=== PATIENT | male | born 1950 | race Caucasian/White ===

== ENCOUNTER 2019-12-31 11:15 | Outpatient (RCR) | payer OTHER, SELFPAY ==
[2019-12-31 13:33] LABS: Abs Immature Grans 0.07 k/cumm (0.0-0.09); Absolute Basophil Count 0.01 k/cumm (0.0-0.2); Absolute Eosinophil Count 0.03 k/cumm (0.0-0.7); Absolute Monocyte Count 1.25 k/cumm (0.11-0.7); Basophils % 0.1; Eosinophils % 0.3; HCT 24.9 % (40.0-50.0); HGB 8.2 g/dL (13.5-17.5); Immature Grans % 0.6 %; Lymphocytes % 14.2; Mean Corp. HGB Concentration 32.9 g/dL (32.0-36.0); Mean Corpuscular Hemoglobin 32.2 pg (27.0-33.0); Mean Corpuscular Volume 97.6 fL (80-95); Mean Platelet Volume 8.4 fL (8.0-11.0); Monocytes % 11.1; Neutrophils % 73.7; Platelet Count 506 x1000/uL (130-400); RBC 2.55 m/cumm (4.50-6.00); RBC Distribution Width 17.7 % (11.8-14.1); White Blood Cell Count 11.28 k/cumm (4.4-10.8)
[2019-12-31 13:38] LABS: Absolute Neutrophil Count 8.31 k/cumm (1.2-6.7)
[2019-12-31 13:56] LABS: Anion Gap 9.5 mmol/L (3-11); BUN 7 mg/dL (7-18); CO2 28.5 mmol/L (21.0-32.0); CREATININE 0.78 mg/dL (0.70-1.30); Chloride 94 mmol/L (98-107); Glucose 120 mg/dL (74-106); Sodium 132 mmol/L (136-145)
[2019-12-31 14:11] LABS: Potassium 2.6 mmol/L (3.5-5.1)
[2019-12-31 14:13] LABS: Diff Comment Diff Reviewed; Hypochromasia 1+; Polychromasia Present
[2020-01-02 13:12] LABS: COVID-19 RT-PCR Result NEGATIVE (Negative)
== END 2020-01-27 23:59 | disposition home or self-care (01) ==
LOC: INF 11:15
PROVIDERS: PCP Family Medicine; Visit Provider Family Medicine
DX: C34.91 Malignant neoplasm of unspecified part of right bronchus or lung (principal); Z11.59 Encounter for screening for other viral diseases
CPT/HCPCS: 80048; U0003; 85025

== ENCOUNTER 2019-12-31 15:17 | Inpatient (IN) | payer OTHER, SELFPAY ==
[2019-12-31] VITALS (71 sets, daily range): BP systolic 105–148; BP diastolic 47–106; PULSE 82–111; RESP 12–28; TEMP 37–37.6; O2SAT 86–97
--- NOTE | 2019-12-31 16:32 | W.ED.GENAD ---
Discharge Plan Disposition Patient Disposition: [facility] INPATIENT Condition: Serious Discharge Details Chief Complaint: GenMedical Clinical Impression: Anemia, Hypokalemia, Hypomagnesemia, Hypocalcemia Primary Care Provider: Mat Mix ED Provider: Ramesh Smith Home Meds and New Rx's Prescriptions: No Action albuterol sulfate [Proventil HFA] 6.7 GM HFA aerosol inhaler 2 puff Inhalation QID PRNQty: 3 RF: 1 Fluticasone/Umeclidin/Vilanter [Trelegy Ellipta 100-62.5-25] 1 EACH BLST.W.DEV 1 ea Inhalation DAILY RF: 0 albuterol sulfate 2.5 mg /3 mL (0.083 %) solution for nebulization 2.5 mg Inhalation Q6H PRN Qty: 180 RF: 4 atorvastatin [Lipitor] 40 mg tablet 20 mg PO DAILY Qty: 45 RF: 4 diltiazem HCl [Cartia XT] 240 mg capsule,extended release 24hr 240 mg PO DAILY Qty: 90 RF: 4 lansoprazole [Prevacid] 30 mg capsule,delayed release(DR/EC) 30 mg PO DAILY Qty: 90 RF: 4 losartan 25 mg tablet 25 mg PO DAILY Qty: 90 RF: 4 oxybutynin chloride 5 mg tablet extended release 24hr 5 mg PO DAILY Qty: 90 RF: 4 tamsulosin 0.4 mg capsule 0.4 mg PO DAILY Qty: 90 RF: 4 sertraline 100 mg tablet 100 mg PO DAILY Qty: 90 RF: 4 aspirin [Ecotrin Low Strength] 81 mg tablet,delayed release (DR/EC) 81 mg PO DAILY Qty: 90 RF: 4 loratadine 10 MG tablet 1 tab PO DAILY PRNRF: 0 fish,bora,flax oils-om3,6,9no1 [[place] 3-6-9 Complex] 400 MG capsule 1 tab PO DAILY RF: 0 Medical Decision Making 69-year-old gentleman presenting after routine blood draw reveals hypokalemia. Patient is currently asymptomatic. He does have recent history of sepsis, right arm PICC line, receiving ceftriaxone daily. He denies any chest pain, fever, dysuria whatsoever. Will obtain EKG, CBC, CMP, magnesium. We will give both p.o. and IV magnesium and reassess. Laboratory values reveal WBC of 12.04 hemoglobin 7.7 hematocrit 23.9 platelet count 449. Sodium 132 potassium 2.7 chloride 95, estimated GFR greater than 60. Creatinine 0.85. Calcium 6.8 magnesium 0.8. Patient given IV potassium, magnesium, calcium. Discussed patient's laboratory values with him. He reports that he has not been eating well lately. He denies any history of anemia or requiring blood transfusion. As above patient is a rather vague and poor historian and I certainly feel as though there is more to the story. He is unable to tell me the exact time when he finished his chemotherapy or what medication he was taking. I attempted to review the annual physical yesterday provided by Dr. Mix however unable to obtain much more information. I spoke with the patient's on the phone, she did have records from [place]. She provided these to me. At the moment the ER is rather busy, I did not have time to read through all the records extremely carefully. Reviewing laboratory values from approximately 2 months ago at that time his hematocrit and hemoglobin were normal. Type and screen obtained, will give the patient 2 units of blood products. Of note after the H&H did result, I did a rectal examination. Normal rectal tone. Stool color brown. Heme negative. Given his multiple electrolyte abnormalities, what appears to be new anemia, I do believe that the patient is likely best served admitted to our facility to receive blood products and align his electrolytes. Patient already has a COVID test pending Case, work-up, addition discussed with Dr. Brody I discussed the case with Dr. Hutchison who evaluated the patient here in the ER, is agreeable to admission. Medical Records Medical records reviewed: Yes I reviewed the patient's medical records. Lab Data Lab results reviewed: Yes I reviewed the patient's lab results. Lab results narrative: Laboratory Tests Range/Units 12/31/19 12/31/19 12/31/19 16:37 16:37 17:59 WBC (4.4-10.8) k/cumm 12.04 H RBC (4.50-6.00) m/cumm 2.46 L Hgb (13.5-17.5) g/dL 7.7 L Hct (40.0-50.0) % 23.9 L MCV (80-95) fL 97.2 H MCH (27.0-33.0) pg 31.3 MCHC (32.0-36.0) g/dL 32.2 RDW (11.8-14.1) % 17.7 H Plt Count (130-400) x1000/uL 449 H MPV (8.0-11.0) fL 8.3 Immature Gran % % 0.6 Neutrophils % 72.5 Band Neutrophils % Lymphocytes % 15.6 Atypical Lymphs % Monocytes % 11.0 Eosinophils % 0.2 Basophils % 0.1 Metamyelocytes % Myelocytes % Promyelocytes % Absolute Neutrophils (1.2-6.7) k/cumm 8.73 H Absolute Lymphocytes (1.2-3.4) k/cumm 1.88 Absolute Monocytes (0.11-0.7) k/cumm 1.32 H Absolute Eosinophils (0.0-0.7) k/cumm 0.02 Absolute Basophils (0.0-0.2) k/cumm 0.01 Nucleated RBCs Differential Comment Other Cell Type RBC Morphology Polychromasia Hypochromasia Poikilocytosis Basophilic Stippling Anisocytosis Microcytosis Macrocytosis Spherocytes Target Cells Tear Drop Cells Ovalocytes Stomatocytes Heredia-[place] Bodies Maribel Cells Acanthocytes (Spur) Schistocytes Sodium (136-145) mmol/L 132 L Cancelled Potassium (3.5-5.1) mmol/L 2.7 L* Cancelled Chloride (98-107) mmol/L 95 L Cancelled Carbon Dioxide (21.0-32.0) mmol/L 29.4 Cancelled Anion Gap (3-11) mmol/L 7.6 Cancelled BUN (7-18) mg/dL 8 Cancelled Creatinine (0.70-1.30) mg/dL 0.85 Cancelled Estimated GFR/1.73 m2 (mL/min/1.73m2) >= 60.00 Cancelled Glucose (74-106) mg/dL 106 Cancelled Calcium (8.5-10.1) mg/dL 6.8 L Cancelled Magnesium (1.8-2.4) mg/dL 0.8 L Cancelled Total Bilirubin (0.2-1.0) mg/dL 0.6 Cancelled AST (15-37) U/L 29 Cancelled ALT (16-63) U/L 27 Cancelled Alkaline Phosphatase (46-116) U/L 75 Cancelled Troponin I Cancelled Total Protein (6.4-8.2) g/dL 6.8 Cancelled Albumin (3.4-5.0) g/dL 2.0 L Cancelled Patient ABO/Rh Antibody Screen Crossmatch Range/Units 12/31/19 12/31/19 12/31/19 17:59 18:20 20:59 WBC (4.4-10.8) k/cumm Cancelled RBC (4.50-6.00) m/cumm Cancelled Hgb (13.5-17.5) g/dL Cancelled Hct (40.0-50.0) % Cancelled MCV (80-95) fL Cancelled MCH (27.0-33.0) pg Cancelled MCHC (32.0-36.0) g/dL Cancelled RDW (11.8-14.1) % Cancelled Plt Count (130-400) x1000/uL Cancelled MPV (8.0-11.0) fL Cancelled Immature Gran % % Cancelled Neutrophils % Cancelled Band Neutrophils % Cancelled Lymphocytes % Cancelled Atypical Lymphs % Cancelled Monocytes % Cancelled Eosinophils % Cancelled Basophils % Cancelled Metamyelocytes % Cancelled Myelocytes % Cancelled Promyelocytes % Cancelled Absolute Neutrophils (1.2-6.7) k/cumm Cancelled Absolute Lymphocytes (1.2-3.4) k/cumm Cancelled Absolute Monocytes (0.11-0.7) k/cumm Cancelled Absolute Eosinophils (0.0-0.7) k/cumm Cancelled Absolute Basophils (0.0-0.2) k/cumm Cancelled Nucleated RBCs Cancelled Differential Comment Cancelled Other Cell Type Cancelled RBC Morphology Cancelled Polychromasia Cancelled Hypochromasia Cancelled Poikilocytosis Cancelled Basophilic Stippling Cancelled Anisocytosis Cancelled Microcytosis Cancelled Macrocytosis Cancelled Spherocytes Cancelled Target Cells Cancelled Tear Drop Cells Cancelled Ovalocytes Cancelled Stomatocytes Cancelled Heredia-[place] Bodies Cancelled Maribel Cells Cancelled Acanthocytes (Spur) Cancelled Schistocytes Cancelled Sodium (136-145) mmol/L Potassium (3.5-5.1) mmol/L Chloride (98-107) mmol/L Carbon Dioxide (21.0-32.0) mmol/L Anion Gap (3-11) mmol/L BUN (7-18) mg/dL Creatinine (0.70-1.30) mg/dL Estimated GFR/1.73 m2 (mL/min/1.73m2) Glucose (74-106) mg/dL Calcium (8.5-10.1) mg/dL Magnesium (1.8-2.4) mg/dL Total Bilirubin (0.2-1.0) mg/dL AST (15-37) U/L ALT (16-63) U/L Alkaline Phosphatase (46-116) U/L Troponin I Cancelled Total Protein (6.4-8.2) g/dL Albumin (3.4-5.0) g/dL Patient ABO/Rh O Positive Antibody Screen Negative Crossmatch See Detail ECG Data Attestation: I personally reviewed and interpreted this ECG (s) as follows: Interpretation: EKG performed at 1628. Sinus tachycardia, ventricular rate 105. Low voltage. No STEMI. Reviewed and interpreted with Dr. Brody HPI General Mode of arrival: ambulatory. Date/Time Provider Initiated Documentation: 12/31/19 15:18. Limitations to Documentation: no limitations. Information obtained by: patient. HPI Narrative: This is a 69-year-old gentleman with history of small cell carcinoma, GERD, smoker, chronic back pain, morbid obesity, hypertension, anxiety, recently diagnosed with sepsis in [place], PICC line in his right arm, receiving ceftriaxone daily. He was scheduled for routine laboratory draw today, subsequently received a phone call from his primary care office telling him to come to the ER for a low potassium. Patient reports that he generally feels well, just overall mild fatigue.. Denies headache, fever, chest pain. He reports a chronic dry cough secondary to his COPD but no acute changes of his cough or dyspnea. Denies abdominal pain, nausea, vomiting. Does report chronic back pain. Patient reports that he is scheduled to receive his antibiotics for another few days and then had his PICC line removed on Sunday here at this facility. He denies any dysuria or diarrhea. He tells me that he has never had low potassium before. The patient reports that he had 2- COVID test in [place], was tested again today, results pending. Patient is a very vague and poor historian. Related Data Home Medications Medication Instructions Recorded Confirmed fish,bora,flax oils-om3,6,9no1 1 tab PO DAILY 01/07/15 12/31/19 [[place] 3-6-9 Complex] loratadine 1 tab PO DAILY PRN 01/07/15 12/31/19 albuterol sulfate [Proventil Hfa] 2 puff INHALATION QID PRN #3 ea 05/31/16 12/31/19 Fluticasone/Umeclidin/Vilanter 1 ea INHALATION DAILY 12/18/17 12/31/19 [Trelegy Ellipta 100-62.5-25] albuterol sulfate 2.5 mg INHALATION Q6H PRN #180 ea 01/14/19 12/31/19 atorvastatin 40 mg tablet 20 mg PO DAILY #45 tab 01/14/19 12/31/19 diltiazem HCl 240 mg 240 mg PO DAILY #90 tab-cap 01/14/19 12/31/19 capsule,extended release 24 hr lansoprazole 30 mg capsule,delayed 30 mg PO DAILY #90 tab-cap 01/14/19 12/31/19 release losartan 25 mg tablet 25 mg PO DAILY #90 tab-cap 01/14/19 12/31/19 oxybutynin chloride 5 mg 5 mg PO DAILY #90 tab-cap 01/14/19 12/31/19 tablet,extended release 24 hr tamsulosin 0.4 mg capsule 0.4 mg PO DAILY #90 tab-cap 01/14/19 12/31/19 sertraline 100 mg tablet 100 mg PO DAILY #90 tab-cap 02/04/19 12/31/19 aspirin 81 mg tablet,delayed 81 mg PO DAILY #90 tab-cap 03/18/19 12/31/19 release Previous Rx's Medication Instructions Recorded albuterol sulfate 2.5 mg INHALATION Q6H PRN #180 ea 01/14/19 atorvastatin 40 mg tablet 20 mg PO DAILY #45 tab 01/14/19 diltiazem HCl 240 mg 240 mg PO DAILY #90 tab-cap 01/14/19 capsule,extended release 24 hr lansoprazole 30 mg capsule,delayed 30 mg PO DAILY #90 tab-cap 01/14/19 release losartan 25 mg tablet 25 mg PO DAILY #90 tab-cap 01/14/19 oxybutynin chloride 5 mg 5 mg PO DAILY #90 tab-cap 01/14/19 tablet,extended release 24 hr tamsulosin 0.4 mg capsule 0.4 mg PO DAILY #90 tab-cap 01/14/19 sertraline 100 mg tablet 100 mg PO DAILY #90 tab-cap 02/04/19 aspirin 81 mg tablet,delayed 81 mg PO DAILY #90 tab-cap 03/18/19 release Allergies Allergy/AdvReac Type Severity Reaction Status Date / Time lansoprazole Allergy Severe SKIN RASH Unverified 12/31/19 15:38 General Stated Complaint: GenMedical BEATRIZ: 2 Review of Systems Constitutional Constitutional: Denies fatigue, Denies fever(s) and Denies weakness ENT Ears, Nose, Mouth, and Throat: Denies sore throat Cardiovascular Cardiovascular: Denies chest pain and Denies dyspnea Respiratory Respiratory: Reports cough (Chronic) and Denies dyspnea Gastrointestinal Gastrointestinal: Denies abdominal pain, Denies nausea and Denies vomiting Genitourinary Genitourinary: Denies dysuria Musculoskeletal Musculoskeletal: Reports back pain, Denies numbness and Denies tingling Integumentary/Breasts Skin/Breast: Denies rash Neurologic Neurologic: Denies numbness, Denies tingling and Denies weakness Endocrine Endocrine: Denies fatigue PFS Surgical History Open Carpal Tunnel release right Repair, ACL (~1991) Family History Mother , 53 Essential hypertension Heart disease Stroke Father , 79 Essential hypertension Asthma Prostate cancer COPD (chronic obstructive pulmonary disease) Sister No problems noted. Sister Essential hypertension Brother Essential hypertension Maternal Grandfather No problems noted. Paternal Grandfather Prostate cancer Maternal Grandmother Diabetes Essential hypertension Paternal Grandmother Diabetes Essential hypertension Heart disease Son Essential hypertension Daughter Essential hypertension Social History Smoking/Tobacco Use Status: Former Tobacco Use Quit Date: 11/27/12 Alcohol Intake: current Alcohol Intake frequency: a few times a week Alcohol type: beer Drug use: Socially Substance use type: does not use Counseling given: Yes Household members: spouse Housing: other Details: Camper Pets and animals: No Sexually active: No Do you think of yourself as: straight/heterosexual Current gender identity: male What is your relationship status?: How often do you talk on the phone with friends or family?: decline to answer How often do you get together with friends or relatives?: once per week How often do you attend mormonism or bahai services?: decline to answer Do you belong to any clubs or organized social groups?: yes Panel score (0-1 are the most socially isolated patients): 2 Duration: 45-60 minutes/day Frequency: daily Munira/Restoration: Latter-Day Special munira needs: Yes Details: Last rites Seatbelt use: always Drive intox or ride w/intox hook up driver: No Do you feel safe at home: Yes Do you feel safe in your relationship?: Yes Exam Const General: cooperative, healthy appearing, comfortable and no acute distress Orientation: alert, awake and oriented x3 HENMT Head: normal to inspection, normocephalic and atraumatic Mouth: moist mucous membranes Throat: posterior oropharynx normal Eyes Conjunctivae: conjunctivae normal Neck Neck: normal visual inspection, full ROM, trachea midline, supple and nontender Resp Effort & Inspection: normal respiratory effort and able to speak in complete sentences Auscultation: diminished lung sounds bilaterally in the lower lung armendariz (Otherwise unremarkable) Cardio Rate: regular rate (94) Rhythm: regular rhythm GI Inspection: normal to inspection and obesity Palpation: soft and nontender Back/Spine/Pelvis Back: back tenderness (Diffuse lumbar, slightly worse in the left) Skin General skin exam: no rashes or lesions noted Neuro General: patient alert, patient awake, patient oriented x3, moves all extremities and no focal motor deficits Motor: muscle tone normal throughout and strength 5/5 throughout Sensory Exam: no sensory deficits noted Extrem General: normal to inspection, full ROM, capillary refill normal and other (Right upper extremity PICC line in place) Psych Appearance: grossly normal Mental Status: mental status grossly normal Course Vital Signs Vital signs: Vital Signs Temperature 37.6 C 12/31/19 15:28 Pulse 99 H 12/31/19 15:28 Respiratory Rate 17 12/31/19 15:28 Blood Pressure 121/59 L 12/31/19 15:28 Pulse Oximetry 95 12/31/19 15:28 Temperature 37.6 C 12/31/19 15:28 Temperature Source Oral 12/31/19 15:28 Pulse 99 H 12/31/19 15:28 Respiratory Rate 17 12/31/19 15:28 Respiratory Effort Pursed Lip 12/31/19 15:37 Blood Pressure 121/59 L 12/31/19 15:28 Blood Pressure Position Supine 12/31/19 15:28 Pulse Oximetry 95 12/31/19 15:28 Oxygen Delivery Method Room Air 12/31/19 15:28 Oxygen Flow Rate 0 12/31/19 15:28 Pain Level 0 12/31/19 15:28 Critical Care Time Critical Care Time Critical Care Time: Yes Total Critical Care Time: 35 Attestation: Upon my evaluation, this patient had a high probability of clinically significant, life-threatening deterioration due to their current medical conditions, which required my direct attention, intervention, and personal management. I have personally provided greater than 30 minutes of critical care time exclusive of the time spend on separately billable procedures. Time includes obtaining a history, examining the patient, pulse oximetry, review of laboratory data, radiology results, discussion with consultants, arranging urgent treatment with development of a management plan, evaluation of patient's response to treatment, and monitoring for potential decompensation. Interventions were performed as documented above.
[2019-12-31 16:45] LABS: Abs Immature Grans 0.07 k/cumm (0.0-0.09); Absolute Basophil Count 0.01 k/cumm (0.0-0.2); Absolute Lymphocyte Count 1.88 k/cumm (1.2-3.4); Basophils % 0.1; Eosinophils % 0.2; HCT 23.9 % (40.0-50.0); HGB 7.7 g/dL (13.5-17.5); Immature Grans % 0.6 %; Lymphocytes % 15.6; Mean Corp. HGB Concentration 32.2 g/dL (32.0-36.0); Mean Corpuscular Hemoglobin 31.3 pg (27.0-33.0); Mean Corpuscular Volume 97.2 fL (80-95); Mean Platelet Volume 8.3 fL (8.0-11.0); Neutrophils % 72.5; Platelet Count 449 x1000/uL (130-400); RBC 2.46 m/cumm (4.50-6.00); RBC Distribution Width 17.7 % (11.8-14.1); White Blood Cell Count 12.04 k/cumm (4.4-10.8)
[2019-12-31 16:46] LABS: Absolute Eosinophil Count 0.02 k/cumm (0.0-0.7); Absolute Monocyte Count 1.32 k/cumm (0.11-0.7); Absolute Neutrophil Count 8.73 k/cumm (1.2-6.7)
[2019-12-31] MEDS: Potassium Chloride 20 MEQ TABCR 40 MEQ PO (16:46)
[2019-12-31] MEDS: POTASSIUM CHLORIDE 20 MEQ/100 ML BAG 50 MEQ IVPB (16:47)
[2019-12-31 17:00] LABS: ALT 27 U/L (16-63); AST 29 U/L (15-37); Alkaline Phosphatase 75 U/L (46-116); Anion Gap 7.6 mmol/L (3-11); BUN 8 mg/dL (7-18); Bilirubin, Total 0.6 mg/dL (0.2-1.0); CO2 29.4 mmol/L (21.0-32.0); CREATININE 0.85 mg/dL (0.70-1.30); Chloride 95 mmol/L (98-107); Glucose 106 mg/dL (74-106); Sodium 132 mmol/L (136-145); Total Protein 6.8 g/dL (6.4-8.2)
[2019-12-31] MEDS: Normal Saline 1,000 ML 150 ML IV ×2 (17:00→21:09)
[2019-12-31 17:05] LABS: Potassium 2.7 mmol/L (3.5-5.1)
[2019-12-31 17:06] LABS: Calcium 6.8 mg/dL (8.5-10.1); Magnesium 0.8 mg/dL (1.8-2.4)
[2019-12-31] MEDS: MAGNESIUM SULFATE 2 GM/50 ML BAG IVPB (17:46)
--- NOTE | 2019-12-31 19:08 | W.PM.HP.N ---
Date of service: 12/31/19 Time of Service: 19:08 Assessment and Plan Assessment and plan (1) Weakness: Status: Acute Assessment and plan: 1. Weakness. No doubt multifactorial, with contributions from baseline anemia, electrolyte disturbances, generalized malnutrition, sequelae of recent sepsis -- and underlying malignancy. 2. Sepsis: continue Rocephin 3. Hypokalemia: replace and monitor 4. Hypomag: replace and monitor 5. Hypocalcemia: corrects to normal, no treatment required 6. Anemia: follow for now, unclear if related to recent chemo or disease or other 7. 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 Was seen PCP tday, labs drawn and then asked to come to ER for various abnormalities: K 2.7, Ca 6.8 (alb 2.0), Mg 0.8, Hct 23 (this is similar to most recent from [place]). States he feels generally weak, but actually better since he has been here; has received amp Ca; 2 gm Mg; KCl (20 IV, 40 PO). Admitted for further management. Review of Systems All systems reviewed & are unremarkable except as noted in HPI and below PFSH Surgical History Open Carpal Tunnel release right Repair, ACL (~1991) Family History Mother , 53 Essential hypertension Heart disease Stroke Father , 79 Essential hypertension Asthma Prostate cancer COPD (chronic obstructive pulmonary disease) Sister No problems noted. Sister Essential hypertension Brother Essential hypertension Maternal Grandfather No problems noted. Paternal Grandfather Prostate cancer Maternal Grandmother Diabetes Essential hypertension Paternal Grandmother Diabetes Essential hypertension Heart disease Son Essential hypertension Daughter Essential hypertension Social History Smoking/Tobacco Use Status: Former Tobacco Use Quit Date: 11/27/12 Alcohol Intake: current Alcohol Intake frequency: a few times a week Alcohol type: beer Drug use: Socially Substance use type: does not use Counseling given: Yes Household members: spouse Housing: other Details: Camper Pets and animals: No Sexually active: No Do you think of yourself as: straight/heterosexual Current gender identity: male What is your relationship status?: How often do you talk on the phone with friends or family?: decline to answer How often do you get together with friends or relatives?: once per week How often do you attend islam or rastafari services?: decline to answer Do you belong to any clubs or organized social groups?: yes Panel score (0-1 are the most socially isolated patients): 2 Duration: 45-60 minutes/day Frequency: daily Munira/Nondenominational: Caodaism Special munira needs: Yes Details: Last rites Seatbelt use: always Drive intox or ride w/intox delivery driver: No Do you feel safe at home: Yes Do you feel safe in your relationship?: Yes Meds Home Medications and Allergies Home Medications Medication Instructions Recorded Confirmed Type fish,bora,flax oils-om3,6,9no1 1 tab PO DAILY 01/07/15 12/31/19 History [[place] 3-6-9 Complex] loratadine 1 tab PO DAILY PRN 01/07/15 12/31/19 History albuterol sulfate [Proventil Hfa] 2 puff INHALATION QID PRN #3 ea 05/31/16 12/31/19 History Fluticasone/Umeclidin/Vilanter 1 ea INHALATION DAILY 12/18/17 12/31/19 History [Trelegy Ellipta 100-62.5-25] albuterol sulfate 2.5 mg INHALATION Q6H PRN #180 ea 01/14/19 12/31/19 Rx atorvastatin 40 mg tablet 20 mg PO DAILY #45 tab 01/14/19 12/31/19 Rx diltiazem HCl 240 mg 240 mg PO DAILY #90 tab-cap 01/14/19 12/31/19 Rx capsule,extended release 24 hr lansoprazole 30 mg capsule,delayed 30 mg PO DAILY #90 tab-cap 01/14/19 12/31/19 Rx release losartan 25 mg tablet 25 mg PO DAILY #90 tab-cap 01/14/19 12/31/19 Rx oxybutynin chloride 5 mg 5 mg PO DAILY #90 tab-cap 06/18/19 06/03/20 Rx tablet,extended release 24 hr tamsulosin 0.4 mg capsule 0.4 mg PO DAILY #90 tab-cap 01/14/19 12/31/19 Rx sertraline 100 mg tablet 100 mg PO DAILY #90 tab-cap 02/04/19 12/31/19 Rx aspirin 81 mg tablet,delayed 81 mg PO DAILY #90 tab-cap 03/18/19 12/31/19 Rx release Allergies Allergy/AdvReac Type Severity Reaction Status Date / Time lansoprazole Allergy Severe SKIN RASH Unverified 12/31/19 15:38 Exam Narrative Exam Narrative: 112/71, 95, 22, 37.6, 96% 1L. HEENT atraumatic; neck supple; lungs clear; heart distant, frequent ectopic; abdomen soft and NT; extremities w/o edema; neuro ox3, non-focal Results Labs Result diagrams: 12/31/19 16:37 12/31/19 16:37 Labs: Laboratory Results - last 24 hr 12/31/19 12/31/19 12/31/19 16:37 16:37 17:59 WBC 12.04 H RBC 2.46 L Hgb 7.7 L Hct 23.9 L MCV 97.2 H MCH 31.3 MCHC 32.2 RDW 17.7 H Plt Count 449 H MPV 8.3 Immature Gran % 0.6 Neutrophils % 72.5 Band Neutrophils % Lymphocytes % 15.6 Atypical Lymphs % Monocytes % 11.0 Eosinophils % 0.2 Basophils % 0.1 Metamyelocytes % Myelocytes % Promyelocytes % Absolute Neutrophils 8.73 H Absolute Lymphocytes 1.88 Absolute Monocytes 1.32 H Absolute Eosinophils 0.02 Absolute Basophils 0.01 Nucleated RBCs Differential Comment Other Cell Type RBC Morphology Polychromasia Hypochromasia Poikilocytosis Basophilic Stippling Anisocytosis Microcytosis Macrocytosis Spherocytes Target Cells Tear Drop Cells Ovalocytes Stomatocytes Heredia-[place] Bodies [place] Cells Acanthocytes (Spur) Schistocytes Sodium 132 L Cancelled Potassium 2.7 L* Cancelled Chloride 95 L Cancelled Carbon Dioxide 29.4 Cancelled Anion Gap 7.6 Cancelled BUN 8 Cancelled Creatinine 0.85 Cancelled Estimated GFR/1.73 m2 >= 60.00 Cancelled Glucose 106 Cancelled Calcium 6.8 L Cancelled Magnesium 0.8 L Cancelled Total Bilirubin 0.6 Cancelled AST 29 Cancelled ALT 27 Cancelled Alkaline Phosphatase 75 Cancelled Troponin I Cancelled Total Protein 6.8 Cancelled Albumin 2.0 L Cancelled Crossmatch 12/31/19 12/31/19 12/31/19 17:59 18:20 20:59 WBC Cancelled RBC Cancelled Hgb Cancelled Hct Cancelled MCV Cancelled MCH Cancelled MCHC Cancelled RDW Cancelled Plt Count Cancelled MPV Cancelled Immature Gran % Cancelled Neutrophils % Cancelled Band Neutrophils % Cancelled Lymphocytes % Cancelled Atypical Lymphs % Cancelled Monocytes % Cancelled Eosinophils % Cancelled Basophils % Cancelled Metamyelocytes % Cancelled Myelocytes % Cancelled Promyelocytes % Cancelled Absolute Neutrophils Cancelled Absolute Lymphocytes Cancelled Absolute Monocytes Cancelled Absolute Eosinophils Cancelled Absolute Basophils Cancelled Nucleated RBCs Cancelled Differential Comment Cancelled Other Cell Type Cancelled RBC Morphology Cancelled Polychromasia Cancelled Hypochromasia Cancelled Poikilocytosis Cancelled Basophilic Stippling Cancelled Anisocytosis Cancelled Microcytosis Cancelled Macrocytosis Cancelled Spherocytes Cancelled Target Cells Cancelled Tear Drop Cells Cancelled Ovalocytes Cancelled Stomatocytes Cancelled Heredia-[place] Bodies Cancelled [place] Cells Cancelled Acanthocytes (Spur) Cancelled Schistocytes Cancelled Sodium Potassium Chloride Carbon Dioxide Anion Gap BUN Creatinine Estimated GFR/1.73 m2 Glucose Calcium Magnesium Total Bilirubin AST ALT Alkaline Phosphatase Troponin I Cancelled Total Protein Albumin Crossmatch See Detail Last Vital Signs Temp 37.6 C 12/31/19 15:28 Pulse 95 H 12/31/19 18:02 Resp 22 12/31/19 18:02 BP 112/71 12/31/19 18:02 Pulse Ox 96 12/31/19 18:05 COVID-19 Screening In the past 14 days, have you traveled outside of [place] or [place]?: YES Had IN PERSON contact w/suspected or confirmed C-19 person: No
[2020-01-01] VITALS (12 sets, daily range): BP systolic 110–140; BP diastolic 61–80; PULSE 78–98; RESP 16–24; TEMP 36.3–37.8; O2SAT 87–94
[2020-01-01] MEDS: Acetaminophen 325 MG TAB 650 MG PO ×2 (03:08→18:32)
[2020-01-01] MEDS: POTASSIUM CHLORIDE/0.9% NACL 1,000 ML 100 MEQ IV ×2 (04:31→14:09)
[2020-01-01 06:52] LABS: HCT 25.8 % (40.0-50.0); HGB 8.4 g/dL (13.5-17.5); Mean Corp. HGB Concentration 32.6 g/dL (32.0-36.0); Mean Corpuscular Hemoglobin 31.2 pg (27.0-33.0); Mean Corpuscular Volume 95.9 fL (80-95); Mean Platelet Volume 8.5 fL (8.0-11.0); Platelet Count 401 x1000/uL (130-400); RBC 2.69 m/cumm (4.50-6.00); RBC Distribution Width 17.6 % (11.8-14.1); White Blood Cell Count 9.81 k/cumm (4.4-10.8)
[2020-01-01 07:03] LABS: Anion Gap 9.3 mmol/L (3-11); BUN 8 mg/dL (7-18); CO2 25.7 mmol/L (21.0-32.0); CREATININE 0.83 mg/dL (0.70-1.30); Calcium 6.9 mg/dL (8.5-10.1); Chloride 98 mmol/L (98-107); Glucose 114 mg/dL (74-106); Magnesium 1.2 mg/dL (1.8-2.4); Sodium 133 mmol/L (136-145)
[2020-01-01 07:15] LABS: Potassium 2.9 mmol/L (3.5-5.1)
[2020-01-01] MEDS: dilTIAZem CD 120 MG CAPCR 240 MG PO (08:25)
[2020-01-01] MEDS: Tamsulosin 0.4 MG CAPCR PO (08:25)
[2020-01-01] MEDS: Oxybutynin-CR 5 MG TABCR PO (08:25)
[2020-01-01] MEDS: Sertraline 50 MG TAB 100 MG PO (08:25)
[2020-01-01] MEDS: Lansoprazole 30 MG CAPCR PO (08:25)
[2020-01-01] MEDS: Aspirin E.C. 81 MG TABEC PO (08:25)
[2020-01-01] MEDS: Losartan 25 MG TAB PO (08:25)
[2020-01-01] MEDS: MAGNESIUM SULFATE 2 GM/50 ML BAG IVPB (10:04)
[2020-01-01] MEDS: Potassium Chloride 20 MEQ TABCR 40 MEQ PO (10:04)
--- NOTE | 2020-01-01 11:03 | W.PM.PROGNOT ---
Date of Service Date of service: 01/01/20 Time of Service: 11:04 Assessment and Plan Assessment and plan (1) Hypokalemia: Status: Acute Assessment and plan: Etiology for this is not entirely clear, perhaps a consequence of recent sepsis episode plus chemotherapy? He is not on any medications that lead to potassium loss through GI or urinary sources. Continue p.o. and IV supplementation and recheck potassium later today. (2) Hypomagnesemia: Status: Acute Assessment and plan: As with his potassium level, the cause for his hypomagnesemia is not clear, perhaps GI losses? His recent bout of possible diverticulitis in [place] with septicemia might have been a cause? In any event, continue IV replacement and recheck levels. (3) Anemia: Status: Chronic Assessment and plan: Modest amount transfusion. Suspect he has some marrow suppression from his recent chemotherapy. Heme-negative stool in the ER. Monitor hemoglobin and hematocrit and hopefully he will not require further transfusion. (4) Weakness: Status: Acute Assessment and plan: Improving with correction of his metabolic problems. I do not think there is a primary neurologic issue. (5) Small cell carcinoma of lung: Status: Acute Assessment and plan: No pain complaints, no nausea. No unusual shortness of breath. States that his sense of taste and smell are improving following completion of his most recent round of chemotherapy. Treatment plan yet to be defined with appointment locally in the works but not yet completed. (6) GERD (gastroesophageal reflux disease): Status: Chronic Assessment and plan: Symptoms controlled with chronic PPI, no changes planned. (7) Essential hypertension: Status: Chronic Assessment and plan: Blood pressure acceptable on his outpatient medications, no changes indicated at this time. (8) Chronic obstructive lung disease: Status: Chronic Assessment and plan: Subjectively feels back to his baseline with regard to breathing. Known to have hypoxemia when he is sleeping but not during the daytime. Unlikely he will qualify for home oxygen and it probably is not indicated. Continue his home trilogy inhaler. (9) Obstructive sleep apnea: Status: Chronic Assessment and plan: Carries a label, I do not have documentation as to a formal diagnostic work-up. He plans on borrowing a CPAP unit from an extended family member. (10) History of E. coli septicemia: Status: Acute Assessment and plan: I do not have documentation but by report from patient and his he will be completing 10 days of IV ceftriaxone tomorrow after which his PICC line can be pulled. E. coli bacteremia presumably from an episode of diverticulitis while he was in [place]. (11) Person under investigation for COVID-19: Status: Acute Assessment and plan: No symptoms clearly indicating active infection. Chronic COPD with chronic cough does not seem to be different from his baseline by his report. Not more short of breath. Has not been febrile. Loss of smell and taste probably from recent chemo. This getting better spontaneously. Nasal swab from admission still pending. Will repeat tomorrow in hopes that we can and quarantine sooner. Subjective Subjective Interval history since last seen: 69-year-old man who [place] in [place] who returned to [place] from [place] 6 days ago admitted because of weakness and metabolic abnormalities with hypokalemia hypomagnesemia and worsening anemia. Recent diagnosis of small cell lung cancer and has undergone chemotherapy. This on a background of COPD and untreated sleep apnea. Feels better today than he did yesterday. His potassium is a little bit better, magnesium a little better. His calcium is low but correcting for his low albumin places him in the normal range. He received 2 units of packed red cells overnight with no complications and his hemoglobin has gone from 7.7-8.4. He has not had any overt bleeding. There is been no fever overnight. He has a nonproductive mild cough. His oxygen saturations when he is asleep dropped into the 87% range. He tells me this is not new, he has known sleep apnea and his oxygen levels go low when he is lying down but are fine when he is upright. This is confirmed by his who I speak with on his phone. Denies pain anywhere. Reports appetite improving. States that he had poor sense of smell and taste but that seems to be getting better with time. No nausea. No abdominal pain. No dysuria. He does complain of bilateral sciatica which is chronic and nothing different from past. He has gotten up, still feels a little weak but definitely better compared to yesterday. Results of COVID testing from admission still pending. Telemetry has shown sinus rhythm. Exam Narrative Exam Narrative: Overweight man lying in bed in no respiratory distress with oxygen at 1 L/min, SaO2 temperature normal, blood pressure 140/80. Sclera clear. Cannot see neck veins because of his neck size. His lungs have initial coarse expiratory wheezing in both lung armendariz but after a few deep breaths these clear, diminished breath sounds throughout. No rub. No crackles. Heart tones soft regular no murmur S3 or S4. Abdomen obese with no tenderness to palpation in any quadrant. Normal bowel sounds. Extremities warm, no pitting edema. Sits up with a little bit of assistance. Gets a little winded doing so. No tremor. Symmetric movement of all extremities. Oriented x4. Objective Objective Clinical Data: Abnormal lab results 12/31/19 12/31/19 12/31/19 Range/Units 16:37 16:37 18:20 WBC 12.04 H (4.4-10.8) k/cumm RBC 2.46 L (4.50-6.00) m/cumm Hgb 7.7 L (13.5-17.5) g/dL Hct 23.9 L (40.0-50.0) % MCV 97.2 H (80-95) fL RDW 17.7 H (11.8-14.1) % Plt Count 449 H (130-400) x1000/uL Absolute Neutrophils 8.73 H (1.2-6.7) k/cumm Absolute Monocytes 1.32 H (0.11-0.7) k/cumm Sodium 132 L (136-145) mmol/L Potassium 2.7 L* (3.5-5.1) mmol/L Chloride 95 L (98-107) mmol/L Glucose (74-106) mg/dL Calcium 6.8 L (8.5-10.1) mg/dL Magnesium 0.8 L (1.8-2.4) mg/dL Albumin 2.0 L (3.4-5.0) g/dL Crossmatch See Detail 01/01/20 01/01/20 Range/Units 06:30 06:30 WBC (4.4-10.8) k/cumm RBC 2.69 L (4.50-6.00) m/cumm Hgb 8.4 L (13.5-17.5) g/dL Hct 25.8 L (40.0-50.0) % MCV 95.9 H (80-95) fL RDW 17.6 H (11.8-14.1) % Plt Count 401 H (130-400) x1000/uL Absolute Neutrophils (1.2-6.7) k/cumm Absolute Monocytes (0.11-0.7) k/cumm Sodium 133 L (136-145) mmol/L Potassium 2.9 L* (3.5-5.1) mmol/L Chloride (98-107) mmol/L Glucose 114 H (74-106) mg/dL Calcium 6.9 L (8.5-10.1) mg/dL Magnesium 1.2 L (1.8-2.4) mg/dL Albumin (3.4-5.0) g/dL Crossmatch Vital Signs Temperature 36.6 C 01/01/20 08:25 Temperature Source Tympanic 01/01/20 08:25 Pulse 78 01/01/20 08:25 Pulse Rhythm Regular 01/01/20 08:40 Pulse 94 H 12/31/19 20:01 Respiratory Rate 20 01/01/20 08:25 Respiratory Effort 01/01/20 08:40 Respiratory Depth Normal 01/01/20 08:40 Respiratory Pattern Normal 01/01/20 08:40 Blood Pressure 140/80 01/01/20 08:25 Blood Pressure Mean 62 12/31/19 20:01 Blood Pressure Position Supine 12/31/19 15:28 Pulse Oximetry 92 L 01/01/20 08:25 Oxygen Delivery Method Nasal Cannula 01/01/20 08:25 Oxygen Flow Rate 1 01/01/20 08:25 Pain Level 4 01/01/20 03:08 Intake & Output 12/31/19 12/31/19 01/01/20 11:59 23:59 11:59 Intake Total 1132.5 / 1132.5 2154 / 2154 Output Total 400 / 400 650 / 650 Balance 732.5 / 732.5 1504 / 1504 Weight 112.6 kg 114.8 kg Intake: IV 882.5 / 882.5 1000 / 1000 Oral 250 / 250 450 / 450 Blood Product 560 / 560 Rbc Leuko Reduced Unit 280 / 280 [id number] Rbc Leuko Reduced Unit 280 / 280 [id number] Other 144 / 144 Rbc Leuko Reduced Unit 100 / 100 [id number] Rbc Leuko Reduced Unit 44 / 44 [id number] Output: Urine 400 / 400 650 / 650 Other: Urine Color Yellow Yellow Urine Appearance Clear Clear Urine Odor Normal Normal Stool Occult Blood Negative Stool Size Small Large Stool Characteristics Soft Soft Formed Liquid Brown Voiding Methods Bedside Commode Bedside Commode Laboratory Results WBC 9.81 k/cumm (4.4-10.8) 01/01/20 06:30 RBC 2.69 m/cumm (4.50-6.00) L 01/01/20 06:30 Hgb 8.4 g/dL (13.5-17.5) L 01/01/20 06:30 Hct 25.8 % (40.0-50.0) L 01/01/20 06:30 MCV 95.9 fL (80-95) H 01/01/20 06:30 MCH 31.2 pg (27.0-33.0) 01/01/20 06:30 MCHC 32.6 g/dL (32.0-36.0) 01/01/20 06:30 RDW 17.6 % (11.8-14.1) H 01/01/20 06:30 Plt Count 401 x1000/uL (130-400) H 01/01/20 06:30 MPV 8.5 fL (8.0-11.0) 01/01/20 06:30 Immature Gran % Cancelled 12/31/19 17:59 Neutrophils % Cancelled 12/31/19 17:59 Band Neutrophils % Cancelled 12/31/19 17:59 Lymphocytes % Cancelled 12/31/19 17:59 Atypical Lymphs % Cancelled 12/31/19 17:59 Monocytes % Cancelled 12/31/19 17:59 Eosinophils % Cancelled 12/31/19 17:59 Basophils % Cancelled 12/31/19 17:59 Metamyelocytes % Cancelled 12/31/19 17:59 Myelocytes % Cancelled 12/31/19 17:59 Promyelocytes % Cancelled 12/31/19 17:59 Absolute Neutrophils Cancelled 12/31/19 17:59 Absolute Lymphocytes Cancelled 12/31/19 17:59 Absolute Monocytes Cancelled 12/31/19 17:59 Absolute Eosinophils Cancelled 12/31/19 17:59 Absolute Basophils Cancelled 12/31/19 17:59 Nucleated RBCs Cancelled 12/31/19 17:59 Differential Comment Cancelled 12/31/19 17:59 Other Cell Type Cancelled 12/31/19 17:59 RBC Morphology Cancelled 12/31/19 17:59 Polychromasia Cancelled 12/31/19 17:59 Hypochromasia Cancelled 12/31/19 17:59 Poikilocytosis Cancelled 12/31/19 17:59 Basophilic Stippling Cancelled 12/31/19 17:59 Anisocytosis Cancelled 12/31/19 17:59 Microcytosis Cancelled 12/31/19 17:59 Macrocytosis Cancelled 12/31/19 17:59 Spherocytes Cancelled 12/31/19 17:59 Target Cells Cancelled 12/31/19 17:59 Tear Drop Cells Cancelled 12/31/19 17:59 Ovalocytes Cancelled 12/31/19 17:59 Stomatocytes Cancelled 12/31/19 17:59 Heredia-Parmelee Bodies Cancelled 12/31/19 17:59 Maribel Cells Cancelled 12/31/19 17:59 Acanthocytes (Spur) Cancelled 12/31/19 17:59 Schistocytes Cancelled 12/31/19 17:59 Sodium 133 mmol/L (136-145) L 01/01/20 06:30 Potassium 2.9 mmol/L (3.5-5.1) L* 01/01/20 06:30 Chloride 98 mmol/L (98-107) 01/01/20 06:30 Carbon Dioxide 25.7 mmol/L (21.0-32.0) 01/01/20 06:30 Anion Gap 9.3 mmol/L (3-11) 01/01/20 06:30 BUN 8 mg/dL (7-18) 01/01/20 06:30 Creatinine 0.83 mg/dL (0.70-1.30) 01/01/20 06:30 Estimated GFR/1.73 m2 >= 60.00 (mL/min/1.73m2) 01/01/20 06:30 Glucose 114 mg/dL (74-106) H 01/01/20 06:30 Calcium 6.9 mg/dL (8.5-10.1) L 01/01/20 06:30 Magnesium 1.2 mg/dL (1.8-2.4) L 06/04/20 06:30 Total Bilirubin Cancelled 12/31/19 17:59 AST Cancelled 12/31/19 17:59 ALT Cancelled 12/31/19 17:59 Alkaline Phosphatase Cancelled 12/31/19 17:59 Troponin I Cancelled 12/31/19 20:59 Total Protein Cancelled 12/31/19 17:59 Albumin Cancelled 12/31/19 17:59 COVID-19 PCR Cancelled 12/31/19 19:48 Nasopharyn COVID-19 PCR Cancelled 12/31/19 19:48 Ref Test Perform Site Cancelled 12/31/19 19:48 Patient ABO/Rh O Positive 12/31/19 18:20 Antibody Screen Negative 12/31/19 18:20 Crossmatch See Detail 12/31/19 18:20
--- NOTE | 2020-01-01 12:21 | PHA.REVIEW ---
Pharmacy Admission Review - Admission Clinical Review (Last Updated 01/01/20 @ 11:06 by Evin Barnes MD) Person under investigation for COVID-19 (Acute) History of E. coli septicemia (Acute) Hypokalemia (Acute) Hypomagnesemia (Acute) Hypocalcemia (Acute) Weakness (Acute) Small cell carcinoma of lung (Acute) lansoprazole Allergy (Severe, Unverified 12/31/19 15:38) SKIN RASH Height 5 ft 10 in Weight 114.8 kg - Renal Dosing Renal Dosing: BUN 8 mg/dL (7-18) 01/01/20 06:30 Creatinine 0.83 mg/dL (0.70-1.30) 01/01/20 06:30 Medications needing adjustments: Reviewed - Anticoagulation Anticoagulation: Hgb 8.4 g/dL (13.5-17.5) L 01/01/20 06:30 Hct 25.8 % (40.0-50.0) L 01/01/20 06:30 Plt Count 401 x1000/uL (130-400) H 01/01/20 06:30 Creatinine 0.83 mg/dL (0.70-1.30) 01/01/20 06:30 DVT Prohphylaxis: Reviewed Medications: Aspirin Therapeutic Anticoagulation: N/A - Opiate Usage Evaluate Pain Scale/Pains Meds: N/A - Relevant Labs Sodium 133 mmol/L (136-145) L 01/01/20 06:30 Potassium 2.9 mmol/L (3.5-5.1) L* 01/01/20 06:30 Chloride 98 mmol/L (98-107) 01/01/20 06:30 Magnesium 1.2 mg/dL (1.8-2.4) L 01/01/20 06:30 Electrolytes, C-Reactive P, ESR: Reviewed (Required Calcium Gluconate in the ED; replaced magnesium and potassium x2) - DM Control DM Control: Glucose 114 mg/dL (74-106) H 01/01/20 06:30 Insulin Dosing: Reviewed - Heart Failure/CT Heart Failure/CT: Troponin I Cancelled 12/31/19 20:59 - BP Control BP Control: Blood Pressure 126/72 Blood Pressure 140/80 Blood Pressure 133/74 Blood Pressure 133/74 Blood Pressure 137/77 Blood Pressure 122/76 Blood Pressure 113/61 Blood Pressure 120/63 If elevated: Reviewed - Qtc Review If Elevated: Reviewed (QTc 470) - IV to PO Switch IV Medications: Reviewed - Home Meds Home Med List reviewed: Reviewed (Patient's own Trelegy is ordered -- asked nursing to check with patient about bringing in, if not then will have MD order formulary inhalers which would be symbicort plus spiriva or incruse) - Current meds Current Medication Order Review: Reviewed
--- NOTE | 2020-01-01 12:50 | INITIAL_ITS ---
- If Service Date Differs Date of service: 01/01/20 Time of Service: 14:33 Care Management Initial Assess REASON FOR HOSPITALIZATION:: Weakness PAST MEDICAL HISTORY/PAST SURGICAL HISTORY:: History of E. Coli septicemia, KIM, open carpal tunnel release, ACL repair PREVIOUS FUNCTIONAL STATUS/SOCIAL/FAMILY SUPPORTS:: Blair resides in [place], [place] with his , Elena. The couple recently returned to [place] from [place] in the last few days. Blair is independent at baseline in the community. CURRENT FUNCTIONAL STATUS:: Blair is on CV-19 precautions awaiting results of Covid screening and period of isolation as he returned from [place] within the last few days. ADVANCE DIRECTIVES:: None on file at [facility] Has patient been provided with information about the portal?: Yes Did the patient sign up for the portal?: Yes (Previously) CODE STATUS:: Full Code INSURANCE COVERAGE / FINANCIAL ISSUES:: MCR Replacement: [facility] CURRENT HOME/COMMUNITY SERVICES/EQUIPMENT:: No current services or equipment. PRIMARY CARE PHYSICIAN:: Mat Mix MD POTENTIAL DISCHARGE NEEDS:: Repeat CV-19 testing, evaluation of further needs, PCP follow up. PATIENT/FAMILY EDUCATION NEEDS:: Review of discharge instructions, discuss Ask Me Three. ANTICIPATED BARRIERS TO DISCHARGE:: None identified. TRANSPORTATION:: Via private vehicle with family. PLAN:: Blair continues to be closely monitored and treated in the CV-19 isolation area. Anticipate he will require re-testing on day #7, per ID. CM continues to follow.
[2020-01-01 15:50] LABS: HCT 26.5 % (40.0-50.0); HGB 8.6 g/dL (13.5-17.5)
[2020-01-01 15:57] LABS: Magnesium 1.4 mg/dL (1.8-2.4); Potassium 3.4 mmol/L (3.5-5.1)
[2020-01-01] MEDS: MAGNESIUM SULFATE 1 GM/100 ML BAG IVPB (18:20)
[2020-01-01] MEDS: Atorvastatin 20 MG TAB PO (20:55)
[2020-01-01] MEDS: Budesonide/Formoterol 160/4.5 6 GM 60 PUFF INH IH (21:02)
[2020-01-01] MEDS: cefTRIAXone 2 GM/50 ML BAG 100 GM (21:15)
[2020-01-02] MEDS: POTASSIUM CHLORIDE/0.9% NACL 1,000 ML 100 MEQ IV (01:05)
[2020-01-02 02:00] VITALS: BP 130/64; PULSE 88; RESP 22; TEMP 36.2; O2SAT 92
[2020-01-02 06:41] LABS: HCT 26.2 % (40.0-50.0); HGB 8.1 g/dL (13.5-17.5); Mean Corp. HGB Concentration 30.9 g/dL (32.0-36.0); Mean Corpuscular Hemoglobin 30.1 pg (27.0-33.0); Mean Corpuscular Volume 97.4 fL (80-95); Mean Platelet Volume 8.4 fL (8.0-11.0); Platelet Count 412 x1000/uL (130-400); RBC 2.69 m/cumm (4.50-6.00); RBC Distribution Width 17.2 % (11.8-14.1); White Blood Cell Count 10.23 k/cumm (4.4-10.8)
[2020-01-02 06:45] LABS: Anion Gap 4.7 mmol/L (3-11); BUN 5 mg/dL (7-18); CO2 29.3 mmol/L (21.0-32.0); Calcium 7.9 mg/dL (8.5-10.1); Chloride 99 mmol/L (98-107); Glucose 106 mg/dL (74-106); Magnesium 1.3 mg/dL (1.8-2.4); Potassium 3.6 mmol/L (3.5-5.1); Sodium 133 mmol/L (136-145)
[2020-01-02] MEDS: Budesonide/Formoterol 160/4.5 6 GM 60 PUFF INH IH (07:53)
[2020-01-02 07:54] VITALS: O2SAT 95; O2SAT 99
[2020-01-02] MEDS: Umeclidinium 7 CAP INHALER 1 CAP IH (07:54)
[2020-01-02] MEDS: MAGNESIUM SULFATE 2 GM/50 ML BAG IVPB (08:04)
[2020-01-02] MEDS: Normal Saline Flush 10 ML SYR IVP (08:04)
[2020-01-02] MEDS: dilTIAZem CD 120 MG CAPCR 240 MG PO (08:06)
[2020-01-02] MEDS: Lansoprazole 30 MG CAPCR PO (08:07)
[2020-01-02] MEDS: Tamsulosin 0.4 MG CAPCR PO (08:07)
[2020-01-02] MEDS: Losartan 25 MG TAB PO (08:07)
[2020-01-02] MEDS: Sertraline 50 MG TAB 100 MG PO (08:07)
[2020-01-02] MEDS: Aspirin E.C. 81 MG TABEC PO (08:07)
[2020-01-02] MEDS: Oxybutynin-CR 5 MG TABCR PO (08:07)
[2020-01-02 08:46] VITALS: BP 143/80; PULSE 86; RESP 18; TEMP 36.7; O2SAT 95
[2020-01-02 10:13] LABS: Iron 17 ug/dL (65-175); Total Iron Binding Capacity 145 ug/dL (250-450); Transferrin Sat 12 % (20-55)
--- NOTE | 2020-01-02 10:28 | IN_ITS ---
Date of service: 01/02/20 Time of Service: 09:55 PT Notes Visit Reasons: Weakness Inpatient Physical Therapy Evaluation Date: 01/02/20 Referring Doctor: Dr. Barnes PT Orders: PT CONSULT: deconditioned/chronically ill. Multi-level dwelling Precautions: COVID-19 test pending Patient Profile/Admitting Diagnosis: Patient admitted from ED for management of hypokalemia in the presence of lung cancer (last chemo 12/19/19) and recent hosp ital admission in [place] for sepsis. Previous COVID-19 testing performed in NH was (-), per patient report. PMHX: lung CA; GERD, COPD; diverticulosis; Legionnaires disease, 1997; spinal stenosis; hyperlipidemia; hydrocele; anxiety Social History/Home Situation: Patient lives with his , and reports that they divide their time between [place] and [place]. During summer months, they reside in a camper with multiple steps inside. There are 3 LAURE[address] onto a deck, with bilat rails. Equipment Owned/DME: none Subjective: Patient reports feeling fatigued and short of breath. Admits that he actually feels better since his admission here at [facility], and that he's had shortness of breath and fatigue chronically. He relates this to his COPD and his chemo treatments. He plans to return home tomorrow, stating the he is nervous about going home too soon. Denies concerns regarding stair management or mobility. Denies h/o falls within the past year. Objective: General Observation: Resting in bed with IV in LUE at initiation of session. Mental Status: A&Ox3 Pain: denies ROM: Right Upper Extremity: WFL Left Upper Extremity: WFL Right Lower Extremity: WFL Left Lower Extremity: WFL Strength: Right Upper Extremity: Shoulder flexion 3/5 or greater. Biceps 3/5 or greater. Left Upper Extremity: Shoulder flexion 3/5 or greater. Biceps 3/5 or greater. Right Lower Extremity: Hip flexion 4/5. Quads 4+/5. Ankle DF 5/5 Left Lower Extremity: Hip flexion 4/5. Quads 4+/5. Ankle DF 5/5 Bed Mobility/Transfers: supine-sit: independent with HOB at 20 degrees sit->supine: independent sit->stand: independent stand->sit: independent Gait: Patient ambulates 25' with supervision only, unilateral UE support to IV pole. He reports GR, and oxygen saturation shows 83%, which rapidly returns to 94% with seated rest. Balance: Static Sitting: Normal Dynamic Sitting: normal Static Standing: good Dynamic Standing: good Special Tests: 4-Position Balance Screen: 09/30, with patient demonstrating increased sway with tandem stance. He is able to maintain position x 10 seconds, but unable to progress to single leg stance. Mobility Limitations Standardized Measure [facility] AM-PAC 6 clicks Basic Mobility Inpatient Short Form: Raw Score: 24% CMS Score: 0% deficit Informed Consent/Education: Patient instructed in purpose of PT consult and plan of care. Treatment: Patient was instructed in seated exercises to be performed hourly at edge of bed. Discussed concerns regarding return home, and encouraged patient to take his time with transfers and allow for rest periods to prevent desaturation. Assessment: Patient is a 69 year old male referred to physical therapy services for safety evaluation for potential discharge. Patient presents with deconditioning related to acute and chronic medical issues, as demonstrated by the following impairment level findings: 1. oxygen desaturation with ambulation 2. LE weakness Impairments are contributing to the following functional limitations: 1. decreased activity tolerance 2. GR with ambulation Patient is assessed as a Moderate 10298 complexity based on the following: History: 69 year old male with underlying lung CA and COPD, presenting with deconditioning and anxiety about hospital discharge. He demonstrates good safety and mobility, despite his GR and oxygen desaturation, which I suspect is chronic. He is appropriate for discharge home once medically stable and is in agreement with this plan. Examination: functional limitations as noted above Presentation: evolving Decision Making: moderate complexity Plan of Care/Treatment Plan: No further PT indicated in acute care setting. Patient demonstrates effective safety and mobility to allow for safe return home once medically stable. DISCHARGE RECOMMENDATIONS: home, without anticipated equipment needs TREATMENT CODE/TIME: 9:55-10:30 ([id number]) Michelle Moran, PT, DPT [facility]
[2020-01-02 11:09] LABS: Vitamin B12 1865 pg/mL (193-986)
--- NOTE | 2020-01-02 11:17 | W.PM.PROGNOT ---
Date of Service Date of service: 01/02/20 Time of Service: 10:45 Assessment and Plan Assessment and plan (1) Hypokalemia: Status: Acute Assessment and plan: Potassium is normalized with supplementation. Stop IV fluids with potassium and continue to monitor potassium level. Cause for his hypokalemia not clear to me as he is not on any medications that typically cause hypokalemia. Perhaps related to recent chemotherapy? (2) Hypomagnesemia: Status: Acute Assessment and plan: Further history makes this sound like this is a chronic problem. Continue magnesium IV bolus and likely discharged on magnesium supplement. (3) Anemia: Status: Chronic Assessment and plan: Iron levels are low, B12 level high. Will place on oral iron supplement. Stool was heme-negative on digital exam in the emergency room. (4) Weakness: Status: Acute Assessment and plan: He remains anxious that his strength is not sufficient for him to be safely independent with transfers and ambulation at home. Lives in a camper here in the summer with multiple levels. We will get PT involved. (5) Small cell carcinoma of lung: Status: Acute Assessment and plan: No pain complaints, no nausea. No unusual shortness of breath. States that his sense of taste and smell are improving following completion of his most recent round of chemotherapy. Treatment plan yet to be defined with appointment locally in the works but not yet completed. (6) GERD (gastroesophageal reflux disease): Status: Chronic Assessment and plan: Symptoms controlled with chronic PPI, no changes planned. (7) Essential hypertension: Status: Chronic Assessment and plan: Blood pressure acceptable on his outpatient medications, no changes indicated at this time. (8) Chronic obstructive lung disease: Status: Chronic Assessment and plan: Subjectively feels back to his baseline with regard to breathing. Known to have hypoxemia when he is sleeping but not during the daytime. Unlikely he will qualify for home oxygen and it probably is not indicated. Continue his home trielegy inhaler. (9) Obstructive sleep apnea: Status: Chronic Assessment and plan: Reports he was diagnosed with sleep apnea years ago but never tolerated CPAP. At this point is interested in trying it again. He will need to have sleep study set up as an outpatient as it has been many years since his original study and diagnosis made. He voiced plans to use a friend's CPAP unit, discouraged to do so given uncertainty of the settings and hygiene concerns. (10) History of E. coli septicemia: Status: Acute Assessment and plan: Per report from patient, E. coli bacteremia presumably due to diverticulitis. Completes ceftriaxone per [place] discharge plans verbally reported by patient, today. We will have the PICC line pulled tomorrow prior to plan to discharge home. (11) Person under investigation for COVID-19: Status: Acute Assessment and plan: No symptoms clearly indicating active infection. Chronic COPD with chronic cough does not seem to be different from his baseline by his report. Not more short of breath. Has not been febrile. Loss of smell and taste probably from recent chemo. This getting better spontaneously. His reports she received a call this morning that he had a negative COVID test and I am not sure if this is from [place]. Still awaiting the results obtained here on admission and a repeat result today. If all negative he can discontinue self quarantine. Subjective Subjective Interval history since last seen: Still feeling a bit weak and concerned about going home prematurely. He has had no dysrhythmias on telemetry. No fevers. Blood pressures have been acceptable on his outpatient medications. His potassium level has normalized. His magnesium is still a little low. His hemoglobin has drifted down slightly. Reports no significant change in his breathing. He does have mild cough with some clear phlegm. No dysuria. No abdominal pain. No diarrhea. Does not get lightheaded when he sits up but still feels generally weak. When he is in [place] he lives in a camper that has 3 steps to get into and has to climb another few steps to go from the main living area to the bathroom. Exam Narrative Exam Narrative: No acute emotional or physical distress. Speaks in full sentences. Afebrile. Blood pressure this morning 143/80 SaO2 on room air 95%. Sclera clear. Cannot see neck veins because of his neck size. His lungs have distant breath sounds with some coarse expiratory wheezing in all lung armendariz, no crackles or rub. Regular heart rhythm no S3-S4 or murmur. Abdomen obese soft no tenderness to palpation. Sits up with effort but can do so without assistance. I did not observe him walk. Objective Objective Clinical Data: Abnormal lab results 01/01/20 01/01/20 01/02/20 Range/Units 15:44 15:44 06:20 RBC (4.50-6.00) m/cumm Hgb 8.6 L (13.5-17.5) g/dL Hct 26.5 L (40.0-50.0) % MCV (80-95) fL MCHC (32.0-36.0) g/dL RDW (11.8-14.1) % Plt Count (130-400) x1000/uL Sodium 133 L (136-145) mmol/L Potassium 3.4 L (3.5-5.1) mmol/L BUN 5 L (7-18) mg/dL Calcium 7.9 L (8.5-10.1) mg/dL Magnesium 1.4 L 1.3 L (1.8-2.4) mg/dL Iron (65-175) ug/dL TIBC (250-450) ug/dL Transferrin % Sat (20-55) % Vitamin B12 (193-986) pg/mL 01/02/20 01/02/20 01/02/20 Range/Units : 06: 06:20 RBC 2.69 L (4.50-6.00) m/cumm Hgb 8.1 L (13.5-17.5) g/dL Hct 26.2 L (40.0-50.0) % MCV 97.4 H (80-95) fL MCHC 30.9 L (32.0-36.0) g/dL RDW 17.2 H (11.8-14.1) % Plt Count 412 H (130-400) x1000/uL Sodium (136-145) mmol/L Potassium (3.5-5.1) mmol/L BUN (7-18) mg/dL Calcium (8.5-10.1) mg/dL Magnesium (1.8-2.4) mg/dL Iron 17 L (65-175) ug/dL TIBC 145 L (250-450) ug/dL Transferrin % Sat 12 L (20-55) % Vitamin B12 1865 H (193-986) pg/mL Vital Signs Temperature 36.7 C 01/02/20 08:46 Temperature Source Tympanic 01/02/20 08:46 Pulse 86 01/02/20 08:46 Pulse Rhythm Regular 01/02/20 08:49 Pulse 94 H 12/31/19 20:01 Respiratory Rate 18 01/02/20 08:46 Respiratory Effort 01/02/20 08:49 Respiratory Depth Normal 01/02/20 08:49 Respiratory Pattern Normal 01/02/20 08:49 Blood Pressure 143/80 H 01/02/20 08:46 Blood Pressure Mean 62 12/31/19 20:01 Blood Pressure Position Supine 12/31/19 15:28 Pulse Oximetry 95 01/02/20 08:46 Oxygen Delivery Method Room Air 01/02/20 08:46 Oxygen Flow Rate 0 01/02/20 08:46 Pain Level 0 01/02/20 08:46 Comment 01/01/20 15:32 Intake & Output 01/01/20 01/01/20 01/02/20 11:59 23:59 11:59 Intake Total 2394 / 4227.333 1833.333 / 4227.333 1570 / 1570 Output Total 900 / 1100 200 / 1100 1200 / 1200 Balance 1494 / 3127.333 1633.333 / 3127.333 370 / 370 Weight 114.8 kg Intake: IV 999 / 1982.333 983.333 / 5541.983 6779 / 1020 Oral 690 / 1540 850 / 1540 550 / 550 Blood Product 560 / 560 Rbc Leuko Reduced Unit 280 / 280 [id number] Rbc Leuko Reduced Unit 280 / 280 [id number] Other 144 / 144 Rbc Leuko Reduced Unit 100 / 100 [id number] Rbc Leuko Reduced Unit 44 / 44 [id number] Output: Urine 900 / 1100 200 / 1100 1200 / 1200 Other: Urine Color Yellow Yellow Yellow Urine Appearance Clear Clear Clear Urine Odor None None Comment Pt was using urinal and commode, and knocked the commode over spilling a large amt of unmeasurable urine Stool Occult Blood Negative Stool Size Small Small Small Stool Characteristics Liquid Soft Soft Brown Brown Brown Voiding Methods Urinal Urinal Urinal Laboratory Results WBC 10.23 k/cumm (4.4-10.8) 01/02/20 06:20 RBC 2.69 m/cumm (4.50-6.00) L 01/02/20 06:20 Hgb 8.1 g/dL (13.5-17.5) L 01/02/20 06:20 Hct 26.2 % (40.0-50.0) L 01/02/20 06:20 MCV 97.4 fL (80-95) H 01/02/20 06:20 MCH 30.1 pg (27.0-33.0) 01/02/20 06:20 MCHC 30.9 g/dL (32.0-36.0) L 01/02/20 06:20 RDW 17.2 % (11.8-14.1) H 01/02/20 06:20 Plt Count 412 x1000/uL (130-400) H 01/02/20 06:20 MPV 8.4 fL (8.0-11.0) 01/02/20 06:20 Immature Gran % Cancelled 12/31/19 17:59 Neutrophils % Cancelled 12/31/19 17:59 Band Neutrophils % Cancelled 12/31/19 17:59 Lymphocytes % Cancelled 12/31/19 17:59 Atypical Lymphs % Cancelled 12/31/19 17:59 Monocytes % Cancelled 12/31/19 17:59 Eosinophils % Cancelled 12/31/19 17:59 Basophils % Cancelled 12/31/19 17:59 Metamyelocytes % Cancelled 12/31/19 17:59 Myelocytes % Cancelled 12/31/19 17:59 Promyelocytes % Cancelled 12/31/19 17:59 Absolute Neutrophils Cancelled 12/31/19 17:59 Absolute Lymphocytes Cancelled 12/31/19 17:59 Absolute Monocytes Cancelled 12/31/19 17:59 Absolute Eosinophils Cancelled 12/31/19 17:59 Absolute Basophils Cancelled 12/31/19 17:59 Nucleated RBCs Cancelled 12/31/19 17:59 Differential Comment Cancelled 12/31/19 17:59 Other Cell Type Cancelled 12/31/19 17:59 RBC Morphology Cancelled 12/31/19 17:59 Polychromasia Cancelled 12/31/19 17:59 Hypochromasia Cancelled 12/31/19 17:59 Poikilocytosis Cancelled 12/31/19 17:59 Basophilic Stippling Cancelled 12/31/19 17:59 Anisocytosis Cancelled 12/31/19 17:59 Microcytosis Cancelled 12/31/19 17:59 Macrocytosis Cancelled 12/31/19 17:59 Spherocytes Cancelled 12/31/19 17:59 Target Cells Cancelled 12/31/19 17:59 Tear Drop Cells Cancelled 12/31/19 17:59 Ovalocytes Cancelled 12/31/19 17:59 Stomatocytes Cancelled 12/31/19 17:59 [place]redia[place] Bodies Cancelled 12/31/19 17:59 Oscar Cells Cancelled 12/31/19 17:59 Acanthocytes (Spur) Cancelled 12/31/19 17:59 Schistocytes Cancelled 12/31/19 17:59 Sodium 133 mmol/L (136-145) L 01/02/20 06:20 Potassium 3.6 mmol/L (3.5-5.1) 01/02/20 06:20 Chloride 99 mmol/L (98-107) 01/02/20 06:20 Carbon Dioxide 29.3 mmol/L (21.0-32.0) 01/02/20 06:20 Anion Gap 4.7 mmol/L (3-11) 01/02/20 06:20 BUN 5 mg/dL (7-18) L 01/02/20 06:20 Creatinine 0.70 mg/dL (0.70-1.30) 01/02/20 06:20 Estimated GFR/1.73 m2 >= 60.00 (mL/min/1.73m2) 01/02/20 06:20 Glucose 106 mg/dL (74-106) 01/02/20 06:20 Calcium 7.9 mg/dL (8.5-10.1) L 01/02/20 06:20 Magnesium 1.3 mg/dL (1.8-2.4) L 01/02/20 06:20 Iron 17 ug/dL (65-175) L 01/02/20 06:20 TIBC 145 ug/dL (250-450) L 01/02/20 06:20 Transferrin % Sat 12 % (20-55) L 01/02/20 06:20 Total Bilirubin Cancelled 12/31/19 17:59 AST Cancelled 12/31/19 17:59 ALT Cancelled 12/31/19 17:59 Alkaline Phosphatase Cancelled 12/31/19 17:59 Troponin I Cancelled 12/31/19 20:59 Total Protein Cancelled 12/31/19 17:59 Albumin Cancelled 12/31/19 17:59 Vitamin B12 1865 pg/mL (193-986) H 01/02/20 06:20 COVID-19 PCR Cancelled 12/31/19 19:48 Nasopharyn COVID-19 PCR Cancelled 12/31/19 19:48 Ref Test Perform Site Cancelled 12/31/19 19:48 Patient ABO/Rh O Positive 12/31/19 18:20 Antibody Screen Negative 12/31/19 18:20 Crossmatch See Detail 12/31/19 18:20
[2020-01-02] MEDS: Ferrous Gluconate 324 MG TAB PO ×2 (12:14→20:54)
--- NOTE | 2020-01-02 13:52 | PDOC.CMPRO ---
Care Management Progress Note S/O: Blair remains in the Covid Isolation area pending test results. CM spoke with his , Elena who reported Blair had been on IV ABX for ten days, and today would have been his tenth day for a blood infection. She reported managing the IV ABX herself, and using [employer] out of [place], [place]. Elena shared that she had been in close contact with Dr. Mix of [facility] and due to Blair's four previous Covid negative results, Elena's own testing was not pursued. Per MD, Blair remains weak, and will likely remain at [facility] overnight and return home as soon as tomorrow. CM continues to follow. A: 69 year old male admitted to [facility] 01/01/20 for weakness, anemia, hypo P: Blair continues to be closely monitored and treated in the CV-19 isolation area. He had re-testing day #7, per [facility] ID recommendation. Anticipate he will return home as soon as tomorrow, he will have a PT consult to determine discharge recommendations. Elena will transport him home via private vehicle.
[2020-01-02 17:05] VITALS: BP 135/74; PULSE 81; RESP 18; TEMP 36.9; O2SAT 97
[2020-01-02] MEDS: Atorvastatin 20 MG TAB PO (20:53)
[2020-01-02] MEDS: cefTRIAXone 2 GM/50 ML BAG IVPB (20:54)
[2020-01-02 22:01] LABS: COVID-19 RT-PCR UVMMC Result Negative (Negative)
[2020-01-03] VITALS (7 sets, daily range): BP systolic 119–148; BP diastolic 70–77; PULSE 78–99; RESP 17–20; TEMP 36.2–37.5; O2SAT 85–96
[2020-01-03 07:16] LABS: HCT 27.5 % (40.0-50.0); HGB 8.8 g/dL (13.5-17.5); Mean Corpuscular Hemoglobin 31.2 pg (27.0-33.0); Mean Corpuscular Volume 97.5 fL (80-95); Mean Platelet Volume 8.7 fL (8.0-11.0); Platelet Count 426 x1000/uL (130-400); RBC 2.82 m/cumm (4.50-6.00); RBC Distribution Width 17.1 % (11.8-14.1)
[2020-01-03 07:25] LABS: Anion Gap 8.7 mmol/L (3-11); BUN 4 mg/dL (7-18); CO2 30.3 mmol/L (21.0-32.0); Calcium 8.3 mg/dL (8.5-10.1); Chloride 97 mmol/L (98-107); Glucose 100 mg/dL (74-106); Potassium 3.4 mmol/L (3.5-5.1); Sodium 136 mmol/L (136-145)
[2020-01-03 07:41] LABS: Magnesium 1.2 mg/dL (1.8-2.4)
[2020-01-03] MEDS: Ferrous Gluconate 324 MG TAB PO ×2 (08:01→20:13)
[2020-01-03] MEDS: Aspirin E.C. 81 MG TABEC PO (08:01)
[2020-01-03] MEDS: Oxybutynin-CR 5 MG TABCR PO (08:01)
[2020-01-03] MEDS: Tamsulosin 0.4 MG CAPCR PO (08:02)
[2020-01-03] MEDS: dilTIAZem CD 120 MG CAPCR 240 MG PO (08:02)
[2020-01-03] MEDS: Losartan 25 MG TAB PO (08:02)
[2020-01-03] MEDS: Sertraline 50 MG TAB 100 MG PO (08:02)
[2020-01-03] MEDS: Magnesium Chloride 64 MG TABCR PO ×3 (08:35→20:29)
[2020-01-03] MEDS: Potassium Chloride 20 MEQ TABCR 40 MEQ PO ×2 (08:35→13:47)
[2020-01-03] MEDS: MAGNESIUM SULFATE 4 GM/100 ML BAG IVPB (08:36)
--- NOTE | 2020-01-03 09:36 | PDOC.CMPRO ---
- If Service Date Differs Date of service: 01/03/20 Time of Service: 09:36 Care Management Progress Note S/O: Blair was sitting up in a chair when CM came to see him. He was pleasant and friendly and readily engaged in conversation. Blair discussed his recent hospitalizations both in [place] and [place] and the fact that he has had 7 Covid tests to date. He expressed that he was not fond of them, but understands the necessity. Blair shared that his course of IV antibiotics should be completed today and that he hopes to be able to go home soon. He states he feels much better than when he was admitted but feels that he will do better once he gets home. He is not anxious to day discharge however, if it is necessary for him to stay. Alfredo asked CM if any snacks were available and CM provided him with Popsicles and luis enrique crackers and peanut butter after verifying his diet order with nursing. A: 69 year old male admitted to [facility] 01/01/20 for weakness, anemia, hypo P: Blair return home as soon as tomorrow, he will have a PT consult to determine discharge recommendations. Elena will transport him home via private vehicle. CM will continue to provide support to patient, family and discharge planning concerns.
--- NOTE | 2020-01-03 10:41 | PGE_ITS ---
Date of Service Date of service: 01/03/20 Time of Service: 10:42 Assessment and Plan Assessment and plan (1) Hypokalemia: Start date: 01/03/20 Start time: 10:57 Status: Acute Assessment and plan: Potassium 3.4, will supplement with PO potassium. Denies Diarrhea, n/v will keep overnight and monitor. (2) Hypomagnesemia: Start date: 01/03/20 Start time: 10:57 Status: Acute Assessment and plan: Further history makes this sound like this is a chronic problem. Mag 1.2. Placed on teley, mag IV and PO. Will d/c home with PO supplementation, will keep overnight and recheck magnesium level in am (3) Anemia: Start date: 01/03/20 Start time: 10:58 Status: Chronic Assessment and plan: Iron levels are low, B12 level high. Will place on oral iron supplement. Stool was heme-negative on digital exam in the emergency room. (4) Weakness: Start date: 01/03/20 Start time: 10:59 Status: Acute Assessment and plan: Feels stable when ambulating. Continue working with PT. Home without anticipated equipment needs per PT> (5) Small cell carcinoma of lung: Start date: 01/03/20 Start time: 11:05 Status: Acute Assessment and plan: No pain complaints, no nausea. No unusual shortness of breath. States that his sense of taste and smell are improving following completion of his most recent round of chemotherapy. Treatment plan yet to be defined with appointment locally in the works but not yet completed. (6) GERD (gastroesophageal reflux disease): Start date: 01/03/20 Start time: 11:05 Status: Chronic Assessment and plan: Symptoms controlled with chronic PPI, no changes planned. Qualifiers: Esophagitis presence: esophagitis presence not specified Qualified Code(s): K21.9 - Gastro-esophageal reflux disease without esophagitis (7) Essential hypertension: Start date: 01/03/20 Start time: 11:06 Status: Chronic Assessment and plan: Blood pressure acceptable on his outpatient medications, no changes indicated at this time. (8) Chronic obstructive lung disease: Start date: 01/03/20 Start time: 11:07 Status: Chronic Assessment and plan: Subjectively feels back to his baseline with regard to breathing. Known to have hypoxemia when he is sleeping but not during the daytime. Unlikely he will qualify for home oxygen and it probably is not indicated. Continue his home trielegy inhaler. (9) Obstructive sleep apnea: Start date: 01/03/20 Start time: 11:08 Status: Chronic Assessment and plan: Reports he was diagnosed with sleep apnea years ago but never tolerated CPAP. At this point is interested in trying it again. He will need to have sleep study set up as an outpatient as it has been many years since his original study and diagnosis made. He voiced plans to use a friend's CPAP unit, discouraged to do so given uncertainty of the settings and hygiene concerns. (10) History of E. coli septicemia: Start date: 01/03/20 Start time: 11:09 Status: Acute Assessment and plan: Per report from patient, E. coli bacteremia presumably due to diverticulitis. Completes ceftriaxone per [place] discharge plans verbally reported by patient on 01/02/2020. We will have the PICC line pulled prior to plan to discharge home. (11) Person under investigation for COVID-19: Start date: 01/03/20 Start time: 11:09 Status: Ruled-out Assessment and plan: Negative Subjective Subjective Patient reports: other Interval history since last seen: Doing well. SOB with ambulation to BR, which is not a new finding, patient states COPD. Wants to start using his CPAP, has not had PFT in approx. 5 years. He states he is voiding with difficulty have soft BM, tolerating diet, minimal pain. Possible discharge in am. Exam Narrative Exam Narrative: No acute emotional or physical distress. Speaks in full sentences. Afebrile. Sclera clear. Cannot see neck veins because of his neck size. His lungs have distant breath sounds with some coarse expiratory wheezing in all lung armendariz, no crackles or rub. Regular heart rhythm no S3-S4 or murmur. Abdomen obese soft no tenderness to palpation. Sits up with effort but can do so without assistance. I did not observe him walk. Objective Objective Clinical Data: Abnormal lab results 01/02/20 01/03/20 01/03/20 Range/Units :16 01: 06: RBC (4.50-6.00) m/cumm Hgb (13.5-17.5) g/dL Hct (40.0-50.0) % MCV (80-95) fL RDW (11.8-14.1) % Plt Count (130-400) x1000/uL Potassium 3.4 L (3.5-5.1) mmol/L Chloride 97 L (98-107) mmol/L BUN 4 L (7-18) mg/dL Calcium 8.3 L (8.5-10.1) mg/dL Magnesium 1.2 L (1.8-2.4) mg/dL Vitamin B12 1865 H (193-986) pg/mL 01/03/20 Range/Units 06: RBC 2.82 L (4.50-6.00) m/cumm Hgb 8.8 L (13.5-17.5) g/dL Hct 27.5 L (40.0-50.0) % MCV 97.5 H (80-95) fL RDW 17.1 H (11.8-14.1) % Plt Count 426 H (130-400) x1000/uL Potassium (3.5-5.1) mmol/L Chloride (98-107) mmol/L BUN (7-18) mg/dL Calcium (8.5-10.1) mg/dL Magnesium (1.8-2.4) mg/dL Vitamin B12 (193-986) pg/mL Vital Signs Temperature 36.8 C 01/03/20 07:40 Temperature Source Tympanic 01/03/20 07:40 Pulse 83 01/03/20 07:40 Pulse Rhythm Regular 01/03/20 08:05 Pulse 94 H 12/31/19 20:01 Respiratory Rate 17 01/03/20 07:40 Respiratory Effort 01/03/20 08:05 Respiratory Depth Normal 01/03/20 08:05 Respiratory Pattern Normal 01/03/20 08:05 Blood Pressure 148/76 H 01/03/20 07:40 Blood Pressure Mean 62 12/31/19 20:01 Blood Pressure Position Supine 12/31/19 15:28 Pulse Oximetry 90 L 01/03/20 08:00 Oxygen Delivery Method Room Air 01/03/20 08:00 Oxygen Flow Rate 0 01/03/20 08:00 Pain Level 0 01/03/20 07:40 Comment 01/01/20 15:32 Intake & Output 01/02/20 01/02/20 01/03/20 11:59 23:59 11:59 Intake Total 1570 / 3070 1500 / 3070 Output Total 1200 / 2200 1000 / 2200 750 / 750 Balance 370 / 870 500 / 870 -750 / -750 Weight 113 kg Intake: IV 1020 / 2040 1020 / 2040 Oral 550 / 1030 480 / 1030 Output: Urine 1200 / 2200 1000 / 2200 750 / 750 Other: Urine Color Yellow Straw Yellow Urine Appearance Clear Clear Clear Urine Odor None Comment Pt was using urinal and commode, and knocked the commode over spilling a large amt of unmeasurable urine unmeasured, mixed with stool Stool Size Small Small Stool Characteristics Soft Soft Soft Brown Formed Formed Brown Brown Voiding Methods Urinal Toilet Toilet Urinal Urinal Laboratory Results WBC 8.90 k/cumm (4.4-10.8) 01/03/20 06:20 RBC 2.82 m/cumm (4.50-6.00) L 01/03/20 06:20 Hgb 8.8 g/dL (13.5-17.5) L 01/03/20 06:20 Hct 27.5 % (40.0-50.0) L 01/03/20 06:20 MCV 97.5 fL (80-95) H 01/03/20 06:20 MCH 31.2 pg (27.0-33.0) 01/03/20 06:20 MCHC 32.0 g/dL (32.0-36.0) 01/03/20 06:20 RDW 17.1 % (11.8-14.1) H 01/03/20 06:20 Plt Count 426 x1000/uL (130-400) H 01/03/20 06:20 MPV 8.7 fL (8.0-11.0) 01/03/20 06:20 Immature Gran % Cancelled 12/31/19 17:59 Neutrophils % Cancelled 12/31/19 17:59 Band Neutrophils % Cancelled 12/31/19 17:59 Lymphocytes % Cancelled 12/31/19 17:59 Atypical Lymphs % Cancelled 12/31/19 17:59 Monocytes % Cancelled 12/31/19 17:59 Eosinophils % Cancelled 12/31/19 17:59 Basophils % Cancelled 12/31/19 17:59 Metamyelocytes % Cancelled 12/31/19 17:59 Myelocytes % Cancelled 12/31/19 17:59 Promyelocytes % Cancelled 12/31/19 17:59 Absolute Neutrophils Cancelled 12/31/19 17:59 Absolute Lymphocytes Cancelled 12/31/19 17:59 Absolute Monocytes Cancelled 12/31/19 17:59 Absolute Eosinophils Cancelled 12/31/19 17:59 Absolute Basophils Cancelled 12/31/19 17:59 Nucleated RBCs Cancelled 12/31/19 17:59 Differential Comment Cancelled 12/31/19 17:59 Other Cell Type Cancelled 12/31/19 17:59 RBC Morphology Cancelled 12/31/19 17:59 Polychromasia Cancelled 12/31/19 17:59 Hypochromasia Cancelled 12/31/19 17:59 Poikilocytosis Cancelled 12/31/19 17:59 Basophilic Stippling Cancelled 12/31/19 17:59 Anisocytosis Cancelled 12/31/19 17:59 Microcytosis Cancelled 12/31/19 17:59 Macrocytosis Cancelled 12/31/19 17:59 Spherocytes Cancelled 12/31/19 17:59 Target Cells Cancelled 12/31/19 17:59 Tear Drop Cells Cancelled 12/31/19 17:59 Ovalocytes Cancelled 12/31/19 17:59 Stomatocytes Cancelled 12/31/19 17:59 Heredia-[place] Bodies Cancelled 12/31/19 17:59 Maribel Cells Cancelled 12/31/19 17:59 Acanthocytes (Spur) Cancelled 12/31/19 17:59 Schistocytes Cancelled 12/31/19 17:59 Sodium 136 mmol/L (136-145) 01/03/20 06:20 Potassium 3.4 mmol/L (3.5-5.1) L 01/03/20 06:20 Chloride 97 mmol/L (98-107) L 01/03/20 06:20 Carbon Dioxide 30.3 mmol/L (21.0-32.0) 01/03/20 06:20 Anion Gap 8.7 mmol/L (3-11) 01/03/20 06:20 BUN 4 mg/dL (7-18) L 01/03/20 06:20 Creatinine 0.70 mg/dL (0.70-1.30) 01/03/20 06:20 Estimated GFR/1.73 m2 >= 60.00 (mL/min/1.73m2) 01/03/20 06:20 Glucose 100 mg/dL (74-106) 01/03/20 06:20 Calcium 8.3 mg/dL (8.5-10.1) L 01/03/20 06:20 Magnesium 1.2 mg/dL (1.8-2.4) L 01/03/20 06:20 Iron 17 ug/dL (65-175) L 01/02/20 06:20 TIBC 145 ug/dL (250-450) L 01/02/20 06:20 Transferrin % Sat 12 % (20-55) L 01/02/20 06:20 Total Bilirubin Cancelled 12/31/19 17:59 AST Cancelled 12/31/19 17:59 ALT Cancelled 12/31/19 17:59 Alkaline Phosphatase Cancelled 12/31/19 17:59 Troponin I Cancelled 12/31/19 20:59 Total Protein Cancelled 12/31/19 17:59 Albumin Cancelled 12/31/19 17:59 Vitamin B12 1865 pg/mL (193-986) H 01/02/20 06:20 COVID-19 PCR Negative (Negative) 01/02/20 08:15 Nasopharyn COVID-19 PCR Not Applicable 01/02/20 08:15 Ref Test Perform Site [facility] lab 01/02/20 08:15 Patient ABO/Rh O Positive 12/31/19 18:20 Antibody Screen Negative 12/31/19 18:20 Crossmatch See Detail 12/31/19 18:20
[2020-01-03] MEDS: Atorvastatin 20 MG TAB PO (20:29)
[2020-01-03] MEDS: Acetaminophen 325 MG TAB 650 MG PO (20:32)
[2020-01-04 03:35] VITALS: BP 130/73; PULSE 85; RESP 16; TEMP 36.7; O2SAT 85
[2020-01-04 03:45] VITALS: O2SAT 94
[2020-01-04 07:22] VITALS: BP 138/89; PULSE 82; RESP 20; TEMP 36.4; O2SAT 92
[2020-01-04] MEDS: dilTIAZem CD 120 MG CAPCR 240 MG PO (07:36)
[2020-01-04] MEDS: Tamsulosin 0.4 MG CAPCR PO (07:36)
[2020-01-04] MEDS: Ferrous Gluconate 324 MG TAB PO ×2 (07:36→19:24)
[2020-01-04] MEDS: Sertraline 50 MG TAB 100 MG PO (07:36)
[2020-01-04] MEDS: Losartan 25 MG TAB PO (07:36)
[2020-01-04] MEDS: Aspirin E.C. 81 MG TABEC PO (07:37)
[2020-01-04] MEDS: Magnesium Chloride 64 MG TABCR PO ×2 (07:37→09:25)
[2020-01-04] MEDS: Oxybutynin-CR 5 MG TABCR PO (07:37)
[2020-01-04] MEDS: Lansoprazole 30 MG CAPCR PO (07:37)
[2020-01-04 08:03] LABS: Anion Gap 6.5 mmol/L (3-11); BUN 5 mg/dL (7-18); CO2 31.5 mmol/L (21.0-32.0); CREATININE 0.81 mg/dL (0.70-1.30); Calcium 8.9 mg/dL (8.5-10.1); Chloride 99 mmol/L (98-107); Glucose 101 mg/dL (74-106); Potassium 3.7 mmol/L (3.5-5.1); Sodium 137 mmol/L (136-145)
[2020-01-04 08:04] LABS: Magnesium 1.4 mg/dL (1.8-2.4)
[2020-01-04] MEDS: MAGNESIUM SULFATE 4 GM/100 ML BAG IVPB (08:32)
--- NOTE | 2020-01-04 09:03 | PDOC.CMPRO ---
- If Service Date Differs Date of service: 01/04/20 Time of Service: 09:03 Care Management Progress Note S/O: Blair was sitting up in bed when CM came to see him. He was pleasant and friendly and readily engaged in conversation. Blair's magnesium levels remain low despite IV Magnesium replacement. It will be necessary for him to remain hospitalized for at least another day. He states he feels much better than when he was admitted but feels that he will do better once he gets home. He is not anxious to day discharge however, if it is necessary for him to stay. I came here to get better. I am not leaving if I am not ready. Blair again spoke of his many Covid tests, all of which were negative. He also shared information about his cancer, how/when it came to be diagnosed (07/23/19) and what the treatment plan is. He also informed CM that his [id number] was diagnosed with the same kind of cancer (metastatic with a possible primary of lung) at the same time and that he has since . Blair seemed to feel his zeixitg-si-scm gave up, which he asserts, he has no intention of doing. Blair and Elena, his , split their time between [place] and [facility]. living in mobile/camping communities. He stated that he has a daughter (with their families) living on either side of his camper at the campground in [place] and that is why they summer here.Blair was also willing to discuss use of CPAP which has been recommended in the past. He has a plan to get additional information from his [place] providers so that he can possibly get a new machine. A: 69 year old male admitted to [facility] 01/01/20 for weakness, anemia, hypomagnesemia P: Blair will be discharged home as soon as his magnesium levels normalize. He was evaluated by PT who determined that he is safe to go home without additional treatment. Elena will transport him home via private vehicle. CM will continue to provide support to patient, family and discharge planning concerns.
--- NOTE | 2020-01-04 10:19 | PGE_ITS ---
Date of Service Date of service: 01/04/20 Time of Service: 10:19 Assessment and Plan Assessment and plan (1) Hypomagnesemia: Start date: 01/04/20 Start time: 10:23 Status: Acute Assessment and plan: Mag 1.4, teley on, mag IV and PO. Will d/c home with PO supplementation when ready, will likely need weekly labs to monitor magnesium level, will keep overnight and recheck magnesium level in am (2) Hypokalemia: Start date: 01/04/20 Start time: : Status: Acute Assessment and plan: Improved. Potassium 3.7, continue to monitor (3) Anemia: Start date: 01/04/20 Start time: 10:28 Status: Chronic Assessment and plan: Iron levels are low, B12 level high. Will place on oral iron supplement. Stool was heme-negative on digital exam in the emergency room. (4) Weakness: Start date: 01/04/20 Start time: 10:28 Status: Acute Assessment and plan: Improving, Feels stable when ambulating. Continue working with PT. Home without anticipated equipment needs per PT (5) Small cell carcinoma of lung: Start date: 01/04/20 Start time: 10:28 Status: Acute Assessment and plan: No pain complaints, no nausea. No unusual shortness of breath. States that his sense of taste and smell are improving following completion of his most recent round of chemotherapy. Treatment plan yet to be defined with appointment locally in the works but not yet completed. (6) GERD (gastroesophageal reflux disease): Start date: 01/04/20 Start time: 10:28 Status: Chronic Assessment and plan: Symptoms controlled with chronic PPI, no changes planned. Qualifiers: Esophagitis presence: esophagitis presence not specified Qualified Code(s): K21.9 - Gastro-esophageal reflux disease without esophagitis (7) Essential hypertension: Start date: 01/04/20 Start time: 10:28 Status: Chronic Assessment and plan: Blood pressure acceptable on his outpatient medications, no changes indicated at this time. (8) Chronic obstructive lung disease: Start date: 01/04/20 Start time: 10:29 Status: Chronic Assessment and plan: Subjectively feels back to his baseline with regard to breathing. Known to have hypoxemia when he is sleeping but not during the daytime. Will obtain overnight oximetery. Unlikely he will qualify for home oxygen and it probably is not indicated. Continue his home trielegy inhaler. (9) Obstructive sleep apnea: Start date: 01/04/20 Start time: 10:29 Status: Chronic Assessment and plan: Understands he will need sleep study with PFT as an outpatient. Will do overnight oximetery. He is suppose to use CPAP but at this time does not. (10) History of E. coli septicemia: Start date: 01/04/20 Start time: 10:30 Status: Acute Assessment and plan: From E. Coli due to diverticulitis. Ceftriaxone dcd end date verbally reported by patient on 01/02/2020. We will have the PICC line pulled prior to plan to discharge home. (11) Right lower quadrant abdominal pain: Start date: 01/04/20 Start time: 10:31 Status: Acute Assessment and plan: C/o RLQ pain that is sharp radiating down abd to mid abd. Will obtain CT scan and U/A. Tenderness with palpation. Above case discussed with Dr. Gonzalez who is in agreement. Subjective Subjective Patient reports: other Interval history since last seen: Continues to have a low magnesium level. Also c/o RLQ abdominal pain with pain on palpation. Will obtain CT abd with contrast. U/A r/o uti. He is agreeable to staying. He denies CP, SOB, N/V/D. Exam Narrative Exam Narrative: No acute emotional or physical distress. Speaks in full sentences. Afebrile. Sclera clear. Cannot see neck veins because of his neck size. His lungs have distant breath sounds with some coarse rhonchi in RUL, no crackles or rub. Regular heart rhythm no S3-S4 or murmur. Abdomen obese soft with tenderness toRLQ on palpation. Sits up with effort but can do so without assistance. Requiring oxygen at night Objective Objective Clinical Data: Abnormal lab results 01/04/20 01/04/20 Range/Units 06:43 06:43 BUN 5 L (7-18) mg/dL Magnesium 1.4 L (1.8-2.4) mg/dL Vital Signs Temperature 36.4 C L 01/04/20 07:22 Temperature Source Temporal Artery Scan 01/04/20 07:22 Pulse 82 01/04/20 07:22 Pulse Rhythm Regular 06/07/20 07:47 Pulse 94 H 12/31/19 20:01 Respiratory Rate 20 01/04/20 07:22 Respiratory Effort 01/04/20 07:47 Respiratory Depth Normal 01/04/20 07:47 Respiratory Pattern Normal 01/04/20 07:47 Blood Pressure 138/89 01/04/20 07:22 Blood Pressure Mean 62 12/31/19 20:01 Blood Pressure Position Supine 12/31/19 15:28 Pulse Oximetry 92 L 01/04/20 07:22 Oxygen Delivery Method Room Air 01/04/20 07:22 Oxygen Flow Rate 0 01/04/20 07:22 Pain Level 0 01/04/20 07:22 Comment 01/04/20 03:45 Intake & Output 01/03/20 01/03/20 01/04/20 11:59 23:59 11:59 Intake Total 600 / 1100 500 / 1100 Output Total 750 / 750 200 / 200 Balance -150 / 350 500 / 350 -180 / -180 Weight 113 kg Intake: IV Oral 600 / 1080 480 / 1080 Output: Urine 750 / 750 200 / 200 Other: Urine Color Yellow Yellow Urine Appearance Clear Clear Clear Urine Odor None Stool Characteristics Soft Formed Brown Voiding Methods Toilet Toilet Urinal Laboratory Results WBC 8.90 k/cumm (4.4-10.8) 01/03/20 06:20 RBC 2.82 m/cumm (4.50-6.00) L 01/03/20 06:20 Hgb 8.8 g/dL (13.5-17.5) L 01/03/20 06:20 Hct 27.5 % (40.0-50.0) L 01/03/20 06:20 MCV 97.5 fL (80-95) H 01/03/20 06:20 MCH 31.2 pg (27.0-33.0) 01/03/20 06:20 MCHC 32.0 g/dL (32.0-36.0) 01/03/20 06:20 RDW 17.1 % (11.8-14.1) H 01/03/20 06:20 Plt Count 426 x1000/uL (130-400) H 01/03/20 06:20 MPV 8.7 fL (8.0-11.0) 01/03/20 06:20 Immature Gran % Cancelled 12/31/19 17:59 Neutrophils % Cancelled 12/31/19 17:59 Band Neutrophils % Cancelled 12/31/19 17:59 Lymphocytes % Cancelled 12/31/19 17:59 Atypical Lymphs % Cancelled 12/31/19 17:59 Monocytes % Cancelled 12/31/19 17:59 Eosinophils % Cancelled 12/31/19 17:59 Basophils % Cancelled 12/31/19 17:59 Metamyelocytes % Cancelled 12/31/19 17:59 Myelocytes % Cancelled 12/31/19 17:59 Promyelocytes % Cancelled 12/31/19 17:59 Absolute Neutrophils Cancelled 12/31/19 17:59 Absolute Lymphocytes Cancelled 12/31/19 17:59 Absolute Monocytes Cancelled 12/31/19 17:59 Absolute Eosinophils Cancelled 12/31/19 17:59 Absolute Basophils Cancelled 12/31/19 17:59 Nucleated RBCs Cancelled 12/31/19 17:59 Differential Comment Cancelled 12/31/19 17:59 Other Cell Type Cancelled 12/31/19 17:59 RBC Morphology Cancelled 12/31/19 17:59 Polychromasia Cancelled 12/31/19 17:59 Hypochromasia Cancelled 12/31/19 17:59 Poikilocytosis Cancelled 12/31/19 17:59 Basophilic Stippling Cancelled 12/31/19 17:59 Anisocytosis Cancelled 12/31/19 17:59 Microcytosis Cancelled 12/31/19 17:59 Macrocytosis Cancelled 12/31/19 17:59 Spherocytes Cancelled 12/31/19 17:59 Target Cells Cancelled 12/31/19 17:59 Tear Drop Cells Cancelled 12/31/19 17:59 Ovalocytes Cancelled 12/31/19 17:59 Stomatocytes Cancelled 12/31/19 17:59 [place] Bodies Cancelled 12/31/19 17:59 Maribel Cells Cancelled 12/31/19 17:59 Acanthocytes (Spur) Cancelled 12/31/19 17:59 Schistocytes Cancelled 12/31/19 17:59 Sodium 137 mmol/L (136-145) 01/04/20 06:43 Potassium 3.7 mmol/L (3.5-5.1) 01/04/20 06:43 Chloride 99 mmol/L (98-107) 01/04/20 06:43 Carbon Dioxide 31.5 mmol/L (21.0-32.0) 01/04/20 06:43 Anion Gap 6.5 mmol/L (3-11) 01/04/20 06:43 BUN 5 mg/dL (7-18) L 01/04/20 06:43 Creatinine 0.81 mg/dL (0.70-1.30) 01/04/20 06:43 Estimated GFR/1.73 m2 >= 60.00 (mL/min/1.73m2) 01/04/20 06:43 Glucose 101 mg/dL (74-106) 01/04/20 06:43 Calcium 8.9 mg/dL (8.5-10.1) 01/04/20 06:43 Magnesium 1.4 mg/dL (1.8-2.4) L 01/04/20 06:43 Iron 17 ug/dL (65-175) L 01/02/20 06:20 TIBC 145 ug/dL (250-450) L 01/02/20 06:20 Transferrin % Sat 12 % (20-55) L 01/02/20 06:20 Total Bilirubin Cancelled 12/31/19 17:59 AST Cancelled 12/31/19 17:59 ALT Cancelled 12/31/19 17:59 Alkaline Phosphatase Cancelled 12/31/19 17:59 Troponin I Cancelled 12/31/19 20:59 Total Protein Cancelled 12/31/19 17:59 Albumin Cancelled 12/31/19 17:59 Vitamin B12 1865 pg/mL (193-986) H 01/02/20 06:20 COVID-19 PCR Negative (Negative) 01/02/20 08:15 Nasopharyn COVID-19 PCR Not Applicable 01/02/20 08:15 Ref Test Perform Site [facility] lab 01/02/20 08:15 Patient ABO/Rh O Positive 12/31/19 18:20 Antibody Screen Negative 12/31/19 18:20 Crossmatch See Detail 12/31/19 18:20
[2020-01-04 11:20] VITALS: BP 130/74; PULSE 87; RESP 22; TEMP 36.8; O2SAT 90
[2020-01-04] MEDS: Omnipaque 350 MG/ML 100 ML BTL IJ (12:50)
[2020-01-04] MEDS: Normal Saline - Diluent 50 ML VIAL IV (12:59)
[2020-01-04] MEDS: Omnipaque 350 MG/ML 50 ML BTL PO (13:01)
--- NOTE | 2020-01-04 13:03 | DI.CT_ITS ---
EXAM: CT ABDOMEN PELVIS W CLINICAL HISTORY: RLQ pain and tenderness TECHNIQUE: Imaging Protocol: Axial computed tomography images with coronal and sagittal reformatted images were created and reviewed CONTRAST MATERIAL: Intravenous: Omnipaque 350 Contrast volume:100 mL Oral: Yes COMPARISON: CT ABD PELVIS WITH CONTRAST from 03/19/2017 FINDINGS: ABDOMEN: Lung Bases: Emphysematous changes are seen in the lung bases. There is a tiny pericardial effusion. Liver: Diffuse decreased attenuation of the liver consistent with fatty infiltration. No measurable mass. Portal, Superior Mesenteric, and Splenic Veins: Unremarkable. Gallbladder and Biliary Tract: No radiodense calculus or dilation. Pancreas: Normal density, no abnormal calcifications or inflammatory process. Spleen: Normal. Adrenals: Interval development of a 4.5 x 3.4 cm heterogeneous right adrenal mass. The left adrenal gland is unremarkable. Kidneys: Normal size, contour and axis. Mild dilatation of the right renal collecting system to the l evel of the inflammatory process in the pelvis. No obstructing stone is identified. Tiny hypodensit y in the superior pole of the left kidney. It is too small for further characterization but likely r eflects a small cyst. No stones or obstructive uropathy on the left. Abdominal Aorta: Abdominal portion non-dilated. Atherosclerosis. Bowel: No evidence of obstruction. There is diverticulosis of the colon. No evidence of acute appen dicitis. Bowel wall thickening and pericolonic inflammatory changes are seen in the mid to distal si gmoid colon and proximal rectum. Peritoneal Cavity: No ascites. Inflammatory stranding seen in the presacral region. Lymph Nodes: Mildly enlarged lymph nodes in the pelvis. Bones: Degenerative changes are seen in the spine. There is L5 spondylolysis with grade 1 spondyloli sthesis of L5 on S1. Soft Tissues: Unremarkable. PELVIS: Bladder: There is diffuse thickening of the wall of the urinary bladder with surrounding inflammation of the soft tissues. Reproductive Organs: Unremarkable as visualized. Lymph Nodes: Mildly enlarged lymph nodes in the pelvis. Bones: Please see above. IMPRESSION: 1. Bowel wall thickening and pericolonic inflammatory stranding seen in the distal sigmoid colon and rectum suggesting a colitis. This may represent an infectious or inflammatory process. Acute divert iculitis or neoplasm cannot be excluded. 2. Mild dilatation of the right renal collecting system to the level of the inflammatory process in t he pelvis. No obstructing stone is identified. 3. Urinary bladder wall thickening and adjacent inflammatory stranding suspicious for an infectious o r inflammatory cystitis. 4. Interval development of a 4.5 cm right adrenal mass. Follow-up examination with an MRI and/or CT scan is recommended using the adrenal protocol. Metastatic disease cannot be excluded. 5. Emphysematous changes the lung bases. RADIATION DOSE DELIVERED: 1,513.04mGy.cm Total DLP DATA REPOSITORY: All CT scans at this facility are submitted to the National Radiology Data Registry (NRDR) Dose Index Registry (DIR) with the [employer] ([employer]). RADIATION OPTIMIZATION: All CT scans at this facility use at least one of these dose optimization te chniques: automated exposure control; mA and/or kV adjustment per patient size (includes targeted exa ms where dose is matched to clinical indication); or iterative reconstruction.
--- NOTE | 2020-01-04 13:26 | DI.VRAD_ITS ---
PROCEDURE INFORMATION: Exam: CT Abdomen And Pelvis With Contrast Exam date and time: 01/04/2020 12:57 PM Age: 69 years old Clinical indication: Abdominal pain; Localized; Right lower quadrant (rlq); Patient HX: Rlq pain and tenderness. Patient sts has HX of cancer PT unsure of the HX of CA. TECHNIQUE: Imaging protocol: Computed tomography of the abdomen and pelvis with intravenous contrast. Radiation optimization: All CT scans at this facility use at least one of these dose optimization techniques: automated exposure control; mA and/or kV adjustment per patient size (includes targeted exams where dose is matched to clinical indication); or iterative reconstruction. Contrast material: OMNIPAQUE 350; Contrast volume: 100 ml; Contrast route: IV; COMPARISON: CT ABD PELVIS WITH CONTRAST 03/19/2017 9:18 AM FINDINGS: Chronic lung disease at the lung bases with emphysematous change. Inflammatory process involving the mid to distal sigmoid colon with marked surrounding fatty inflammation. This suggests a somewhat focal colitis although the exact form is uncertain. Dilatation of the right intrarenal collecting system and ureter to the level of the pelvic inflammatory process. No evidence of bowel obstruction. No significant free fluid. IMPRESSION: Marked inflammatory process in the pelvis which appears to be related to some form of colitis resulting also in some obstructive uropathy of the right kidney. Dictated and Authenticated by: Domingo Mathis MD. Ordering:KALEB Jaime MD
[2020-01-04] MEDS: CIPROFLOXACIN 400 MG/200 ML BAG 200 MG IVPB (15:22)
[2020-01-04 15:26] LABS: HCT 28.4 % (40.0-50.0); HGB 9.3 g/dL (13.5-17.5)
[2020-01-04] MEDS: Normal Saline Flush 10 ML SYR IVP ×3 (15:32→19:25)
[2020-01-04 16:51] VITALS: BP 112/65; PULSE 86; RESP 18; TEMP 36.8; O2SAT 90
[2020-01-04] MEDS: metroNIDAZOLE 500 MG/100 ML BAG 100 MG IVPB (17:54)
[2020-01-04 18:58] LABS: Bilirubin Negative (Negative); Blood Trace-intact (Negative); Clarity Clear (Clear); Glucose Negative (Negative); Ketones Negative (Negative); Leukocyte Esterase Negative (Negative); Nitrite Negative (Negative); Urobilinogen 0.2 EU/dL (Up TO 0.2)
[2020-01-04 19:18] LABS: Bacteria Negative HPF (Negative); C & S Indicated? No; Casts Negative LPF (Negative); Crystals Negative HPF (Negative); Epithelial Cells Negative HPF (Negative); Mucus Negative (Negative); Other Cells Negative (Negative)
[2020-01-04] MEDS: Magnesium Chloride 64 MG TABCR 128 MG PO (19:24)
[2020-01-04] MEDS: Atorvastatin 20 MG TAB PO (19:24)
[2020-01-04] MEDS: Pantoprazole 40 MG VIAL IVP (19:25)
[2020-01-04 20:32] VITALS: BP 125/75; PULSE 81; RESP 18; TEMP 36.3; O2SAT 91
[2020-01-04] MEDS: Acetaminophen 325 MG TAB 650 MG PO (21:27)
[2020-01-05] MEDS: metroNIDAZOLE 500 MG/100 ML BAG 100 MG IVPB ×3 (02:03→18:43)
[2020-01-05] MEDS: Normal Saline Flush 10 ML SYR IVP ×3 (02:04→07:28)
[2020-01-05] MEDS: CIPROFLOXACIN 400 MG/200 ML BAG 200 MG IVPB ×2 (04:39→17:08)
[2020-01-05 06:47] LABS: Abs Immature Grans 0.09 k/cumm (0.0-0.09); Absolute Basophil Count 0.02 k/cumm (0.0-0.2); Absolute Eosinophil Count 0.12 k/cumm (0.0-0.7); Absolute Lymphocyte Count 1.26 k/cumm (1.2-3.4); Absolute Monocyte Count 0.98 k/cumm (0.11-0.7); Basophils % 0.3; Eosinophils % 1.6; HGB 8.9 g/dL (13.5-17.5); Immature Grans % 1.2 %; Lymphocytes % 16.9; Mean Corp. HGB Concentration 31.8 g/dL (32.0-36.0); Mean Corpuscular Hemoglobin 30.8 pg (27.0-33.0); Mean Corpuscular Volume 96.9 fL (80-95); Mean Platelet Volume 8.3 fL (8.0-11.0); Monocytes % 13.1; Neutrophils % 66.9; Platelet Count 419 x1000/uL (130-400); RBC 2.89 m/cumm (4.50-6.00); RBC Distribution Width 16.8 % (11.8-14.1); White Blood Cell Count 7.47 k/cumm (4.4-10.8)
[2020-01-05 06:50] LABS: Anion Gap 8.4 mmol/L (3-11); BUN 5 mg/dL (7-18); CO2 29.6 mmol/L (21.0-32.0); Calcium 8.6 mg/dL (8.5-10.1); Chloride 97 mmol/L (98-107); Glucose 118 mg/dL (74-106); Magnesium 1.4 mg/dL (1.8-2.4); Potassium 3.5 mmol/L (3.5-5.1); Sodium 135 mmol/L (136-145)
[2020-01-05 07:20] VITALS: BP 118/78; PULSE 81; RESP 17; TEMP 36.7; O2SAT 91
[2020-01-05] MEDS: Pantoprazole 40 MG VIAL IVP ×2 (07:28→20:29)
[2020-01-05 07:33] VITALS: BP 134/73; PULSE 77; RESP 18; TEMP 36; O2SAT 91
[2020-01-05 07:46] VITALS: O2SAT 96
[2020-01-05] MEDS: MAGNESIUM SULFATE 4 GM/100 ML BAG IVPB (07:57)
[2020-01-05] MEDS: Ferrous Gluconate 324 MG TAB PO (09:09)
[2020-01-05] MEDS: Oxybutynin-CR 5 MG TABCR PO (09:09)
[2020-01-05] MEDS: Tamsulosin 0.4 MG CAPCR PO (09:09)
[2020-01-05] MEDS: Sertraline 50 MG TAB 100 MG PO (09:09)
[2020-01-05] MEDS: dilTIAZem CD 120 MG CAPCR 240 MG PO (09:09)
--- NOTE | 2020-01-05 10:28 | W.SURGCON ---
Date of service: 01/05/20 Time of Service: 10:29 Assessment and Plan Assessment and plan (1) Primary malignant neoplasm of bladder: Status: Chronic (2) Essential hypertension: Status: Chronic (3) Hyperlipidemia: Status: Chronic (4) Chronic obstructive lung disease: Status: Chronic (5) Smoker: Status: Acute (6) Diverticulosis of colon without diverticulitis: Status: Acute (7) GERD (gastroesophageal reflux disease): Status: Chronic Qualifiers: Esophagitis presence: esophagitis presence not specified Qualified Code(s): K21.9 - Gastro-esophageal reflux disease without esophagitis (8) Small cell carcinoma of lung: Status: Acute Assessment and plan: pt was on posterior medial pleural based RUlobe [id number] mass posterior to mediastinum. close to esophagus. 9mm L. node 5.7cm R adrenal mass He was in the [facility] [address]. w/ Carboplatinum adn etoposide and Atezolizumab. I believe he completed 3/4 cycles. His last chemo was 12/18. He was admitted 12/12 in [place] and Dg w/ E coli bactremia originating from his colon. He had a PICC placed and was being treated w/ Rocephin daily. Looking at his CT today- this does appear to becoming worse- and is now extending into his R kidney. and causing a mild hydro. 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 It is difficult to say if this is infectious or some postchemo inflammatory reaction that has b/c a secondary bacterial infection. Either way- would continue to treat w/ abx. cipro and flagyl currently. Clinically he looks better. Currently he has no diarrhea adn no pain and would like to eat. I am unclear if this represent infection or drug reaction. It does not appear that he is worse clinically, although his CT is much worse. We are trying to track down the CE and Bx he had done in August of 2019. Dr. Gonzalez is going to talk to hem-onc and see what there thoughts are- if this still could be drug reaction from the atezolizumab. ALthough he has been off of this for 3 wks. And if steriods we be recommended to treat this. Additionally Sx could do a flex sig and bx to see if this is infectious or inflammatory. -Uro will eval to see if a stent is required. (9) Obstructive sleep apnea: Status: Chronic (10) Colitis: Status: Acute Assessment and plan: MPRESSION: 1. Bowel wall thickening and pericolonic inflammatory stranding seen in the distal sigmoid colon and rectum suggesting a colitis. This may represent an infectious or inflammatory process. Acute diverticulitis or neoplasm cannot be excluded. 2. Mild dilatation of the right renal collecting system to the level of the inflammatory process in the pelvis. No obstructing stone is identified. 3. Urinary bladder wall thickening and adjacent inflammatory stranding suspicious for an infectious or inflammatory cystitis. 4. Interval development of a 4.5 cm right adrenal mass. Follow-up examination with an MRI and/or CT scan is recommended using the adrenal protocol. Metastatic disease cannot be excluded. 5. Emphysematous changes the lung bases. (11) Uropathy, obstructive: Status: Acute (12) Fe deficiency anemia: Status: Acute Assessment and plan: prob multi-factorial. Fe is low prob due to suppression from chemo and chronic dx from acute infection History of Present Illness Narrative: ask to see pt regarding abdominal pain. Pt has a very complex Hx. It sounds like he had been having problems w/ diverticulitis off/on for three months ago and that was per his heme-onc in November of 2019. He had a CE and Bx w/ a Dr. Sanchez in GI somewhere in [place]. He developed E. coli bactremia and was on Rocephin via a PICC line daily. His was giving the ABx at home. He saw his PCP for weekeness and was sent to ED. While he was in out hosp- he developed RLQ pain and repeat CT was done. As I am seeing the pt today- he says he has no pain. He says he is not having diarrhea. no bleeding. He states he is hungry. I cannot find any record of his CE w/ Bx that he had in [facility] hosp. He was Dg w/ small cell lung ca. lg R sided mass near the esoph and diaphragmn. also in the R adrenal gland. He had a PET scan 08/27/19. This showed the 4cm in R lung and 5cm R adrenal mass. it also highlighted in the area of diverticulitis. He did have a CE sometime in August and had a Bx done. I don't have the results of this Bx. He was treated w/ abx. I don't have records of which and for how long. After reviewing the CT from [place] and comparing to the recent CT done 01/04/20. It appears that whatever is in his colon- inflammatory reaction/drug reaction from the Atezolizumab/infection from divertiuclitis/ or malignancy is worsening. Clinically the pt says he is fine. He has never had any abdominal surgery. He denies any long standin ghx of abdominal problems such as IBS. He has been having severe diarrhea prior to starting the abx. No blood. He said the diarrhea was pouring out of him. His recent C. diff cult was neg. He has not had diarrhea lately, but the he has not been eating. He is not a very good historian and difficult to get info from him. Again he says he has no pain today adn is very hungry. Consults Consult date: 01/05/20 Requesting physician: Della Gonzalez Review of Systems All systems reviewed & are unremarkable except as noted in HPI and below PFSH Medical History History of E. coli septicemia (Acute) Obstructive sleep apnea (Chronic) Surgical History Open Carpal Tunnel release right Repair, ACL (~1991) Family History Mother , 53 Essential hypertension Heart disease Stroke Father , 79 Essential hypertension Asthma Prostate cancer COPD (chronic obstructive pulmonary disease) Sister No problems noted. Sister Essential hypertension Brother Essential hypertension Maternal Grandfather No problems noted. Paternal Grandfather Prostate cancer Maternal Grandmother Diabetes Essential hypertension Paternal Grandmother Diabetes Essential hypertension Heart disease Son Essential hypertension Daughter Essential hypertension Social History Smoking/Tobacco Use Status: Former Tobacco Use Quit Date: 11/27/12 Alcohol Intake: current Alcohol Intake frequency: a few times a week Alcohol type: beer Drug use: Socially Substance use type: does not use Counseling given: Yes Household members: spouse Housing: other Details: Camper Pets and animals: No Sexually active: No Do you think of yourself as: straight/heterosexual Current gender identity: male What is your relationship status?: How often do you talk on the phone with friends or family?: decline to answer How often do you get together with friends or relatives?: once per week How often do you attend nondenominational or buddhist services?: decline to answer Do you belong to any clubs or organized social groups?: yes Panel score (0-1 are the most socially isolated patients): 2 Duration: 45-60 minutes/day Frequency: daily Munira/Mandaen: Uatsdin Special munira needs: Yes Details: Last rit Seatbelt use: always Drive intox or ride w/intox bicycle taxi driver: No Do you feel safe at home: Yes Do you feel safe in your relationship?: Yes Exam HENMT Head: normal to inspection Ears: hearing grossly normal bilaterally and other (mild DOUGLAS) Mouth: oral mucosae normal Teeth and gingiva: fair dentition and multiple restorations Eyes Sclera: sclerae normal Neck Neck: no JVD Resp Effort & Inspection: normal respiratory effort and able to speak in complete sentences Auscultation: clear to auscultation bilaterally Cardio Rate: regular rate Rhythm: regular rhythm GI Inspection: normal to inspection, non-distended and no incisions Palpation: soft, no hepatosplenomegaly, hernia umbilical, nontender and No ascites Auscultation: normal bowel sounds Skin Other: intact. no decubs Extrem General: clubbing, cyanosis or edema noted Results Last Vital Signs Temp 36 C L 01/05/20 07:33 Pulse 77 01/05/20 07:33 Resp 18 01/05/20 07:33 BP 134/73 01/05/20 07:33 Pulse Ox 96 01/05/20 07:46 Labs Result diagrams: 01/05/20 06:21 01/05/20 06:21 Labs: Laboratory Results - last 24 hr 12/31/19 01/04/20 01/04/20 20:25 15:15 17:50 WBC RBC Hgb 9.3 L Hct 28.4 L MCV MCH MCHC RDW Plt Count MPV Immature Gran % Neutrophils % Lymphocytes % Monocytes % Eosinophils % Basophils % Absolute Neutrophils Absolute Lymphocytes Absolute Monocytes Absolute Eosinophils Absolute Basophils Sodium Potassium Chloride Carbon Dioxide Anion Gap BUN Creatinine Estimated GFR/1.73 m2 Glucose Calcium Magnesium Urine Color Yellow Urine Clarity Clear Urine pH 6.0 Ur Specific [place] 1.010 Urine Protein Negative Urine Ketones Negative Urine Blood Trace-intact H Urine Nitrite Negative Urine Bilirubin Negative Urine Urobilinogen 0.2 Ur Leukocyte Esterase Negative Urine RBC 10-20 H Urine WBC 3-5 Ur Epithelial Cells Negative Urine Crystals Negative Urine Bacteria Negative Urine Casts Negative Urine Mucus Negative Urine Other Negative Ur Culture Indicated? No Urine Glucose Negative COVID-19 PCR Cancelled Nasopharyn COVID-19 PCR Cancelled Ref Test Perform Site Cancelled 01/05/20 01/05/20 06:21 06:21 WBC 7.47 RBC 2.89 L Hgb 8.9 L Hct 28.0 L MCV 96.9 H MCH 30.8 MCHC 31.8 L RDW 16.8 H Plt Count 419 H MPV 8.3 Immature Gran % 1.2 Neutrophils % 66.9 Lymphocytes % 16.9 Monocytes % 13.1 Eosinophils % 1.6 Basophils % 0.3 Absolute Neutrophils 5.00 Absolute Lymphocytes 1.26 Absolute Monocytes 0.98 H Absolute Eosinophils 0.12 Absolute Basophils 0.02 Sodium 135 L Potassium 3.5 Chloride 97 L Carbon Dioxide 29.6 Anion Gap 8.4 BUN 5 L Creatinine 0.70 Estimated GFR/1.73 m2 >= 60.00 Glucose 118 H Calcium 8.6 Magnesium 1.4 L Urine Color Urine Clarity Urine pH Ur Specific [place] Urine Protein Urine Ketones Urine Blood Urine Nitrite Urine Bilirubin Urine Urobilinogen Ur Leukocyte Esterase Urine RBC Urine WBC Ur Epithelial Cells Urine Crystals Urine Bacteria Urine Casts Urine Mucus Urine Other Ur Culture Indicated? Urine Glucose COVID-19 PCR Nasopharyn COVID-19 PCR Ref Test Perform Site
[2020-01-05] MEDS: Magnesium Oxide 400 MG TAB 800 MG PO ×2 (10:48→20:29)
[2020-01-05 11:14] LABS: Iron 31 ug/dL (65-175); Total Iron Binding Capacity 140 ug/dL (250-450); Transferrin Sat 22 % (20-55)
[2020-01-05 11:15] LABS: C-Reactive Protein 8.85 mg/dL (0.0-0.3)
--- NOTE | 2020-01-05 11:36 | PDOC.CMPRO ---
Care Management Progress Note S/O: Blair will have a Urology consult with Dr. Nath to determine if his ureter is being obstructed, and if there is a need for stenting. Per MD, imaging taken in [place] will be gathered with [facility] imaging and sent to [facility] for consult and follow-up. Blair has an appointment on 01/07/20. He continues to be closely monitored and continues to require night O2 and mag replacement. A: 69 year old male admitted to [facility] 01/01/20 for weakness, anemia, hypomagnesemia P: Blair will be discharged home as soon as his magnesium levels normalize. He was evaluated by PT who determined that he is safe to go home without additional treatment. Elena will transport him home via private vehicle. He will follow up with his PCP and [facility] as scheduled. CM will continue to provide support to patient, family and discharge planning concerns.
--- NOTE | 2020-01-05 11:50 | W.PM.PROGNOT ---
Date of Service Date of service: 01/05/20 Time of Service: 11:53 Assessment and Plan Assessment and plan (1) Colitis: Start date: 01/05/20 Start time: 12:22 Status: Acute Assessment and plan: Dx known about prior to admission patient was placed on ceftriaxone for septicemia, however c/o pain yesterday from RLQ radiating across abd with tenderness on palpation. CT obtained revealing Marked inflammatory process in the pelvis which appears to be related to some form of colitis resulting also in some obstructive uropathy of the right kidney. Prior diagnostics retrieved from [place] showing colitis without uropathy. Switched to clears Surgery consulted Cipro and yl Feeling better today and would like to eat. (2) Uropathy, obstructive: Start date: 01/05/20 Start time: 12:26 Status: Acute Assessment and plan: Found by CT. Urology consulted. BUN and creatinine low-normal. no fever, WBC in range. Will defer to urology for further recommendations. He denies pain with urination or having a hard time urinating. U/A without nitrates or leuk est. (3) Right lower quadrant abdominal pain: Start date: 01/05/20 Start time: 12:22 Status: Acute Assessment and plan: Appears to be improved today see above (4) Obstructive sleep apnea: Start date: 01/05/20 Start time: 12:30 Status: Chronic Assessment and plan: Overnight oximetry revealing 524 mins of oxygen level less than 88% with 667 events of less than 88%. Patient would benefit from overnight oxygen and sleep study. Maintain o2 when sleeping. (5) Chronic obstructive lung disease: Status: Chronic Assessment and plan: Subjectively feels back to his baseline with regard to breathing. Known to have hypoxemia when he is sleeping but not during the daytime. Will obtain overnight oximetery. Unlikely he will qualify for home oxygen and it probably is not indicated. Continue his home trielegy inhaler. (6) Hypomagnesemia: Start date: 01/05/20 Start time: 12:00 Status: Acute Assessment and plan: Continues to have Mag 1.4, teley on, mag IV and PO. Will d/c home with PO supplementation when ready, will likely need weekly labs to monitor magnesium level, will keep overnight and recheck magnesium level in am (7) Hypokalemia: Start date: 01/05/20 Start time: 12:12 Status: Acute Assessment and plan: Improved. Potassium 3.5 will give PO dose to optimize potassium level. (8) Anemia: Start date: 01/05/20 Start time: 12:12 Status: Chronic Assessment and plan: Iron levels are low, B12 level high. Will place on oral iron supplement. Stool was heme-negative on digital exam in the emergency room. (9) Weakness: Start date: 01/05/20 Start time: 12:12 Status: Acute Assessment and plan: Improving, Feels stable when ambulating. Continue working with PT. Home without anticipated equipment needs per PT (10) Small cell carcinoma of lung: Start date: 01/05/20 Start time: 12:13 Status: Acute Assessment and plan: No pain complaints, no nausea. No unusual shortness of breath. States that his sense of taste and smell are improving following completion of his most recent round of chemotherapy. Treatment plan yet to be defined with appointment locally in the works but not yet completed. (11) GERD (gastroesophageal reflux disease): Start date: 01/05/20 Start time: 12:13 Status: Chronic Assessment and plan: Symptoms controlled with chronic PPI, no changes planned. Qualifiers: Esophagitis presence: esophagitis presence not specified Qualified Code(s): K21.9 - Gastro-esophageal reflux disease without esophagitis (12) Essential hypertension: Start date: 01/05/20 Start time: 12:13 Status: Chronic Assessment and plan: Blood pressure acceptable on his outpatient medications, no changes indicated at this time. (13) History of E. coli septicemia: Start date: 01/05/20 Start time: 12:13 Status: Acute Assessment and plan: From E. Coli due to diverticulitis. Ceftriaxone dcd end date verbally reported by patient on 01/02/2020. We will have the PICC line pulled prior to plan to discharge home. Above case discussed with Dr. Gonzalez who is in agreement. Subjective Subjective Patient reports: no new complaints Interval history since last seen: Hungry and wanting to eat. He was placed on clears yesterday after CT results obtained Marked inflammatory process in the pelvis which appears to be related to some form of colitis resulting also in some obstructive uropathy of the right kidney. Surgery consulted. He is not having any pain today. Urine was without nitrates and leuk est. Stool negative for cdiff and blood. He did have a sleep study overnight. He does require oxygen overnight and will need to go home with oxygen for nighttime. He should also have a sleep study. He denies CP, SOB, N/V/D. Exam Narrative Exam Narrative: No acute emotional or physical distress. Speaks in full sentences. Afebrile. Sclera clear. Cannot see neck veins because of his neck size. His lungs have distant breath sounds with some coarse rhonchi in RUL, no crackles or rub. Regular heart rhythm no S3-S4 or murmur. Abdomen obese soft today no tenderness to RLQ on palpation. Sits up with effort but can do so without assistance. Requiring oxygen at night Objective Objective Clinical Data: Abnormal lab results 01/04/20 01/04/20 01/05/20 Range/Units 15:15 17:50 06:21 RBC (4.50-6.00) m/cumm Hgb 9.3 L (13.5-17.5) g/dL Hct 28.4 L (40.0-50.0) % MCV (80-95) fL MCHC (32.0-36.0) g/dL RDW (11.8-14.1) % Plt Count (130-400) x1000/uL Absolute Monocytes (0.11-0.7) k/cumm Sodium 135 L (136-145) mmol/L Chloride 97 L (98-107) mmol/L BUN 5 L (7-18) mg/dL Glucose 118 H (74-106) mg/dL Magnesium 1.4 L (1.8-2.4) mg/dL Iron (65-175) ug/dL TIBC (250-450) ug/dL C-Reactive Protein (0.0-0.3) mg/dL Urine Blood Trace-intact H (Negative) Urine RBC 10-20 H (0-2) HPF 01/05/20 01/05/20 01/05/20 Range/Units 06:21 06:21 06:21 RBC 2.89 L (4.50-6.00) m/cumm Hgb 8.9 L (13.5-17.5) g/dL Hct 28.0 L (40.0-50.0) % MCV 96.9 H (80-95) fL MCHC 31.8 L (32.0-36.0) g/dL RDW 16.8 H (11.8-14.1) % Plt Count 419 H (130-400) x1000/uL Absolute Monocytes 0.98 H (0.11-0.7) k/cumm Sodium (136-145) mmol/L Chloride (98-107) mmol/L BUN (7-18) mg/dL Glucose (74-106) mg/dL Magnesium (1.8-2.4) mg/dL Iron 31 L (65-175) ug/dL TIBC 140 L (250-450) ug/dL C-Reactive Protein 8.85 H (0.0-0.3) mg/dL Urine Blood (Negative) Urine RBC (0-2) HPF Vital Signs Temperature 36 C L 01/05/20 07:33 Temperature Source Tympanic 01/05/20 07:33 Pulse 77 01/05/20 07:33 Pulse Rhythm Regular 01/05/20 10:31 Pulse 94 H 12/31/19 20:01 Respiratory Rate 18 01/05/20 07:33 Respiratory Effort 01/05/20 10:31 Respiratory Depth Normal 01/05/20 10:31 Respiratory Pattern Normal 01/05/20 10:31 Blood Pressure 134/73 01/05/20 07:33 Blood Pressure Mean 62 12/31/19 20:01 Blood Pressure Position Supine 12/31/19 15:28 Pulse Oximetry 96 01/05/20 07:46 Oxygen Delivery Method Room Air 01/05/20 07:46 Oxygen Flow Rate 0 01/05/20 07:46 Pain Level 0 01/05/20 07:33 Comment 01/04/20 03:45 Intake & Output 01/04/20 01/04/20 01/05/20 11:59 23:59 11:59 Intake Total 220 / 960 740 / 960 665 / 665 Output Total 500 / 750 250 / 750 875 / 875 Balance -280 / 210 490 / 210 -210 / -210 Intake: IV 20 / 320 300 / 320 300 / 300 Oral 200 / 640 440 / 640 365 / 365 Output: Urine 500 / 750 250 / 750 875 / 875 Other: Urine Color Yellow Straw Yellow Urine Appearance Clear Clear Clear Urine Odor None Normal Normal Stool Occult Blood Positive Stool Size Small Small Stool Characteristics Liquid Liquid Brown Green Voiding Methods Urinal Urinal Urinal Laboratory Results WBC 7.47 k/cumm (4.4-10.8) 01/05/20 06:21 RBC 2.89 m/cumm (4.50-6.00) L 01/05/20 06:21 Hgb 8.9 g/dL (13.5-17.5) L 01/05/20 06:21 Hct 28.0 % (40.0-50.0) L 01/05/20 06:21 MCV 96.9 fL (80-95) H 01/05/20 06:21 MCH 30.8 pg (27.0-33.0) 01/05/20 06:21 MCHC 31.8 g/dL (32.0-36.0) L 01/05/20 06:21 RDW 16.8 % (11.8-14.1) H 01/05/20 06:21 Plt Count 419 x1000/uL (130-400) H 01/05/20 06:21 MPV 8.3 fL (8.0-11.0) 01/05/20 06:21 Immature Gran % 1.2 % 01/05/20 06:21 Neutrophils % 66.9 01/05/20 06:21 Band Neutrophils % Cancelled 12/31/19 17:59 Lymphocytes % 16.9 01/05/20 06:21 Atypical Lymphs % Cancelled 12/31/19 17:59 Monocytes % 13.1 01/05/20 06:21 Eosinophils % 1.6 01/05/20 06:21 Basophils % 0.3 01/05/20 06:21 Metamyelocytes % Cancelled 12/31/19 17:59 Myelocytes % Cancelled 12/31/19 17:59 Promyelocytes % Cancelled 12/31/19 17:59 Absolute Neutrophils 5.00 k/cumm (1.2-6.7) 01/05/20 06:21 Absolute Lymphocytes 1.26 k/cumm (1.2-3.4) 01/05/20 06:21 Absolute Monocytes 0.98 k/cumm (0.11-0.7) H 01/05/20 06:21 Absolute Eosinophils 0.12 k/cumm (0.0-0.7) 01/05/20 06:21 Absolute Basophils 0.02 k/cumm (0.0-0.2) 01/05/20 06:21 Nucleated RBCs Cancelled 12/31/19 17:59 Differential Comment Cancelled 12/31/19 17:59 Other Cell Type Cancelled 12/31/19 17:59 RBC Morphology Cancelled 12/31/19 17:59 Polychromasia Cancelled 12/31/19 17:59 Hypochromasia Cancelled 12/31/19 17:59 Poikilocytosis Cancelled 12/31/19 17:59 Basophilic Stippling Cancelled 12/31/19 17:59 Anisocytosis Cancelled 12/31/19 17:59 Microcytosis Cancelled 12/31/19 17:59 Macrocytosis Cancelled 12/31/19 17:59 Spherocytes Cancelled 12/31/19 17:59 Target Cells Cancelled 12/31/19 17:59 Tear Drop Cells Cancelled 12/31/19 17:59 Ovalocytes Cancelled 12/31/19 17:59 Stomatocytes Cancelled 12/31/19 17:59 [place] Bodies Cancelled 12/31/19 17:59 Maribel Cells Cancelled 12/31/19 17:59 Acanthocytes (Spur) Cancelled 12/31/19 17:59 Schistocytes Cancelled 12/31/19 17:59 Sodium 135 mmol/L (136-145) L 01/05/20 06:21 Potassium 3.5 mmol/L (3.5-5.1) 01/05/20 06:21 Chloride 97 mmol/L (98-107) L 01/05/20 06:21 Carbon Dioxide 29.6 mmol/L (21.0-32.0) 01/05/20 06:21 Anion Gap 8.4 mmol/L (3-11) 01/05/20 06:21 BUN 5 mg/dL (7-18) L 01/05/20 06:21 Creatinine 0.70 mg/dL (0.70-1.30) 01/05/20 06:21 Estimated GFR/1.73 m2 >= 60.00 (mL/min/1.73m2) 01/05/20 06:21 Glucose 118 mg/dL (74-106) H 01/05/20 06:21 Calcium 8.6 mg/dL (8.5-10.1) 01/05/20 06:21 Magnesium 1.4 mg/dL (1.8-2.4) L 01/05/20 06:21 Iron 31 ug/dL (65-175) L 01/05/20 06:21 TIBC 140 ug/dL (250-450) L 01/05/20 06:21 Transferrin % Sat 22 % (20-55) 01/05/20 06:21 Total Bilirubin Cancelled 12/31/19 17:59 AST Cancelled 12/31/19 17:59 ALT Cancelled 12/31/19 17:59 Alkaline Phosphatase Cancelled 12/31/19 17:59 Troponin I Cancelled 12/31/19 20:59 C-Reactive Protein 8.85 mg/dL (0.0-0.3) H 01/05/20 06:21 Total Protein Cancelled 12/31/19 17:59 Albumin Cancelled 12/31/19 17:59 Vitamin B12 1865 pg/mL (193-986) H 01/02/20 06:20 Urine Color Yellow (Yellow) 01/04/20 17:50 Urine Clarity Clear (Clear) 01/04/20 17:50 Urine pH 6.0 (5-8) 01/04/20 17:50 Ur Specific [place] 1.010 (1.005-1.025) 01/04/20 17:50 Urine Protein Negative mg/dL (Negative) 01/04/20 17:50 Urine Ketones Negative mg/dL (Negative) 01/04/20 17:50 Urine Blood Trace-intact (Negative) H 01/04/20 17:50 Urine Nitrite Negative (Negative) 01/04/20 17:50 Urine Bilirubin Negative (Negative) 01/04/20 17:50 Urine Urobilinogen 0.2 EU/dL (Up TO 0.2) 01/04/20 17:50 Ur Leukocyte Esterase Negative (Negative) 01/04/20 17:50 Urine RBC 10-20 HPF (0-2) H 01/04/20 17:50 Urine WBC 3-5 HPF (0-5) 01/04/20 17:50 Ur Epithelial Cells Negative HPF (Negative) 01/04/20 17:50 Urine Crystals Negative HPF (Negative) 01/04/20 17:50 Urine Bacteria Negative HPF (Negative) 01/04/20 17:50 Urine Casts Negative LPF (Negative) 01/04/20 17:50 Urine Mucus Negative (Negative) 01/04/20 17:50 Urine Other Negative (Negative) 01/04/20 17:50 Ur Culture Indicated? No 01/04/20 17:50 Urine Glucose Negative mg/dL (Negative) 01/04/20 17:50 COVID-19 PCR Negative (Negative) 01/02/20 08:15 Nasopharyn COVID-19 PCR Not Applicable 01/02/20 08:15 Ref Test Perform Site [facility] lab 01/02/20 08:15 Patient ABO/Rh O Positive 12/31/19 18:20 Antibody Screen Negative 12/31/19 18:20 Crossmatch See Detail 12/31/19 18:20
[2020-01-05] MEDS: Potassium Chloride 20 MEQ TABCR 40 MEQ PO (12:31)
--- NOTE | 2020-01-05 13:13 | W.NUTCONSULT ---
Date of service: 01/05/20 Time of Service: 13:13 Nutritional Consult ASSESSMENT: 69 year old male admitted with colitis, sepsis, on chemo for small cell carcinoma of lung, admitted with anemia, hypokalemia, hypo mg, hypo calcemia. Has been on clear liquid diet x 5 days, nursing reports continued decrease in hgb indicating blood loss, diet to be advanced once loss of blood identified. BMI indicates class 2 obesity. Met with Lawrencepina today, he is hungry and wants mac n cheese and two grilled cheese sandwiches. Estimated Needs: 5639-2110 kcal, 80-90 g protein. NUTRITIONAL DIAGNOSIS: At risk for malnutrition in view of inadequate nutrient intake for 5 days INTERVENTION: Will provide ensure clear TID to supplement clear liquid diet in calories and protein. ensure clear 200, 15 g protein each. MONITORING AND EVALUATION: will monitor po intake, labs, weight Time Spent in Nutritional Counseling and Treatment: 10 min
[2020-01-05] MEDS: IRON SUCROSE COMPLEX 300 MG in Normal Saline 250 ML 167 MG IVPB (15:08)
[2020-01-05 15:37] VITALS: BP 133/76; PULSE 92; RESP 15; TEMP 37.1; O2SAT 91
[2020-01-05] MEDS: Atorvastatin 20 MG TAB PO (20:29)
[2020-01-05 21:52] VITALS: BP 128/76; PULSE 84; RESP 18; TEMP 36.7; O2SAT 96
[2020-01-06] MEDS: metroNIDAZOLE 500 MG/100 ML BAG 100 MG IVPB ×2 (02:17→09:15)
[2020-01-06] MEDS: CIPROFLOXACIN 400 MG/200 ML BAG 200 MG IVPB (03:28)
[2020-01-06 03:41] VITALS: BP 144/72; PULSE 75; RESP 18; TEMP 36.8; O2SAT 95
[2020-01-06] MEDS: Normal Saline Flush 10 ML SYR IVP (04:48)
--- NOTE | 2020-01-06 06:35 | UCONE_ITS ---
Date of service: 01/05/20 Time of Service: 15:35 Assessment and Plan Assessment and plan (1) Uropathy, obstructive: Status: Acute Assessment and plan: I do not have his films from [place] for comparison, but by history, it sounds like his process is progressing rather than resolving. For that reason, I would suggest that a right ureteral stent be placed. I discussed this with both the patient and his . They would prefer that any procedure necessary be performed at a larger facility. They mentioned that the patient has an appointment with the oncology team down at [facility] later this week and they would prefer that any cystoscopy and stent placement be done at [facility] instead of at our facility. I think this is quite reasonable given his complex history. I am not sure if a transfer can be arranged or if an urgent outpatient appointment would be requested. History of Present Illness History of Present Illness Chief Complaint: Right hydronephrosis Narrative: This is a 69-year-old gentleman who has been receiving most of his care down in [place]. He diagnosed with metastatic small cell carcinoma of the lung in June of this past year. 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 He was started on systemic chemotherapy while in [place]. He then developed a febrile illness with E. coli sepsis. The exact origin of the E. coli was not identified, but there was a presumptive bowel source. He was evaluated by an i nfectious disease specialist in [place]. As far as he or his are aware, there was never any indication that he had hydronephrosis on his initial evaluation. He was hospitalized for IV antibiotics for about a week while in [place]. He then transition to outpatient IV treatment and came back north to [place]. He was ultimately admitted to the hospital with weakness and electrolyte abnormali ties. At our initial CT scan at this facility shows some inflammatory changes in the pelvis and what appears to be a new finding of right hydronephrosis. 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 He believes this was diagnosed about 10 years ago. His work-up was prompted by a long history of microscopic hematuria. He was followed with surveillance cystoscopies out to 5 years and no recurrence was ever identified. After 5 years, it was decided that no additional follow-up was needed. Review of Systems Constitutional Constitutional: Reports fatigue, Denies fever(s) and Reports weakness Cardiovascular Cardiovascular: Denies chest pain and Reports dyspnea on exertion Respiratory Respiratory: Reports cough and Reports dyspnea on exertion Neurologic Neurologic: Reports weakness Endocrine Endocrine: Reports fatigue FOR[facility] Medical History (Updated 01/05/20 @ 15:58 by Ivonne Winchester DO) Fe deficiency anemia (Acute) History of E. coli septicemia (Acute) Obstructive sleep apnea (Chronic) Surgical History Open Carpal Tunnel release right Repair, ACL (~1991) Family History Mother , 53 Essential hypertension Heart disease Stroke Father , 79 Essential hypertension Asthma Prostate cancer COPD (chronic obstructive pulmonary disease) Sister No problems noted. Sister Essential hypertension Brother Essential hypertension Maternal Grandfather No problems noted. Paternal Grandfather Prostate cancer Maternal Grandmother Diabetes Essential hypertension Paternal Grandmother Diabetes Essential hypertension Heart disease Son Essential hypertension Daughter Essential hypertension Social History Smoking/Tobacco Use Status: Former Tobacco Use Quit Date: 11/27/12 Alcohol Intake: current Alcohol Intake frequency: a few times a week Alcohol type: beer Drug use: Socially Substance use type: does not use Counseling given: Yes Household members: spouse Housing: other Details: Camper Pets and animals: No Sexually active: No Do you think of yourself as: straight/heterosexual Current gender identity: male What is your relationship status?: How often do you talk on the phone with friends or family?: decline to answer How often do you get together with friends or relatives?: once per week How often do you attend druze or muslim services?: decline to answer Do you belong to any clubs or organized social groups?: yes Panel score (0-1 are the most socially isolated patients): 2 Duration: 45-60 minutes/day Frequency: daily Munira/Congregational: Anabaptism Special munira needs: Yes Details: Last rites Seatbelt use: always Drive intox or ride w/intox bus driver/monitor: No Do you feel safe at home: Yes Do you feel safe in your relationship?: Yes Exam Narrative Exam Narrative: He is a pleasant older gentleman who does not appear septic or toxic at this point His vital signs are documented elsewhere His abdomen is soft with no peritoneal signs He is awake and alert I reviewed his CT scan on the PACS system. There is a CT from 2 or 3 years ago for comparison. I do not see any intra-ureteral pathology, but there are significant inflammatory changes in the pelvis and an increase in dilation of the right renal pelvis and calyces. Results Last Vital Signs Temp 36.8 C 01/06/20 03:41 Pulse 75 01/06/20 03:41 Resp 18 01/06/20 03:41 BP 144/72 H 01/06/20 03:41 Pulse Ox 95 01/06/20 03:41 Labs Result diagrams: 01/05/20 06:21 01/05/20 06:21 Labs: Laboratory Results - last 24 hr 12/31/19 01/05/20 01/05/20 20:25 06:21 06:21 WBC 7.47 RBC 2.89 L Hgb 8.9 L Hct 28.0 L MCV 96.9 H MCH 30.8 MCHC 31.8 L RDW 16.8 H Plt Count 419 H MPV 8.3 Immature Gran % 1.2 Neutrophils % 66.9 Lymphocytes % 16.9 Monocytes % 13.1 Eosinophils % 1.6 Basophils % 0.3 Absolute Neutrophils 5.00 Absolute Lymphocytes 1.26 Absolute Monocytes 0.98 H Absolute Eosinophils 0.12 Absolute Basophils 0.02 Sodium 135 L Potassium 3.5 Chloride 97 L Carbon Dioxide 29.6 Anion Gap 8.4 BUN 5 L Creatinine 0.70 Estimated GFR/1.73 m2 >= 60.00 Glucose 118 H Calcium 8.6 Magnesium 1.4 L Iron TIBC Transferrin % Sat C-Reactive Protein COVID-19 PCR Cancelled Nasopharyn COVID-19 PCR Cancelled Ref Test Perform Site Cancelled 01/05/20 01/05/20 06:21 06:21 WBC RBC Hgb Hct MCV MCH MCHC RDW Plt Count MPV Immature Gran % Neutrophils % Lymphocytes % Monocytes % Eosinophils % Basophils % Absolute Neutrophils Absolute Lymphocytes Absolute Monocytes Absolute Eosinophils Absolute Basophils Sodium Potassium Chloride Carbon Dioxide Anion Gap BUN Creatinine Estimated GFR/1.73 m2 Glucose Calcium Magnesium Iron 31 L TIBC 140 L Transferrin % Sat 22 C-Reactive Protein 8.85 H COVID-19 PCR Nasopharyn COVID-19 PCR Ref Test Perform Site
[2020-01-06 07:16] VITALS: BP 132/78; PULSE 80; RESP 16; TEMP 37; O2SAT 94
[2020-01-06] MEDS: Sertraline 50 MG TAB 100 MG PO (07:58)
[2020-01-06] MEDS: Magnesium Oxide 400 MG TAB 800 MG PO (07:58)
[2020-01-06] MEDS: Tamsulosin 0.4 MG CAPCR PO (07:59)
[2020-01-06] MEDS: Oxybutynin-CR 5 MG TABCR PO (07:59)
[2020-01-06] MEDS: dilTIAZem CD 120 MG CAPCR 240 MG PO (07:59)
[2020-01-06 08:00] VITALS: O2SAT 100
[2020-01-06] MEDS: Pantoprazole 40 MG VIAL IVP (08:13)
[2020-01-06 09:03] VITALS: O2SAT 91
[2020-01-06 09:11] LABS: Abs Immature Grans 0.09 k/cumm (0.0-0.09); Absolute Basophil Count 0.02 k/cumm (0.0-0.2); Absolute Eosinophil Count 0.06 k/cumm (0.0-0.7); Absolute Lymphocyte Count 1.48 k/cumm (1.2-3.4); Absolute Monocyte Count 0.94 k/cumm (0.11-0.7); Basophils % 0.2; Eosinophils % 0.7; HCT 29.9 % (40.0-50.0); HGB 9.5 g/dL (13.5-17.5); Immature Grans % 1.1 %; Lymphocytes % 18.1; Mean Corp. HGB Concentration 31.8 g/dL (32.0-36.0); Mean Corpuscular Hemoglobin 30.8 pg (27.0-33.0); Mean Corpuscular Volume 97.1 fL (80-95); Mean Platelet Volume 8.4 fL (8.0-11.0); Monocytes % 11.5; Neutrophils % 68.4; Platelet Count 419 x1000/uL (130-400); RBC 3.08 m/cumm (4.50-6.00); RBC Distribution Width 16.8 % (11.8-14.1); White Blood Cell Count 8.19 k/cumm (4.4-10.8)
[2020-01-06 09:20] LABS: BUN 4 mg/dL (7-18); C-Reactive Protein 9.44 mg/dL (0.0-0.3); CREATININE 0.87 mg/dL (0.70-1.30); Calcium 8.4 mg/dL (8.5-10.1); Chloride 96 mmol/L (98-107); Glucose 127 mg/dL (74-106); Magnesium 1.5 mg/dL (1.8-2.4); Potassium 3.5 mmol/L (3.5-5.1); Sodium 133 mmol/L (136-145)
[2020-01-06 09:27] LABS: Anisocytosis 1+; Basophilic Stippling Present; Diff Comment RBC Morph Reviewed; Polychromasia Present
--- NOTE | 2020-01-06 10:36 | CMPROGNOTE_ITS ---
Care Management Progress Note S/O: Blair had a Urology consult with Dr. Nath who is recommending a right uretal stent. Per MD, imaging taken in [place] will be gathered with [facility] imaging and sent to [facility] for consult and follow-up. Blair has an appointment on 01/07/20. He continues to be closely monitored and continues to require night O2 and mag replacement. CM continues to follow. A: 69 year old male admitted to [facility] 01/01/20 for weakness, anemia, hypomagnesemia P: Blair was evaluated by PT who determined that he is safe to go home without additional treatment. He will either transfer to [facility] [place] via EMS or follow up with Urology and [facility] as an outpatient via private vehicle. CM awaiting determination, CM spoke with Blair's Elena today who shared concerns about discharge plan and shared preference for transfer. She reported only wishing to speak to Dr. Nath, CM called Antonia natural developer who agreed to brief Elena on situation and connect her with Dr. Nath.
--- NOTE | 2020-01-06 10:36 | PDOC.CMPRO ---
Care Management Progress Note S/O: Blair had a Urology consult with Dr. Nath who is recommending a right uretal stent. Per MD, imaging taken in [place] will be gathered with [facility] imaging and sent to [facility] for consult and follow-up. Blair has an appointment on 01/07/20. He continues to be closely monitored and continues to require night O2 and mag replacement. CM continues to follow. A: 69 year old male admitted to [facility] 01/01/20 for weakness, anemia, hypomagnesemia P: Blair was evaluated by PT who determined that he is safe to go home without additional treatment. He will either transfer to [facility] directly via EMS or follow up with Urology and [facility] as an outpatient via private vehicle. CM awaiting determination, CM spoke with Blair's Elena today who shared concerns about discharge plan and shared preference for transfer. She reported only wishing to speak to Dr. Nath, CM called Antonia product tester fiberglass who agreed to brief Elena on situation and connect her with Dr. Nath.
[2020-01-06] MEDS: MAGNESIUM SULFATE 4 GM/100 ML BAG IVPB (10:39)
[2020-01-06] MEDS: Potassium Chloride 20 MEQ TABCR 40 MEQ PO (10:39)
--- NOTE | 2020-01-06 11:44 | PGE_ITS ---
Date of Service Date of service: 01/06/20 Time of Service: 11:44 Assessment and Plan Assessment and plan (1) Colitis: Status: Acute Assessment and plan: He is clinically stable. Will advance diet to soft Etiology of colitis still unclear - IBD/infection/medication side effect. Cdiff negative, other cultures pending. Colitis was present on colonoscopy in August. Agree with continuing antibiotics. Can consider discharge and continue evaluation as outpatient - has oncology appt tomorrow. Will need GI consultation. Subjective Subjective Interval history since last seen: Patient has no new complaints. Tolerating clear liquids Had three loose stools this morning, no visible blood present. No abdominal pain, does feel gassy Exam Narrative Exam Narrative: No acute distress Abdomen not distended, soft, no significant tenderness Objective Objective Clinical Data: Abnormal lab results 01/06/20 01/06/20 Range/Units 09:00 09:00 RBC 3.08 L (4.50-6.00) m/cumm Hgb 9.5 L (13.5-17.5) g/dL Hct 29.9 L (40.0-50.0) % MCV 97.1 H (80-95) fL MCHC 31.8 L (32.0-36.0) g/dL RDW 16.8 H (11.8-14.1) % Plt Count 419 H (130-400) x1000/uL Absolute Monocytes 0.94 H (0.11-0.7) k/cumm Sodium 133 L (136-145) mmol/L Chloride 96 L (98-107) mmol/L BUN 4 L (7-18) mg/dL Glucose 127 H (74-106) mg/dL Calcium 8.4 L (8.5-10.1) mg/dL Magnesium 1.5 L (1.8-2.4) mg/dL C-Reactive Protein 9.44 H (0.0-0.3) mg/dL Vital Signs Temperature 98.6 F 01/06/20 07:16 Temperature Source Tympanic 01/06/20 07:16 Pulse 80 01/06/20 07:16 Pulse Rhythm Regular 01/06/20 09:26 Pulse 94 H 12/31/19 20:01 Respiratory Rate 16 01/06/20 07:16 Respiratory Effort Non-Labored 01/06/20 09:26 Respiratory Depth Normal 01/06/20 09:26 Respiratory Pattern Normal 01/06/20 09:26 Blood Pressure 132/78 01/06/20 07:16 Blood Pressure Mean 62 12/31/19 20:01 Blood Pressure Position Supine 12/31/19 15:28 Pulse Oximetry 91 L 01/06/20 09:03 Oxygen Delivery Method Room Air 01/06/20 09:03 Oxygen Flow Rate 0 01/06/20 09:03 Pain Level 0 01/06/20 07:16 Comment 01/04/20 03:45 Intake & Output 01/05/20 01/05/20 01/06/20 11:59 23:59 11:59 Intake Total 665 / 2330 1665 / 2330 400 / 400 Output Total 875 / 1725 850 / 1725 300 / 300 Balance -210 / 605 815 / 605 100 / 100 Weight 246 lb 7.629 oz 243 lb 9.773 oz Intake: IV 300 / 975 675 / 975 110 / 110 Oral 365 / 1355 990 / 1355 290 / 290 Output: Urine 875 / 1725 850 / 1725 300 / 300 Other: Urine Color Yellow Yellow Yellow Urine Appearance Clear Clear Clear Urine Odor Normal None Comment mixed withb loose stool Stool Size Small Small Smear Stool Characteristics Liquid Soft Liquid Brown Voiding Methods Urinal Toilet Toilet Laboratory Results WBC 8.19 k/cumm (4.4-10.8) 01/06/20 09:00 RBC 3.08 m/cumm (4.50-6.00) L 01/06/20 09:00 Hgb 9.5 g/dL (13.5-17.5) L 01/06/20 09:00 Hct 29.9 % (40.0-50.0) L 01/06/20 09:00 MCV 97.1 fL (80-95) H 01/06/20 09:00 MCH 30.8 pg (27.0-33.0) 01/06/20 09:00 MCHC 31.8 g/dL (32.0-36.0) L 01/06/20 09:00 RDW 16.8 % (11.8-14.1) H 01/06/20 09:00 Plt Count 419 x1000/uL (130-400) H 01/06/20 09:00 MPV 8.4 fL (8.0-11.0) 01/06/20 09:00 Immature Gran % 1.1 % 01/06/20 09:00 Neutrophils % 68.4 01/06/20 09:00 Band Neutrophils % Cancelled 12/31/19 17:59 Lymphocytes % 18.1 01/06/20 09:00 Atypical Lymphs % Cancelled 12/31/19 17:59 Monocytes % 11.5 01/06/20 09:00 Eosinophils % 0.7 01/06/20 09:00 Basophils % 0.2 01/06/20 09:00 Metamyelocytes % Cancelled 12/31/19 17:59 Myelocytes % Cancelled 12/31/19 17:59 Promyelocytes % Cancelled 12/31/19 17:59 Absolute Neutrophils 5.60 k/cumm (1.2-6.7) 01/06/20 09:00 Absolute Lymphocytes 1.48 k/cumm (1.2-3.4) 01/06/20 09:00 Absolute Monocytes 0.94 k/cumm (0.11-0.7) H 01/06/20 09:00 Absolute Eosinophils 0.06 k/cumm (0.0-0.7) 01/06/20 09:00 Absolute Basophils 0.02 k/cumm (0.0-0.2) 01/06/20 09:00 Nucleated RBCs Cancelled 12/31/19 17:59 Differential Comment Rbc morph reviewed 01/06/20 09:00 Other Cell Type Cancelled 12/31/19 17:59 RBC Morphology See below 01/06/20 09:00 Polychromasia Present 01/06/20 09:00 Hypochromasia Cancelled 12/31/19 17:59 Poikilocytosis Cancelled 12/31/19 17:59 Basophilic Stippling Present 01/06/20 09:00 Anisocytosis 1+ 01/06/20 09:00 Microcytosis Cancelled 12/31/19 17:59 Macrocytosis Cancelled 12/31/19 17:59 Spherocytes Cancelled 12/31/19 17:59 Target Cells Cancelled 12/31/19 17:59 Tear Drop Cells Cancelled 12/31/19 17:59 Ovalocytes Cancelled 12/31/19 17:59 Stomatocytes Cancelled 12/31/19 17:59 [place] Bodies Cancelled 12/31/19 17:59 Maribel Cells Cancelled 12/31/19 17:59 Acanthocytes (Spur) Cancelled 12/31/19 17:59 Schistocytes Cancelled 12/31/19 17:59 Sodium 133 mmol/L (136-145) L 01/06/20 09:00 Potassium 3.5 mmol/L (3.5-5.1) 01/06/20 09:00 Chloride 96 mmol/L (98-107) L 01/06/20 09:00 Carbon Dioxide 29.0 mmol/L (21.0-32.0) 01/06/20 09:00 Anion Gap 8.0 mmol/L (3-11) 01/06/20 09:00 BUN 4 mg/dL (7-18) L 01/06/20 09:00 Creatinine 0.87 mg/dL (0.70-1.30) 01/06/20 09:00 Estimated GFR/1.73 m2 >= 60.00 (mL/min/1.73m2) 01/06/20 09:00 Glucose 127 mg/dL (74-106) H 01/06/20 09:00 Calcium 8.4 mg/dL (8.5-10.1) L 01/06/20 09:00 Magnesium 1.5 mg/dL (1.8-2.4) L 01/06/20 09:00 Iron 31 ug/dL (65-175) L 01/05/20 06:21 TIBC 140 ug/dL (250-450) L 01/05/20 06:21 Transferrin % Sat 22 % (20-55) 01/05/20 06:21 Total Bilirubin Cancelled 12/31/19 17:59 AST Cancelled 12/31/19 17:59 ALT Cancelled 12/31/19 17:59 Alkaline Phosphatase Cancelled 12/31/19 17:59 Troponin I Cancelled 12/31/19 20:59 C-Reactive Protein 9.44 mg/dL (0.0-0.3) H 01/06/20 09:00 Total Protein Cancelled 12/31/19 17:59 Albumin Cancelled 12/31/19 17:59 Vitamin B12 1865 pg/mL (193-986) H 01/02/20 06:20 Urine Color Yellow (Yellow) 01/04/20 17:50 Urine Clarity Clear (Clear) 01/04/20 17:50 Urine pH 6.0 (5-8) 01/04/20 17:50 Ur Specific [place] 1.010 (1.005-1.025) 01/04/20 17:50 Urine Protein Negative mg/dL (Negative) 01/04/20 17:50 Urine Ketones Negative mg/dL (Negative) 01/04/20 17:50 Urine Blood Trace-intact (Negative) H 01/04/20 17:50 Urine Nitrite Negative (Negative) 01/04/20 17:50 Urine Bilirubin Negative (Negative) 01/04/20 17:50 Urine Urobilinogen 0.2 EU/dL (Up TO 0.2) 01/04/20 17:50 Ur Leukocyte Esterase Negative (Negative) 01/04/20 17:50 Urine RBC 10-20 HPF (0-2) H 01/04/20 17:50 Urine WBC 3-5 HPF (0-5) 01/04/20 17:50 Ur Epithelial Cells Negative HPF (Negative) 01/04/20 17:50 Urine Crystals Negative HPF (Negative) 01/04/20 17:50 Urine Bacteria Negative HPF (Negative) 01/04/20 17:50 Urine Casts Negative LPF (Negative) 01/04/20 17:50 Urine Mucus Negative (Negative) 01/04/20 17:50 Urine Other Negative (Negative) 01/04/20 17:50 Ur Culture Indicated? No 01/04/20 17:50 Urine Glucose Negative mg/dL (Negative) 01/04/20 17:50 COVID-19 PCR Negative (Negative) 01/02/20 08:15 Nasopharyn COVID-19 PCR Not Applicable 01/02/20 08:15 Ref Test Perform Site [place] [facility] 01/02/20 08:15 Patient ABO/Rh O Positive 12/31/19 18:20 Antibody Screen Negative 12/31/19 18:20 Crossmatch See Detail 12/31/19 18:20
[2020-01-06 15:20] VITALS: BP 120/75; PULSE 83; RESP 20; TEMP 36.5; O2SAT 93
--- NOTE | 2020-01-06 17:32 | DSE_ITS ---
Date of service: 01/06/20 Time of Service: 17:33 DS: Diagnosis Discharge Diagnosis (1) Colitis: Status: Acute (2) Uropathy, obstructive: Status: Acute (3) Fe deficiency anemia: Status: Suspected Asessment and Plan: suspected; s/p transfusion of 2 units of pRBCs on 12/30- 01/01/2020 (4) COVID-19 ruled out by laboratory testing: Status: Acute (5) History of E. coli septicemia: Status: Acute (6) Obstructive sleep apnea: Status: Chronic Asessment and Plan: noncompliant with CPAP; notable nocturnal hypoxia without it. (7) Hypokalemia: Status: Acute (8) Hypomagnesemia: Status: Acute (9) Small cell carcinoma of lung: Status: Acute (10) Hypertension: Status: Chronic (11) COPD (chronic obstructive pulmonary disease): Status: Chronic (12) Anemia: Status: Chronic Discharge Plan Disposition Patient Disposition: HOME Condition: Stable Discharge Details Chief Complaint: GenMedical Clinical Impression: Anemia, Hypokalemia, Hypomagnesemia, Hypocalcemia Reason For Visit: WEAKNESS Admit Date/Time: 01/01/20 09:40 Admit Provider: Damian Hutchison Attending Provider: Damian Hutchison Primary Care Provider: Mat Mix ED Provider: aRmesh Smith Hospital Course Hospital Course: Mr Villasenor is a 69 year old male with PMHx of 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 Coli bacteremia, source thought to be due to sigmoid diverticulitis, still on IV ceftriaxone via a PICC line at the time of presentation to [facility] ED, who was admitted to the hospitalist service on 12/31/2019 with weakness due to hypokalemia and hypomagnesemia. His electrolytes required serial intravenous and oral repletion during this admission. He has not had any arrhythmic events on telemetry. He also was found to have hemoccult negative anemia with H/H that went down to 7.7/23.9. He did receive 2 units of pRBCs for his anemia due to his symptoms of weakness. Meanwhile, he had residual RLQ tenderness even upon completion of his course of ceftriaxone on 01/03/2020, for which a repeat CT of the abdomen/pelvis was obtained, showing what appears to be worsening sigmoid colitis with inflammation extending to right renal collecting system with mild-moderate obstructive uropathy without evidence of stone. His UA was negative and creatinine was 0.87. He was then initiated on ciprofloxacin and metronidazole. Urology and surgical consultations were pursued. Urology recommended a possible ureteral stent, but the patient and his felt they would rather have this done at [facility], where a referral has been placed and close follow up arranged prior to discharge. General surgery raised the possibility that this colitis may not be infectious in nature but, rather, inflammatory or a reaction to chemotherapy. However, we found a report from patient's colonoscopy in 08/2019 with sigmoid colitis seen then - prior to chemotherapy beginning. At this time, the patient has been referred to [facility] GI with close follow up as well (I spoke with Dr Hutchins), and the patient is being discharged home with a total of a 2 week course of ciprofloxacin/flagyl (11 days remaining). The patient will keep his PICC line in because of high likelihood of requiring IV magnesium infusions after his discharge. He is being discharged on slow mag 128 mg PO BID. He should have repeat bloodwork done on 01/08/2020 with results going to Dr Mix (his PCP) who could then arrange [facility] infusion room magnesium, if needed. While there was lack of clarity about patient's use of CPAP (he required O2 at night at [facility] and did not wear the CPAP here), he does have his working CPAP machine at home, and he had a sleep study 2 years ago. He should follow up with his PCP if it is felt that bleed-in oxygen might be needed for an outpatient overnight oxymetry. The patient's reassures us he will wear the CPAP and refused his oxygen prescription (in case he doesn't). The patient has a follow up appointment with [facility] hem/onc tomorrow. We've been in close contact with them updating them on the patient's case. The patient is medically stable for discharge home today. Care for patient as well as completion of his discharge summary on day of discharge took at least 120 minutes (including conversations with [facility] Hem/on, GI, urology, patient's , Dr Nath, general surgery, and general coordination of care). Home Meds and New Rx's Prescriptions: New magnesium chloride [Mag 64] 64 mg Tablet,Delayed Release (Dr/Ec) 128 mg PO BID Qty: 120 RF: 0 ciprofloxacin HCl [Cipro] 250 mg tablet 250 mg PO BID Qty: 22 RF: 0 metronidazole 500 mg tablet 500 mg PO Q8H Qty: 33 RF: 0 Continued albuterol sulfate [Proventil HFA] 6.7 GM HFA aerosol inhaler 2 puff Inhalation QID PRNQty: 3 RF: 1 Fluticasone/Umeclidin/Vilanter [Trelegy Ellipta 100-62.5-25] 1 EACH BLST.W.DEV 1 ea Inhalation DAILY RF: 0 albuterol sulfate 2.5 mg /3 mL (0.083 %) solution for nebulization 2.5 mg Inhalation Q6H PRN Qty: 180 RF: 4 atorvastatin [Lipitor] 40 mg tablet 20 mg PO DAILY Qty: 45 RF: 4 diltiazem HCl [Cartia XT] 240 mg capsule,extended release 24hr 240 mg PO DAILY Qty: 90 RF: 4 lansoprazole [Prevacid] 30 mg capsule,delayed release(DR/EC) 30 mg PO DAILY Qty: 90 RF: 4 losartan 25 mg tablet 25 mg PO DAILY Qty: 90 RF: 4 oxybutynin chloride 5 mg tablet extended release 24hr 5 mg PO DAILY Qty: 90 RF: 4 tamsulosin 0.4 mg capsule 0.4 mg PO DAILY Qty: 90 RF: 4 sertraline 100 mg tablet 100 mg PO DAILY Qty: 90 RF: 4 aspirin [Ecotrin Low Strength] 81 mg tablet,delayed release (DR/EC) 81 mg PO DAILY Qty: 90 RF: 4 loratadine 10 MG tablet 1 tab PO DAILY PRNRF: 0 fish,bora,flax oils-om3,6,9no1 [Orange 3-6-9 Complex] 400 MG capsule 1 tab PO DAILY RF: 0 Discharge Instructions Instructions: Ciprofloxacin (By mouth), Metronidazole (By mouth), Colitis (ED), How to Care for Your PICC (Peripherally Inserted Central Catheter) (DC) Additional Instructions: Return to the hospital with worsening abdominal pain, fever, bleeding, chest pain, shortness of breath. Finish your antibiotics as instructed. Follow up with your PCP in 1-2 weeks. Follow up with [facility] heme onc as previously scheduled on 01/07/2020. Bloodwork 01/08/2020 - results to Dr Mix. Stand Alone Forms: Nursing Discharge Form Referrals: GASTROENTEROLOGY,[facility] [OTHER] - HEMATOLOGY/ONC,[facility] [OTHER] - UROLOGY,[facility] [OTHER] - Yaya Nath MD [ [facility] STAFF PHYSICIAN] - Mat Mix MD [Primary Care Provider] - 01/08/20 10:40 am (In person appointment, not phone visit. ) Activity:: Activity as Tolerated Equipment/Supplies:: No Equipment Needed Diet:: As Tolerated Discharge Orders Discharge Orders: Discharge Order (Routine); Ordered 01/06/20 Ordered By: Della Gonzalez Other Ambulatory Orders: Basic Metabolic Panel (Routine) Timeframe: 20200108 Location: Determined by Patient Ordered By: Della Gonzalez Complete Blood Count w/Diff (Routine) Timeframe: 20200108 Location: Determined by Patient Ordered By: Della Gonzalez Magnesium (Routine) Timeframe: 20200108 Location: Determined by Patient Ordered By: Della Gonzalez DS: Summary Status at Discharge Functional status at discharge: independent ambulation Overall status at discharge: patient is progressing back to baseline Mental Status: mental status grossly normal Speech and Movement: speech and movement normal Mood: congruent mood Affect: normal affect Exam Narrative Exam Narrative: General: obese male, A&Ox3, looks comfortable HEENT: EOMI, MMM Heart: RRR, no m/r/g Lungs: CTAB Abdomen: soft, obese, nontender, nondistended Extremities: no e/c/c BLE's Psych Mental Status: mental status grossly normal Speech and Movement: speech and movement normal Mood: congruent mood Affect: normal affect DS: Data Vitals/I&O Vitals and I&O: Vital Signs Temperature 36.5 C 01/06/20 15:20 Temperature Source Tympanic 01/06/20 15:20 Pulse 83 01/06/20 15:20 Pulse Rhythm Regular 01/06/20 09:26 Pulse 94 H 12/31/19 20:01 Respiratory Rate 20 01/06/20 15:20 Respiratory Effort Non-Labored 01/06/20 09:26 Respiratory Depth Normal 06/09/20 09:26 Respiratory Pattern Normal 01/06/20 09:26 Blood Pressure 120/75 01/06/20 15:20 Blood Pressure Mean 62 12/31/19 20:01 Blood Pressure Position Supine 12/31/19 15:28 Pulse Oximetry 93 L 01/06/20 15:20 Oxygen Delivery Method Room Air 01/06/20 15:20 Oxygen Flow Rate 0 01/06/20 15:20 Pain Level 0 01/06/20 15:20 Comment 01/04/20 03:45 Intake & Output 01/05/20 01/06/20 01/06/20 23:59 11:59 23:59 Intake Total 1665 / 2330 400 / 650 250 / 650 Output Total 850 / 1725 300 / 300 Balance 815 / 605 100 / 350 250 / 350 Weight 110.5 kg Intake: IV 675 / 975 110 / 110 Oral 990 / 1355 290 / 540 250 / 540 Output: Urine 850 / 1725 300 / 300 Other: Urine Color Yellow Yellow Urine Appearance Clear Clear Urine Odor None Comment mixed withb loose stool Stool Size Small Smear Stool Characteristics Soft Liquid Brown Voiding Methods Toilet Toilet Data Completed and Pending Completed studies during hospitalization [Text1]: CT abdomen/pelvis 01/04/2020: 1. Bowel wall thickening and pericolonic inflammatory stranding seen in the distal sigmoid colon and rectum suggesting a colitis. This may represent an infectious or inflammatory process. Acute diverticulitis or neoplasm cannot be excluded. 2. Mild dilatation of the right renal collecting system to the level of the inflammatory process in the pelvis. No obstructing stone is identified. 3. Urinary bladder wall thickening and adjacent inflammatory stranding suspicious for an infectious or inflammatory cystitis. 4. Interval development of a 4.5 cm right adrenal mass. Follow-up examination with an MRI and/or CT scan is recommended using the adrenal protocol. Metastatic disease cannot be excluded. 5. Emphysematous changes the lung bases. Labs on day of discharge: Labs from last 24 hours 01/06/20 01/06/20 09:00 09:00 WBC 8.19 RBC 3.08 L Hgb 9.5 L Hct 29.9 L MCV 97.1 H MCH 30.8 MCHC 31.8 L RDW 16.8 H Plt Count 419 H MPV 8.4 Immature Gran % 1.1 Neutrophils % 68.4 Lymphocytes % 18.1 Monocytes % 11.5 Eosinophils % 0.7 Basophils % 0.2 Absolute Neutrophils 5.60 Absolute Lymphocytes 1.48 Absolute Monocytes 0.94 H Absolute Eosinophils 0.06 Absolute Basophils 0.02 Differential Comment Rbc morph reviewed RBC Morphology See below Polychromasia Present Basophilic Stippling Present Anisocytosis 1+ Sodium 133 L Potassium 3.5 Chloride 96 L Carbon Dioxide 29.0 Anion Gap 8.0 BUN 4 L Creatinine 0.87 Estimated GFR/1.73 m2 >= 60.00 Glucose 127 H Calcium 8.4 L Magnesium 1.5 L C-Reactive Protein 9.44 H [facility] Medical History (Updated 01/06/20 @ 18:07 by Della Gonzalez MD) ACL tear (Acute) COPD (chronic obstructive pulmonary disease) (Chronic) Diverticulitis (Chronic) Diverticulosis (Acute) Essential hypertension (Chronic) Fe deficiency anemia (Suspected) H/O primary malignant neoplasm of urinary bladder (Acute) History of E. coli septicemia (Acute) Obstructive sleep apnea (Chronic) PAD (peripheral artery disease) (Acute) Paroxysmal atrial fibrillation (Acute) Surgical History Open Carpal Tunnel release right Repair, ACL (~1991) Family History Mother , 53 Essential hypertension Heart disease Stroke Father , 79 Essential hypertension Asthma Prostate cancer COPD (chronic obstructive pulmonary disease) Sister No problems noted. Sister Essential hypertension Brother Essential hypertension Maternal Grandfather No problems noted. Paternal Grandfather Prostate cancer Maternal Grandmother Diabetes Essential hypertension Paternal Grandmother Diabetes Essential hypertension Heart disease Son Essential hypertension Daughter Essential hypertension Social History Smoking/Tobacco Use Status: Former Tobacco Use Quit Date: 11/27/12 Alcohol Intake: current Alcohol Intake frequency: a few times a week Alcohol type: beer Drug use: Socially Substance use type: does not use Counseling given: Yes Household members: spouse Housing: other Details: Camper Pets and animals: No Sexually active: No Do you think of yourself as: straight/heterosexual Current gender identity: male What is your relationship status?: How often do you talk on the phone with friends or family?: decline to answer How often do you get together with friends or relatives?: once per week How often do you attend denominational or zoroastrianism services?: decline to answer Do you belong to any clubs or organized social groups?: yes Panel score (0-1 are the most socially isolated patients): 2 Duration: 45-60 minutes/day Frequency: daily Munira/Gnosticist: Oriental Orthodox Special munira needs: Yes Details: Last rites Seatbelt use: always Drive intox or ride w/intox lifter/driver: No Do you feel safe at home: Yes Do you feel safe in your relationship?: Yes
[2020-01-06 18:07] VITALS: BP 108/69; PULSE 84; RESP 18; TEMP 36.2; O2SAT 95
[2020-01-07 10:43] LABS: Campylobacter PCR Negative (Negative); Salmonella PCR Negative (Negative); Shiga Toxin PCR Negative (Negative); Shigella/Enteroinvasive Ecoli Negative (Negative)
== END 2020-01-06 19:24 | disposition home or self-care (01) | DRG 641 ==
LOC: ER 20:47 → MS 20:51
PROVIDERS: Internal Medicine; Nurse Practitioner Family; Surgery; Admitting Provider General Practice; Emergency Provider Physician Assistant; PCP Family Medicine; Visit Provider Internal Medicine
DX: E87.6 Hypokalemia (principal); C34.90 Malignant neoplasm of unspecified part of unspecified bronchus or lung; E83.42 Hypomagnesemia; D50.9 Iron deficiency anemia, unspecified; R53.1 Weakness; K52.89 Other specified noninfective gastroenteritis and colitis; N13.9 Obstructive and reflux uropathy, unspecified; R09.02 Hypoxemia; Z03.818 Encounter for observation for suspected exposure to other biological agents ruled out; G47.33 Obstructive sleep apnea (adult) (pediatric); Z91.19 Patient's noncompliance with other medical treatment and regimen; I10 Essential (primary) hypertension; J44.9 Chronic obstructive pulmonary disease, unspecified; Z79.899 Other long term (current) drug therapy; K21.9 Gastro-esophageal reflux disease without esophagitis; Z86.19 Personal history of other infectious and parasitic diseases; Z87.891 Personal history of nicotine dependence
CPT/HCPCS: 36415; 36430; 36592; 80048; 80053; 85027; 86850; 86900; 86901; 86920; 87505; 93005; 94640; 96361; 96365; 96366; 96368; 97162; 99221; 99222; 99231; 99232; 99233; 99239; 99252; 99254; 99291; U0003; 74177; 81003; 81015; 82270; 82607; 83540; 83550; 83735; 84132; 84484; 85014; 85018; 85025; 86140; 87324; 93010; 94762; 99218; G0378; J0610; J0696; J0744; J1756; J3475; J3480; J3490; P9016; Q9967

== ENCOUNTER 2020-01-08 12:13 | Outpatient (CLI) | payer OTHER, SELFPAY ==
[2020-01-08 12:55] LABS: Abs Immature Grans 0.22 k/cumm (0.0-0.09); Absolute Basophil Count 0.03 k/cumm (0.0-0.2); Absolute Eosinophil Count 0.11 k/cumm (0.0-0.7); Absolute Lymphocyte Count 2.25 k/cumm (1.2-3.4); Absolute Monocyte Count 1.06 k/cumm (0.11-0.7); Absolute Neutrophil Count 6.63 k/cumm (1.2-6.7); Basophils % 0.3; Eosinophils % 1.1; HGB 10.8 g/dL (13.5-17.5); Immature Grans % 2.1 %; Lymphocytes % 21.8; Mean Corp. HGB Concentration 32.7 g/dL (32.0-36.0); Mean Corpuscular Hemoglobin 31.9 pg (27.0-33.0); Mean Corpuscular Volume 97.3 fL (80-95); Mean Platelet Volume 8.2 fL (8.0-11.0); Monocytes % 10.3; Neutrophils % 64.4; Platelet Count 458 x1000/uL (130-400); RBC 3.39 m/cumm (4.50-6.00); RBC Distribution Width 16.6 % (11.8-14.1)
[2020-01-08 13:27] LABS: Anion Gap 11.6 mmol/L (3-11); BUN 8 mg/dL (7-18); CO2 25.4 mmol/L (21.0-32.0); CREATININE 0.98 mg/dL (0.70-1.30); Calcium 8.6 mg/dL (8.5-10.1); Chloride 97 mmol/L (98-107); Glucose 113 mg/dL (74-106); Magnesium 1.5 mg/dL (1.8-2.4); Potassium 4.1 mmol/L (3.5-5.1); Sodium 134 mmol/L (136-145)
== END 2020-01-08 12:33 ==
PROVIDERS: PCP Family Medicine; Visit Provider Internal Medicine
DX: D64.9 Anemia, unspecified (principal); E83.42 Hypomagnesemia; E87.6 Hypokalemia
CPT/HCPCS: 36415; 80048; 83735; 85025

== ENCOUNTER 2020-01-16 04:06 | Outpatient (CLI) | payer OTHER, SELFPAY ==
[2020-01-16 14:30] LABS: HCT 35.4 % (40.0-50.0); HGB 11.4 g/dL (13.5-17.5); Mean Corp. HGB Concentration 32.2 g/dL (32.0-36.0); Mean Corpuscular Hemoglobin 31.1 pg (27.0-33.0); Mean Corpuscular Volume 96.7 fL (80-95); Mean Platelet Volume 8.3 fL (8.0-11.0); Platelet Count 408 x1000/uL (130-400); RBC 3.66 m/cumm (4.50-6.00); RBC Distribution Width 16.4 % (11.8-14.1); White Blood Cell Count 10.63 k/cumm (4.4-10.8)
[2020-01-16 15:08] LABS: ALT 16 U/L (16-63); AST 21 U/L (15-37); Albumin 2.7 g/dL (3.4-5.0); Alkaline Phosphatase 79 U/L (46-116); Anion Gap 9.5 mmol/L (3-11); BUN 8 mg/dL (7-18); Bilirubin, Total 0.3 mg/dL (0.2-1.0); CO2 27.5 mmol/L (21.0-32.0); CREATININE 0.91 mg/dL (0.70-1.30); Calcium 8.1 mg/dL (8.5-10.1); Chloride 100 mmol/L (98-107); Glucose 118 mg/dL (74-106); Potassium 3.2 mmol/L (3.5-5.1); Sodium 137 mmol/L (136-145); Total Protein 6.8 g/dL (6.4-8.2)
[2020-01-19 17:57] LABS: Magnesium 1.3 mg/dL (1.8-2.4)
== END 2020-01-16 04:26 ==
PROVIDERS: Family Medicine; Nurse Practitioner Adult Health; PCP Family Medicine; Visit Provider Nurse Practitioner
DX: I10 Essential (primary) hypertension (principal); Z86.2 Personal history of diseases of the blood and blood-forming organs and certain disorders involving the immune mechanism; C34.91 Malignant neoplasm of unspecified part of right bronchus or lung
CPT/HCPCS: 36415; 80053; 85027; 83735

== ENCOUNTER 2020-01-26 02:13 | Outpatient (RCR) | payer OTHER, SELFPAY ==
[2020-01-26] MEDS: MAGNESIUM SULFATE 2 GM/50 ML BAG IVPB (08:25)
[2020-01-26] MEDS: Normal Saline Flush 10 ML SYR IVP (10:42)
== END 2020-01-27 23:59 | disposition home or self-care (01) ==
LOC: INF 02:13
PROVIDERS: PCP Family Medicine; Visit Provider Internal Medicine
DX: C34.91 Malignant neoplasm of unspecified part of right bronchus or lung (principal)
CPT/HCPCS: 96365; 96366

== ENCOUNTER 2020-01-29 02:28 | Outpatient (CLI) | payer OTHER, SELFPAY ==
[2020-01-29 15:46] LABS: Anion Gap 13.6 mmol/L (3-11); BUN 15 mg/dL (7-18); CO2 24.4 mmol/L (21.0-32.0); CREATININE 1.01 mg/dL (0.70-1.30); Calcium 8.9 mg/dL (8.5-10.1); Chloride 100 mmol/L (98-107); Glucose 173 mg/dL (74-106); Magnesium 1.2 mg/dL (1.8-2.4); Potassium 3.7 mmol/L (3.5-5.1); Sodium 138 mmol/L (136-145)
== END 2020-01-29 02:48 ==
PROVIDERS: PCP Family Medicine; Visit Provider Internal Medicine Hematology & Oncology
DX: C34.91 Malignant neoplasm of unspecified part of right bronchus or lung (principal)
CPT/HCPCS: 36415; 80048; 83735

== ENCOUNTER 2020-02-02 10:28 | Outpatient (CLI) | payer OTHER, SELFPAY ==
[2020-02-02 13:17] LABS: Anion Gap 8.5 mmol/L (3-11); BUN 13 mg/dL (7-18); CO2 26.5 mmol/L (21.0-32.0); CREATININE 0.84 mg/dL (0.70-1.30); Calcium 8.5 mg/dL (8.5-10.1); Chloride 100 mmol/L (98-107); Glucose 107 mg/dL (74-106); Magnesium 1.2 mg/dL (1.8-2.4); Potassium 3.9 mmol/L (3.5-5.1); Sodium 135 mmol/L (136-145)
== END 2020-02-02 10:48 ==
PROVIDERS: PCP Family Medicine; Visit Provider Nurse Practitioner Adult Health
DX: C34.91 Malignant neoplasm of unspecified part of right bronchus or lung (principal); N13.1 Hydronephrosis with ureteral stricture, not elsewhere classified
CPT/HCPCS: 36415; 80048; 83735; 87086

== ENCOUNTER 2020-02-09 12:00 | Outpatient (RCR) | payer OTHER, SELFPAY ==
[2020-02-03] MEDS: MAGNESIUM SULFATE 2 GM/50 ML BAG IVPB (12:49)
[2020-02-03] MEDS: Normal Saline Flush 10 ML SYR IVP (12:52)
[2020-02-09] MEDS: Normal Saline Flush 10 ML SYR IVP (12:51)
[2020-02-09 13:03] LABS: Abs Immature Grans 0.01 k/cumm (0.0-0.09); Absolute Basophil Count 0.05 k/cumm (0.0-0.2); Absolute Eosinophil Count 0.12 k/cumm (0.0-0.7); Absolute Lymphocyte Count 2.46 k/cumm (1.2-3.4); Absolute Monocyte Count 0.78 k/cumm (0.11-0.7); Absolute Neutrophil Count 1.32 k/cumm (1.2-6.7); Basophils % 1.1; Eosinophils % 2.5; HCT 39.8 % (40.0-50.0); HGB 13.4 g/dL (13.5-17.5); Immature Grans % 0.2 %; Lymphocytes % 51.9; Mean Corp. HGB Concentration 33.7 g/dL (32.0-36.0); Mean Corpuscular Hemoglobin 31.5 pg (27.0-33.0); Mean Corpuscular Volume 93.4 fL (80-95); Mean Platelet Volume 9.1 fL (8.0-11.0); Monocytes % 16.5; Neutrophils % 27.8; RBC 4.26 m/cumm (4.50-6.00); RBC Distribution Width 14.7 % (11.8-14.1); White Blood Cell Count 4.74 k/cumm (4.4-10.8)
[2020-02-09 13:07] LABS: Platelet Count 215 x1000/uL (130-400)
[2020-02-09 13:17] LABS: ALT 22 U/L (16-63); AST 21 U/L (15-37); Albumin 3.2 g/dL (3.4-5.0); Alkaline Phosphatase 120 U/L (46-116); Anion Gap 9.4 mmol/L (3-11); BUN 10 mg/dL (7-18); Bilirubin, Total 0.4 mg/dL (0.2-1.0); CO2 26.6 mmol/L (21.0-32.0); CREATININE 0.83 mg/dL (0.70-1.30); Calcium 8.7 mg/dL (8.5-10.1); Chloride 99 mmol/L (98-107); FREE T4 0.98 ng/dL (0.76-1.46); Glucose 110 mg/dL (74-106); LDH 195 U/L (85-227); Sodium 135 mmol/L (136-145); TSH 1.72 uIU/mL (0.36-3.74); Total Protein 7.6 g/dL (6.4-8.2)
[2020-02-09 15:53] LABS: Magnesium 1.3 mg/dL (1.8-2.4)
== END 2020-02-27 23:59 | disposition home or self-care (01) ==
LOC: INF 12:00
PROVIDERS: Nurse Practitioner Adult Health; PCP Family Medicine; Visit Provider Internal Medicine
DX: C34.91 Malignant neoplasm of unspecified part of right bronchus or lung (principal); Z79.899 Other long term (current) drug therapy
CPT/HCPCS: 36415; 80053; 96365; 96366; 83615; 83735; 84439; 84443; 85025

== ENCOUNTER 2020-03-01 10:46 | Outpatient (RCR) | payer OTHER, SELFPAY ==
[2020-03-01 11:20] LABS: Abs Immature Grans 0.04 10^3/uL (0.0-0.06); Absolute Basophil Count 0.05 10^3/uL (0.0-0.2); Absolute Eosinophil Count 0.31 10^3/uL (0.0-0.7); Absolute Lymphocyte Count 2.72 10^3/uL (1.2-3.4); Absolute Monocyte Count 0.93 10^3/uL (0.1-0.8); Absolute Neutrophil Count 6.72 10^3/uL (1.2-6.7); Basophils % 0.5; Eosinophils % 2.9; HCT 40.8 % (40.0-50.0); HGB 13.6 g/dL (13.5-17.5); Immature Grans % 0.4; Lymphocytes % 25.3; MCH 30.8 pg (27.0-33.0); MCHC 33.3 % (32.0-36.0); MCV 92.3 fL (80-95); MPV 8.9 fL (8.0-11.0); Monocytes % 8.6; Neutrophils % 62.3; Platelet Count 250 10^3/uL (130-400); RBC 4.42 10^6/uL (4.36-5.78); RDW 13.7 % (11.8-14.1); WBC 10.77 10^3/uL (4.4-10.8)
[2020-03-01 11:39] LABS: ALT 16 U/L (16-63); AST 16 U/L (15-37); Alkaline Phosphatase 119 U/L (46-116); Anion Gap 9.3 mmol/L (3-11); BUN 13 mg/dL (7-18); Bilirubin, Total 0.2 mg/dL (0.2-1.0); CO2 27.7 mmol/L (21.0-32.0); CREATININE 0.87 mg/dL (0.70-1.30); Calcium 8.5 mg/dL (8.5-10.1); Chloride 100 mmol/L (98-107); FREE T4 0.89 ng/dL (0.76-1.46); Glucose 145 mg/dL (74-106); LDH 153 U/L (85-227); Magnesium 1.4 mg/dL (1.8-2.4); Potassium 3.7 mmol/L (3.5-5.1); Sodium 137 mmol/L (136-145); TSH 2.82 uIU/mL (0.36-3.74); Total Protein 7.5 g/dL (6.4-8.2)
== END 2020-03-29 23:59 | disposition home or self-care (01) ==
LOC: INF 10:46
PROVIDERS: PCP Family Medicine; Visit Provider Nurse Practitioner Adult Health
DX: C34.91 Malignant neoplasm of unspecified part of right bronchus or lung (principal); Z79.899 Other long term (current) drug therapy
CPT/HCPCS: 80053; 83615; 83735; 84439; 84443; 85025

== ENCOUNTER 2020-04-12 01:36 | Outpatient (RCR) | payer OTHER, SELFPAY | END 2020-04-28 23:59 | disposition home or self-care (01) | LOC: INF 01:36 | PROVIDERS: PCP Family Medicine; Visit Provider Internal Medicine Hematology & Oncology | DX: Z53.9 Procedure and treatment not carried out, unspecified reason (principal) ==

== ENCOUNTER 2020-04-12 11:18 | Outpatient (CLI) | payer OTHER, SELFPAY | END 2020-04-12 11:38 | PROVIDERS: PCP Family Medicine; Visit Provider Urology | DX: R39.9 Unspecified symptoms and signs involving the genitourinary system (principal) | CPT/HCPCS: 87086 ==

== ENCOUNTER 2020-12-08 09:05 | Outpatient (CLI) | payer OTHER, SELFPAY ==
[2020-12-08 12:10] LABS: Abs Immature Grans 0.05 10^3/uL (0.0-0.06); Absolute Basophil Count 0.07 10^3/uL (0.0-0.2); Absolute Eosinophil Count 0.52 10^3/uL (0.0-0.7); Absolute Lymphocyte Count 2.81 10^3/uL (1.2-3.4); Absolute Monocyte Count 0.89 10^3/uL (0.1-0.8); Absolute Neutrophil Count 5.41 10^3/uL (1.2-6.7); Basophils % 0.7; Eosinophils % 5.3; HCT 45.2 % (40.0-50.0); HGB 14.5 g/dL (13.5-17.5); Immature Grans % 0.5; Lymphocytes % 28.8; MCH 30.4 pg (27.0-33.0); MCHC 32.1 % (32.0-36.0); MCV 94.8 fL (80-95); Monocytes % 9.1; Neutrophils % 55.6; Nucleated RBC 0 %; Platelet Count 262 10^3/uL (130-400); RBC 4.77 10^6/uL (4.36-5.78); RDW 15.7 % (11.8-14.1); RDW-SD 55.8 fL; WBC 9.75 10^3/uL (4.4-10.8)
[2020-12-08 12:30] LABS: ALT 21 U/L (16-63); AST 22 U/L (15-37); Albumin 3.4 g/dL (3.4-5.0); Alkaline Phosphatase 117 U/L (46-116); Anion Gap 7.6 mmol/L (3-11); BUN 15 mg/dL (7-18); Bilirubin, Total 0.6 mg/dL (0.2-1.0); CO2 28.4 mmol/L (21.0-32.0); CREATININE 0.8 mg/dL (0.70-1.30); Calcium 8.7 mg/dL (8.5-10.1); Chloride 102 mmol/L (98-107); FREE T4 1.01 ng/dL (0.76-1.46); Glucose 102 mg/dL (74-106); LDH 185 U/L (85-227); Sodium 138 mmol/L (136-145); TSH 1.43 uIU/mL (0.36-3.74); Total Protein 7.6 g/dL (6.4-8.2)
== END 2020-12-08 09:06 | disposition home or self-care (01) ==
LOC: LBO 09:06
PROVIDERS: PCP Family Medicine; Visit Provider Nurse Practitioner Adult Health
DX: C34.91 Malignant neoplasm of unspecified part of right bronchus or lung (principal); Z79.899 Other long term (current) drug therapy; E03.2 Hypothyroidism due to medicaments and other exogenous substances
CPT/HCPCS: 36415; 80053; 83615; 84439; 84443; 85025

== ENCOUNTER 2020-12-15 02:49 | Outpatient (CLI) | payer OTHER, SELFPAY ==
[2020-12-15 12:37] LABS: Abs Immature Grans 0.05 10^3/uL (0.0-0.06); Absolute Basophil Count 0.07 10^3/uL (0.0-0.2); Absolute Eosinophil Count 0.52 10^3/uL (0.0-0.7); Absolute Lymphocyte Count 2.86 10^3/uL (1.2-3.4); Absolute Neutrophil Count 5.68 10^3/uL (1.2-6.7); Basophils % 0.7; Eosinophils % 5.4; HCT 43.1 % (40.0-50.0); HGB 13.8 g/dL (13.5-17.5); Immature Grans % 0.5; Lymphocytes % 29.5; MCH 29.8 pg (27.0-33.0); MCV 93.1 fL (80-95); MPV 8.7 fL (8.0-11.0); Monocytes % 5.2; Neutrophils % 58.7; Nucleated RBC 0 %; Platelet Count 286 10^3/uL (130-400); RBC 4.63 10^6/uL (4.36-5.78); RDW 15.4 % (11.8-14.1); RDW-SD 52.9 fL; WBC 9.68 10^3/uL (4.4-10.8)
[2020-12-15 14:04] LABS: ALT 22 U/L (16-63); AST 17 U/L (15-37); Albumin 3.4 g/dL (3.4-5.0); Alkaline Phosphatase 102 U/L (46-116); Anion Gap 8.1 mmol/L (3-11); BUN 15 mg/dL (7-18); Bilirubin, Total 0.5 mg/dL (0.2-1.0); CO2 29.9 mmol/L (21.0-32.0); CREATININE 0.9 mg/dL (0.70-1.30); Calcium 8.6 mg/dL (8.5-10.1); Chloride 99 mmol/L (98-107); FREE T4 1.09 ng/dL (0.76-1.46); Glucose 124 mg/dL (74-106); LDH 156 U/L (85-227); Potassium 3.9 mmol/L (3.5-5.1); Sodium 137 mmol/L (136-145); TSH 1.26 uIU/mL (0.36-3.74); Total Protein 7.1 g/dL (6.4-8.2)
== END 2020-12-15 02:50 | disposition home or self-care (01) ==
LOC: LBO 02:49
PROVIDERS: PCP Family Medicine; Visit Provider Nurse Practitioner Adult Health
DX: C34.91 Malignant neoplasm of unspecified part of right bronchus or lung (principal); E03.2 Hypothyroidism due to medicaments and other exogenous substances; R39.9 Unspecified symptoms and signs involving the genitourinary system
CPT/HCPCS: 36415; 80053; 83615; 84439; 84443; 85025; 87086

== ENCOUNTER 2020-12-29 03:16 | Outpatient (CLI) | payer OTHER, SELFPAY ==
[2020-12-29 11:46] LABS: Abs Immature Grans 0.04 10^3/uL (0.0-0.06); Absolute Basophil Count 0.04 10^3/uL (0.0-0.2); Absolute Eosinophil Count 0.21 10^3/uL (0.0-0.7); Absolute Lymphocyte Count 2.51 10^3/uL (1.2-3.4); Absolute Neutrophil Count 4.26 10^3/uL (1.2-6.7); Basophils % 0.5; Eosinophils % 2.7; HCT 43.1 % (40.0-50.0); Immature Grans % 0.5; Lymphocytes % 32.3; MCH 29.9 pg (27.0-33.0); MCHC 32.5 % (32.0-36.0); MCV 92.1 fL (80-95); MPV 10.3 fL (8.0-11.0); Nucleated RBC 0 %; Platelet Count 260 10^3/uL (130-400); RBC 4.68 10^6/uL (4.36-5.78); RDW 15.8 % (11.8-14.1); RDW-SD 53.4 fL; WBC 7.76 10^3/uL (4.4-10.8)
[2020-12-29 11:55] LABS: Hemoglobin A1C 5.6 % (<5.7)
[2020-12-29 12:04] LABS: FREE T4 0.91 ng/dL (0.76-1.46); LDH 174 U/L (85-227); TSH 1.09 uIU/mL (0.36-3.74)
[2020-12-29 12:45] LABS: ALT 25 U/L (16-63); AST 16 U/L (15-37); Albumin 3.1 g/dL (3.4-5.0); Alkaline Phosphatase 115 U/L (46-116); Anion Gap 9.2 mmol/L (3-11); BUN 7 mg/dL (7-18); Bilirubin, Total 0.4 mg/dL (0.2-1.0); CO2 27.8 mmol/L (21.0-32.0); CREATININE 0.7 mg/dL (0.70-1.30); Calcium 8.4 mg/dL (8.5-10.1); Calculated LDL 73 mg/dL (<100); Chloride 103 mmol/L (98-107); Cholesterol 133 mg/dL (<200); Glucose 154 mg/dL (74-106); HDL Cholesterol 39 mg/dL (40-60); Potassium 3.4 mmol/L (3.5-5.1); Sodium 140 mmol/L (136-145); Total Protein 6.8 g/dL (6.4-8.2); Triglyceride 105 mg/dL (<150)
== END 2020-12-29 03:17 | disposition home or self-care (01) ==
PROVIDERS: Nurse Practitioner Adult Health; PCP Family Medicine; Visit Provider Internal Medicine Hematology & Oncology
DX: C34.91 Malignant neoplasm of unspecified part of right bronchus or lung (principal); E03.2 Hypothyroidism due to medicaments and other exogenous substances; R39.9 Unspecified symptoms and signs involving the genitourinary system
CPT/HCPCS: 36415; 80053; 80061; 83036; 83615; 84439; 84443; 85025; 87086

== ENCOUNTER 2021-01-05 02:44 | Outpatient (CLI) | payer OTHER, SELFPAY ==
[2021-01-05 11:52] LABS: Abs Immature Grans 0.05 10^3/uL (0.0-0.06); Absolute Basophil Count 0.04 10^3/uL (0.0-0.2); Absolute Eosinophil Count 0.19 10^3/uL (0.0-0.7); Absolute Lymphocyte Count 2.38 10^3/uL (1.2-3.4); Absolute Monocyte Count 0.37 10^3/uL (0.1-0.8); Absolute Neutrophil Count 4.75 10^3/uL (1.2-6.7); Basophils % 0.5; Eosinophils % 2.4; HGB 14.4 g/dL (13.5-17.5); Immature Grans % 0.6; Lymphocytes % 30.6; MCH 29.8 pg (27.0-33.0); MCHC 32.7 % (32.0-36.0); MCV 91.1 fL (80-95); MPV 9.9 fL (8.0-11.0); Monocytes % 4.8; Neutrophils % 61.1; Nucleated RBC 0 %; Platelet Count 268 10^3/uL (130-400); RBC 4.83 10^6/uL (4.36-5.78); RDW-SD 50.4 fL; WBC 7.78 10^3/uL (4.4-10.8)
[2021-01-05 12:16] LABS: ALT 21 U/L (16-63); AST 15 U/L (15-37); Albumin 3.1 g/dL (3.4-5.0); Alkaline Phosphatase 118 U/L (46-116); Anion Gap 7.7 mmol/L (3-11); BUN 9 mg/dL (7-18); Bilirubin, Total 0.3 mg/dL (0.2-1.0); CO2 29.3 mmol/L (21.0-32.0); CREATININE 0.8 mg/dL (0.70-1.30); Calcium 8.7 mg/dL (8.5-10.1); Chloride 100 mmol/L (98-107); FREE T4 0.91 ng/dL (0.76-1.46); Glucose 133 mg/dL (74-106); Potassium 3.8 mmol/L (3.5-5.1); Sodium 137 mmol/L (136-145); Total Protein 7.1 g/dL (6.4-8.2)
[2021-01-05 13:30] LABS: LDH 171 U/L (85-227)
== END 2021-01-05 02:45 | disposition home or self-care (01) ==
PROVIDERS: PCP Family Medicine; Visit Provider Internal Medicine Hematology & Oncology
DX: C34.91 Malignant neoplasm of unspecified part of right bronchus or lung (principal); E03.2 Hypothyroidism due to medicaments and other exogenous substances
CPT/HCPCS: 36415; 80053; 83615; 84439; 84443; 85025

== ENCOUNTER 2021-01-27 04:23 | Outpatient (CLI) | payer OTHER, SELFPAY ==
[2021-01-27 12:14] LABS: Abs Immature Grans 0.09 10^3/uL (0.0-0.06); Absolute Basophil Count 0.03 10^3/uL (0.0-0.2); Absolute Eosinophil Count 0.22 10^3/uL (0.0-0.7); Absolute Lymphocyte Count 2.04 10^3/uL (1.2-3.4); Absolute Monocyte Count 0.32 10^3/uL (0.1-0.8); Absolute Neutrophil Count 5.35 10^3/uL (1.2-6.7); Basophils % 0.4; Eosinophils % 2.7; HCT 42.4 % (40.0-50.0); HGB 13.7 g/dL (13.5-17.5); Immature Grans % 1.1; Lymphocytes % 25.3; MCH 29.3 pg (27.0-33.0); MCHC 32.3 % (32.0-36.0); MCV 90.8 fL (80-95); MPV 9.9 fL (8.0-11.0); Neutrophils % 66.5; Nucleated RBC 0 %; Platelet Count 254 10^3/uL (130-400); RBC 4.67 10^6/uL (4.36-5.78); RDW 15.5 % (11.8-14.1); RDW-SD 50.9 fL; WBC 8.05 10^3/uL (4.4-10.8)
[2021-01-27 12:36] LABS: ALT 19 U/L (16-63); AST 14 U/L (15-37); Albumin 2.8 g/dL (3.4-5.0); Alkaline Phosphatase 98 U/L (46-116); Anion Gap 7.5 mmol/L (3-11); BUN 11 mg/dL (7-18); Bilirubin, Total 0.2 mg/dL (0.2-1.0); CO2 28.5 mmol/L (21.0-32.0); CREATININE 0.8 mg/dL (0.70-1.30); Calcium 8.2 mg/dL (8.5-10.1); Chloride 103 mmol/L (98-107); FREE T4 0.92 ng/dL (0.76-1.46); Glucose 179 mg/dL (74-106); LDH 190 U/L (85-227); Potassium 3.3 mmol/L (3.5-5.1); Sodium 139 mmol/L (136-145); TSH 1.87 uIU/mL (0.36-3.74); Total Protein 6.6 g/dL (6.4-8.2)
== END 2021-01-27 04:24 | disposition home or self-care (01) ==
LOC: LBO 04:23
PROVIDERS: PCP Family Medicine; Visit Provider Internal Medicine Hematology & Oncology
DX: C34.91 Malignant neoplasm of unspecified part of right bronchus or lung (principal); E03.2 Hypothyroidism due to medicaments and other exogenous substances
CPT/HCPCS: 36415; 80053; 83615; 84439; 84443; 85025